=== PATIENT | male | born 1950 | race Caucasian/White ===

== ENCOUNTER 2018-05-15 20:11 | Outpatient (REF) | payer MEDICARE, BC, SELFPAY ==
[2018-05-15 20:44] LABS: Anion Gap 6.9 mmol/L (3-11); BUN 17 mg/dL (7-18); CO2 33.1 mmol/L (21.0-32.0); CREATININE 1.25 mg/dL (0.70-1.30); Calcium 8.9 mg/dL (8.5-10.1); Chloride 104 mmol/L (98-107); Estimated GFR 57.61 (mL/min/1.73m2); Glucose 95 mg/dL (70-100); Potassium 4.9 mmol/L (3.5-5.1); Sodium 144 mmol/L (136-145)
== END 2018-05-15 20:31 ==
LOC: NCHCN 20:11
PROVIDERS: PCP Specialist/Technologist Athletic Trainer; Visit Provider Specialist/Technologist Athletic Trainer
DX: I10 Essential (primary) hypertension (principal)
CPT/HCPCS: 80048

== ENCOUNTER 2020-08-09 08:14 | Outpatient (REF) | payer MEDICARE, BC, SELFPAY ==
[2020-08-09 13:47] LABS: HGB 14.8 g/dL (13.5-17.5); MCH 32.3 pg (27.0-33.0); MCHC 32.9 % (32.0-36.0); MCV 98.3 fL (80-95); MPV 10.9 fL (8.0-11.0); Platelet Count 191 10^3/uL (130-400); RBC 4.58 10^6/uL (4.36-5.78); RDW 12.4 % (11.8-14.1); RDW-SD 44.7 fL; WBC 5.33 10^3/uL (4.4-10.8)
[2020-08-09 14:32] LABS: Anion Gap 5.4 mmol/L (3-11); BUN 16 mg/dL (7-18); CO2 32.6 mmol/L (21.0-32.0); Calcium 8.7 mg/dL (8.5-10.1); Calculated LDL 144 mg/dL (<100); Chloride 106 mmol/L (98-107); Cholesterol 208 mg/dL (<200); Glucose 104 mg/dL (74-106); HDL Cholesterol 49 mg/dL (40-60); Potassium 5.3 mmol/L (3.5-5.1); Sodium 144 mmol/L (136-145); Triglyceride 77 mg/dL (<150)
== END 2020-08-09 08:15 | disposition home or self-care (01) ==
LOC: NCHCN 08:14
PROVIDERS: PCP Specialist/Technologist Athletic Trainer; Visit Provider Family Medicine
DX: I10 Essential (primary) hypertension (principal)
CPT/HCPCS: 80048; 80061; 85027

== ENCOUNTER 2021-07-26 14:30 | Outpatient (REF) | payer MEDICARE, BC, SELFPAY ==
[2021-07-26 18:58] LABS: ALT 27 U/L (16-63); AST 16 U/L (15-37); Albumin 3.9 g/dL (3.4-5.0); Alkaline Phosphatase 85 U/L (46-116); Anion Gap 8.4 mmol/L (3-11); BUN 17 mg/dL (7-18); CO2 27.6 mmol/L (21.0-32.0); Calculated LDL 155 mg/dL (<100); Chloride 105 mmol/L (98-107); Cholesterol 228 mg/dL (<200); Glucose 104 mg/dL (74-106); HDL Cholesterol 48 mg/dL (40-60); Potassium 5.6 mmol/L (3.5-5.1); Sodium 141 mmol/L (136-145); Total Protein 7.1 g/dL (6.4-8.2); Triglyceride 126 mg/dL (<150)
== END 2021-07-26 14:31 | disposition home or self-care (01) ==
LOC: NCHCN 14:30
PROVIDERS: PCP Specialist/Technologist Athletic Trainer; Visit Provider Family Medicine
DX: E78.5 Hyperlipidemia, unspecified (principal)
CPT/HCPCS: 80053; 80061

== ENCOUNTER 2021-11-09 18:41 | Outpatient (REF) | payer MEDICARE, BC, SELFPAY ==
[2021-11-09 16:26] LABS: Anion Gap 6.4 mmol/L (3-11); BUN 21 mg/dL (7-18); CO2 30.6 mmol/L (21.0-32.0); CREATININE 1.3 mg/dL (0.70-1.30); Calcium 8.9 mg/dL (8.5-10.1); Chloride 103 mmol/L (98-107); Estimated GFR 54.57 (mL/min/1.73m2); Glucose 86 mg/dL (74-106); Potassium 4.6 mmol/L (3.5-5.1); Sodium 140 mmol/L (136-145)
== END 2021-11-09 18:42 | disposition home or self-care (01) ==
LOC: NCHCN 18:41
PROVIDERS: PCP Specialist/Technologist Athletic Trainer; Visit Provider Family Medicine
DX: I10 Essential (primary) hypertension (principal)
CPT/HCPCS: 80048

== ENCOUNTER 2022-03-31 15:58 | Outpatient (REF) | payer MEDICARE, BC, SELFPAY ==
[2022-03-31 21:27] LABS: Abs Immature Grans 0.01 10^3/uL (0.0-0.06); Absolute Basophil Count 0.03 10^3/uL (0.0-0.2); Absolute Eosinophil Count 0.16 10^3/uL (0.0-0.7); Absolute Lymphocyte Count 2.25 10^3/uL (1.2-3.4); Absolute Monocyte Count 0.51 10^3/uL (0.1-0.8); Absolute Neutrophil Count 3.75 10^3/uL (1.2-6.7); Basophils % 0.4; Eosinophils % 2.4; HCT 40.5 % (40.0-50.0); HGB 13.3 g/dL (13.5-17.5); Immature Grans % 0.1; Lymphocytes % 33.5; MCH 32.4 pg (27.0-33.0); MCHC 32.8 % (32.0-36.0); MCV 99 fL (80-95); MPV 10.4 fL (8.0-11.0); Monocytes % 7.6; Platelet Count 229 10^3/uL (130-400); RDW 12.4 % (11.8-14.1); RDW-SD 45.1 fL; WBC 6.71 10^3/uL (4.4-10.8)
[2022-03-31 21:45] LABS: BUN 26 mg/dL (7-18); CREATININE 1.1 mg/dL (0.70-1.30); Calcium 8.6 mg/dL (8.5-10.1); Chloride 101 mmol/L (98-107); Estimated GFR 71.77 (mL/min/1.73m2); Glucose 99 mg/dL (74-106); Magnesium 2.1 mg/dL (1.8-2.4); Potassium 4.1 mmol/L (3.5-5.1); Sodium 140 mmol/L (136-145); TSH (W/Ref FT4) 2.27 uIU/mL (0.36-3.74)
== END 2022-03-31 15:59 | disposition home or self-care (01) ==
LOC: NCHCN 15:58
PROVIDERS: PCP Specialist/Technologist Athletic Trainer; Visit Provider Family Medicine
DX: R00.2 Palpitations (principal); I10 Essential (primary) hypertension
CPT/HCPCS: 80048; 83735; 84443; 85025

== ENCOUNTER 2022-04-06 10:57 | Outpatient (CLI) | payer MEDICARE, BC, SELFPAY | END 2022-04-06 10:58 | disposition home or self-care (01) | PROVIDERS: PCP Specialist/Technologist Athletic Trainer; Visit Provider Family Medicine | DX: R00.2 Palpitations (principal) | CPT/HCPCS: 93246 ==

== ENCOUNTER 2022-05-08 11:30 | Outpatient (CLI) | payer MEDICARE, BC, SELFPAY ==
--- NOTE | 2022-05-08 11:51 | W.CARDEVENT ---
Date of service: 05/08/22 Time of Service: 11:52 Cardiac Event Recorder Referring Provider:: Chau Braxton Indications:: Palpitations Cardiac Event Note: This is a 14-day cardiac event monitor ordered for palpitations Predominant rhythm was sinus with an average heart rate overall of 72. Minimum was 51, maximum 120 There were rare ventricular ectopic beats There were occasional atrial premature beat. A total of 31 self-limited atrial runs occurred. Most of these were 3-4 beats in length. The longest was 6 beats in length. There was no atrial fibrillation, no high-grade AV block, no pauses greater than 3 seconds no patient symptoms were reported
== END 2022-05-08 11:31 | disposition home or self-care (01) ==
LOC: CARDOPNVT 11:30
PROVIDERS: PCP Specialist/Technologist Athletic Trainer; Visit Provider Internal Medicine Cardiovascular Disease
DX: I49.1 Atrial premature depolarization (principal)
CPT/HCPCS: 93248

== ENCOUNTER 2022-08-17 10:39 | Outpatient (REF) | payer MEDICARE, BC, SELFPAY ==
[2022-08-17 16:13] LABS: BUN 22 mg/dL (7-18); CREATININE 1.3 mg/dL (0.70-1.30); Calcium 8.9 mg/dL (8.5-10.1); Chloride 103 mmol/L (98-107); Estimated GFR 58.73 (mL/min/1.73m2); Glucose 100 mg/dL (74-106); Potassium 4.6 mmol/L (3.5-5.1); Sodium 142 mmol/L (136-145)
== END 2022-08-17 10:40 | disposition home or self-care (01) ==
LOC: NCHCN 10:39
PROVIDERS: PCP Specialist/Technologist Athletic Trainer; Visit Provider Family Medicine
DX: I10 Essential (primary) hypertension (principal)
CPT/HCPCS: 80048; 84402; 84403

== ENCOUNTER 2022-08-21 18:40 | Outpatient (REF) | payer MEDICARE, BC, SELFPAY ==
[2022-08-29 17:51] LABS: Testosterone, Free 11.3 ng/dL (3.28-12.2); Testosterone, Total 365 ng/dL (240-950)
== END 2022-08-21 18:41 | disposition home or self-care (01) ==
LOC: NCHCN 18:40
PROVIDERS: PCP Specialist/Technologist Athletic Trainer; Visit Provider Family Medicine
DX: F52.21 Male erectile disorder (principal)
CPT/HCPCS: 84402; 84403

== ENCOUNTER 2023-01-03 04:02 | Outpatient (CLI) | payer MEDICARE, BC, SELFPAY ==
[2023-01-03 12:15] LABS: Abs Immature Grans 0.03 10^3/uL (0.0-0.06); Absolute Basophil Count 0.01 10^3/uL (0.0-0.2); Absolute Eosinophil Count 0.14 10^3/uL (0.0-0.7); Absolute Lymphocyte Count 2.41 10^3/uL (1.2-3.4); Absolute Monocyte Count 0.68 10^3/uL (0.1-0.8); Absolute Neutrophil Count 4.48 10^3/uL (1.2-6.7); Basophils % 0.1; Eosinophils % 1.8; HCT 36.5 % (40.0-50.0); HGB 11.9 g/dL (13.5-17.5); Immature Grans % 0.4; Lymphocytes % 31.1; MCH 31.3 pg (27.0-33.0); MCHC 32.6 % (32.0-36.0); MCV 96 fL (80-95); MPV 9.1 fL (8.0-11.0); Monocytes % 8.8; Neutrophils % 57.8; Platelet Count 267 10^3/uL (130-400); RDW 11.9 % (11.8-14.1); RDW-SD 42.1 fL; WBC 7.75 10^3/uL (4.4-10.8)
[2023-01-03 12:33] LABS: ALT 25 U/L (16-63); AST 20 U/L (15-37); Albumin 3.2 g/dL (3.4-5.0); Alkaline Phosphatase 135 U/L (46-116); Anion Gap 8.4 mmol/L (3-11); BUN 27 mg/dL (7-18); Bilirubin, Total 1.1 mg/dL (0.2-1.0); CO2 29.6 mmol/L (21.0-32.0); CREATININE 1.5 mg/dL (0.70-1.30); Calcium 9.2 mg/dL (8.5-10.1); Chloride 99 mmol/L (98-107); Estimated GFR 49.16 (mL/min/1.73m2); FREE T4 0.95 ng/dL (0.76-1.46); Glucose 122 mg/dL (74-106); Magnesium 2.3 mg/dL (1.8-2.4); Potassium 4.4 mmol/L (3.5-5.1); Sodium 137 mmol/L (136-145); TSH 1.52 uIU/mL (0.36-3.74); Total Protein 7.8 g/dL (6.4-8.2)
== END 2023-01-03 04:03 | disposition home or self-care (01) ==
PROVIDERS: Internal Medicine Medical Oncology; PCP Specialist/Technologist Athletic Trainer; Visit Provider Nurse Practitioner Family
DX: C34.11 Malignant neoplasm of upper lobe, right bronchus or lung (principal); Z79.899 Other long term (current) drug therapy
CPT/HCPCS: 36415; 80053; 83735; 84439; 84443; 85025

== ENCOUNTER 2023-01-22 10:33 | Outpatient (CLI) | payer MEDICARE, BC, SELFPAY ==
[2023-01-22 08:11] LABS: Abs Immature Grans 0.03 10^3/uL (0.0-0.06); Absolute Lymphocyte Count 1.48 10^3/uL (1.2-3.4); Absolute Monocyte Count 0.56 10^3/uL (0.1-0.8); Absolute Neutrophil Count 0.87 10^3/uL (1.2-6.7); Eosinophils % 3.3; HCT 30.5 % (40.0-50.0); Lymphocytes % 48.7; MCH 31.5 pg (27.0-33.0); MCHC 32.8 % (32.0-36.0); MCV 96 fL (80-95); MPV 8.1 fL (8.0-11.0); Monocytes % 18.4; Neutrophils % 28.6; Platelet Count 343 10^3/uL (130-400); RBC 3.17 10^6/uL (4.36-5.78); RDW-SD 43.2 fL; WBC 3.04 10^3/uL (4.4-10.8)
[2023-01-22 08:40] LABS: ALT 67 U/L (16-63); AST 23 U/L (15-37); Albumin 2.9 g/dL (3.4-5.0); Alkaline Phosphatase 151 U/L (46-116); BUN 14 mg/dL (7-18); Bilirubin, Total 0.5 mg/dL (0.2-1.0); CREATININE 1.4 mg/dL (0.70-1.30); Calcium 9.3 mg/dL (8.5-10.1); Chloride 100 mmol/L (98-107); FREE T4 1.04 ng/dL (0.76-1.46); Glucose 122 mg/dL (74-106); Magnesium 1.9 mg/dL (1.8-2.4); Potassium 4.5 mmol/L (3.5-5.1); Sodium 136 mmol/L (136-145); TSH 2.79 uIU/mL (0.36-3.74); Total Protein 7.3 g/dL (6.4-8.2)
[2023-01-22 09:01] LABS: Diff Comment Diff Reviewed; RBC Morphology Normal
== END 2023-01-22 10:34 | disposition home or self-care (01) ==
LOC: LBO 10:33
PROVIDERS: PCP Specialist/Technologist Athletic Trainer; Visit Provider Nurse Practitioner Family
DX: Z79.899 Other long term (current) drug therapy (principal)
CPT/HCPCS: 36415; 80053; 83735; 84439; 84443; 85025

== ENCOUNTER 2023-01-30 01:49 | Outpatient (CLI) | payer MEDICARE, BC, SELFPAY ==
[2023-01-30 11:39] LABS: Abs Immature Grans 0.24 10^3/uL (0.0-0.06); Absolute Basophil Count 0.03 10^3/uL (0.0-0.2); Absolute Eosinophil Count 0.02 10^3/uL (0.0-0.7); Absolute Lymphocyte Count 2.24 10^3/uL (1.2-3.4); Absolute Neutrophil Count 4.73 10^3/uL (1.2-6.7); Basophils % 0.4; Eosinophils % 0.2; HCT 31.7 % (40.0-50.0); HGB 10.3 g/dL (13.5-17.5); Immature Grans % 2.8; Lymphocytes % 26.5; MCH 31.8 pg (27.0-33.0); MCHC 32.5 % (32.0-36.0); MCV 98 fL (80-95); MPV 8.6 fL (8.0-11.0); Monocytes % 14.2; Neutrophils % 55.9; Platelet Count 301 10^3/uL (130-400); RBC 3.24 10^6/uL (4.36-5.78); RDW-SD 48.2 fL; WBC 8.46 10^3/uL (4.4-10.8)
[2023-01-30 12:04] LABS: ALT 32 U/L (16-63); AST 23 U/L (15-37); Alkaline Phosphatase 146 U/L (46-116); Anion Gap 8.5 mmol/L (3-11); BUN 17 mg/dL (7-18); Bilirubin, Total 0.6 mg/dL (0.2-1.0); CO2 28.5 mmol/L (21.0-32.0); CREATININE 1.2 mg/dL (0.70-1.30); Calcium 9.4 mg/dL (8.5-10.1); Chloride 98 mmol/L (98-107); Estimated GFR 64.25 (mL/min/1.73m2); FREE T4 1.03 ng/dL (0.76-1.46); Glucose 103 mg/dL (74-106); Potassium 4.1 mmol/L (3.5-5.1); Sodium 135 mmol/L (136-145); TSH 1.99 uIU/mL (0.36-3.74); Total Protein 7.6 g/dL (6.4-8.2)
== END 2023-01-30 01:50 | disposition home or self-care (01) ==
PROVIDERS: PCP Specialist/Technologist Athletic Trainer; Visit Provider Nurse Practitioner Family
DX: Z79.899 Other long term (current) drug therapy (principal); C34.11 Malignant neoplasm of upper lobe, right bronchus or lung
CPT/HCPCS: 36415; 80053; 83735; 84439; 84443; 85025

== ENCOUNTER 2023-02-19 03:28 | Outpatient (CLI) | payer MEDICARE, BC, SELFPAY ==
[2023-02-19 09:09] LABS: Abs Immature Grans 0.02 10^3/uL (0.0-0.06); Absolute Basophil Count 0.01 10^3/uL (0.0-0.2); Absolute Eosinophil Count 0.07 10^3/uL (0.0-0.7); Absolute Lymphocyte Count 1.63 10^3/uL (1.2-3.4); Absolute Monocyte Count 0.75 10^3/uL (0.1-0.8); Absolute Neutrophil Count 0.85 10^3/uL (1.2-6.7); Basophils % 0.3; Eosinophils % 2.1; HCT 30.2 % (40.0-50.0); HGB 9.7 g/dL (13.5-17.5); Immature Grans % 0.6; Lymphocytes % 48.9; MCH 32.2 pg (27.0-33.0); MCHC 32.1 % (32.0-36.0); MCV 100 fL (80-95); MPV 8.3 fL (8.0-11.0); Monocytes % 22.5; Neutrophils % 25.6; RBC 3.01 10^6/uL (4.36-5.78); RDW 16.6 % (11.8-14.1); RDW-SD 60.3 fL; WBC 3.33 10^3/uL (4.4-10.8)
[2023-02-19 09:37] LABS: ALT 35 U/L (16-63); AST 22 U/L (15-37); Albumin 3.1 g/dL (3.4-5.0); Alkaline Phosphatase 124 U/L (46-116); Anion Gap 6.3 mmol/L (3-11); BUN 23 mg/dL (7-18); Bilirubin, Total 0.6 mg/dL (0.2-1.0); CO2 27.7 mmol/L (21.0-32.0); CREATININE 1.5 mg/dL (0.70-1.30); Calcium 9.2 mg/dL (8.5-10.1); Chloride 104 mmol/L (98-107); Estimated GFR 49.16 (mL/min/1.73m2); FREE T4 0.92 ng/dL (0.76-1.46); Glucose 104 mg/dL (74-106); Magnesium 1.9 mg/dL (1.8-2.4); Potassium 4.2 mmol/L (3.5-5.1); Sodium 138 mmol/L (136-145); TSH 1.93 uIU/mL (0.36-3.74); Total Protein 7.6 g/dL (6.4-8.2)
[2023-02-19 09:50] LABS: Diff Comment Agrees w/ Instrument; Platelet Count 332 10^3/uL (130-400); RBC Morphology Normal
== END 2023-02-19 03:29 | disposition home or self-care (01) ==
PROVIDERS: PCP Specialist/Technologist Athletic Trainer; Visit Provider Nurse Practitioner Family
DX: Z79.899 Other long term (current) drug therapy (principal); C34.11 Malignant neoplasm of upper lobe, right bronchus or lung
CPT/HCPCS: 36415; 80053; 83735; 84439; 84443; 85025

== ENCOUNTER 2023-02-26 03:21 | Outpatient (CLI) | payer MEDICARE, BC, SELFPAY ==
[2023-02-26 12:25] LABS: Abs Immature Grans 0.06 10^3/uL (0.0-0.06); Absolute Basophil Count 0.03 10^3/uL (0.0-0.2); Absolute Eosinophil Count 0.07 10^3/uL (0.0-0.7); Absolute Lymphocyte Count 1.82 10^3/uL (1.2-3.4); Absolute Monocyte Count 0.81 10^3/uL (0.1-0.8); Absolute Neutrophil Count 3.35 10^3/uL (1.2-6.7); Basophils % 0.5; Eosinophils % 1.1; Lymphocytes % 29.6; MCH 32.3 pg (27.0-33.0); MCHC 32.3 % (32.0-36.0); MCV 100 fL (80-95); MPV 8.6 fL (8.0-11.0); Monocytes % 13.2; Neutrophils % 54.6; Platelet Count 268 10^3/uL (130-400); RDW 16.3 % (11.8-14.1); RDW-SD 59.2 fL; WBC 6.14 10^3/uL (4.4-10.8)
[2023-02-26 12:52] LABS: ALT 25 U/L (16-63); AST 22 U/L (15-37); Albumin 3.1 g/dL (3.4-5.0); Alkaline Phosphatase 136 U/L (46-116); Anion Gap 9.9 mmol/L (3-11); BUN 17 mg/dL (7-18); Bilirubin, Total 0.8 mg/dL (0.2-1.0); CO2 27.1 mmol/L (21.0-32.0); CREATININE 1.3 mg/dL (0.70-1.30); Calcium 9.1 mg/dL (8.5-10.1); Chloride 100 mmol/L (98-107); Estimated GFR 58.37 (mL/min/1.73m2); FREE T4 0.98 ng/dL (0.76-1.46); Glucose 117 mg/dL (74-106); Magnesium 2.3 mg/dL (1.8-2.4); Potassium 4.3 mmol/L (3.5-5.1); Sodium 137 mmol/L (136-145); TSH 3.16 uIU/mL (0.36-3.74); Total Protein 7.5 g/dL (6.4-8.2)
== END 2023-02-26 03:22 | disposition home or self-care (01) ==
PROVIDERS: PCP Specialist/Technologist Athletic Trainer; Visit Provider Nurse Practitioner Family
DX: Z79.899 Other long term (current) drug therapy (principal); C34.11 Malignant neoplasm of upper lobe, right bronchus or lung
CPT/HCPCS: 36415; 80053; 83735; 84439; 84443; 85025

== ENCOUNTER 2023-03-19 04:29 | Outpatient (CLI) | payer MEDICARE, BC, SELFPAY ==
[2023-03-19 09:32] LABS: Abs Immature Grans 0.12 10^3/uL (0.0-0.06); Absolute Basophil Count 0.02 10^3/uL (0.0-0.2); Absolute Eosinophil Count 0.04 10^3/uL (0.0-0.7); Absolute Lymphocyte Count 1.84 10^3/uL (1.2-3.4); Absolute Monocyte Count 0.93 10^3/uL (0.1-0.8); Absolute Neutrophil Count 3.75 10^3/uL (1.2-6.7); Basophils % 0.3; Eosinophils % 0.6; HCT 30.8 % (40.0-50.0); HGB 9.9 g/dL (13.5-17.5); Immature Grans % 1.8; Lymphocytes % 27.5; MCH 33.1 pg (27.0-33.0); MCHC 32.1 % (32.0-36.0); MCV 103 fL (80-95); MPV 8.9 fL (8.0-11.0); Monocytes % 13.9; Neutrophils % 55.9; Platelet Count 366 10^3/uL (130-400); RBC 2.99 10^6/uL (4.36-5.78); RDW 17.9 % (11.8-14.1); RDW-SD 66.6 fL
[2023-03-19 10:05] LABS: ALT 36 U/L (16-63); AST 29 U/L (15-37); Albumin 3.1 g/dL (3.4-5.0); Alkaline Phosphatase 114 U/L (46-116); Anion Gap 5.9 mmol/L (3-11); BUN 19 mg/dL (7-18); Bilirubin, Total 0.7 mg/dL (0.2-1.0); CO2 28.1 mmol/L (21.0-32.0); CREATININE 1.3 mg/dL (0.70-1.30); Calcium 8.9 mg/dL (8.5-10.1); Chloride 105 mmol/L (98-107); Estimated GFR 58.37 (mL/min/1.73m2); Glucose 99 mg/dL (74-106); Magnesium 2.1 mg/dL (1.8-2.4); Potassium 4.5 mmol/L (3.5-5.1); Sodium 139 mmol/L (136-145); TSH 1.95 uIU/mL (0.36-3.74); Total Protein 7.5 g/dL (6.4-8.2)
== END 2023-03-19 04:30 | disposition home or self-care (01) ==
PROVIDERS: PCP Specialist/Technologist Athletic Trainer; Visit Provider Nurse Practitioner Family
DX: Z79.899 Other long term (current) drug therapy (principal); C34.11 Malignant neoplasm of upper lobe, right bronchus or lung
CPT/HCPCS: 36415; 80053; 83735; 84439; 84443; 85025

== ENCOUNTER 2023-04-09 05:01 | Outpatient (CLI) | payer MEDICARE, BC, SELFPAY ==
[2023-04-09 08:50] LABS: Absolute Basophil Count 0.06 10^3/uL (0.0-0.2); Absolute Eosinophil Count 0.09 10^3/uL (0.0-0.7); Absolute Lymphocyte Count 1.67 10^3/uL (1.2-3.4); Absolute Monocyte Count 0.89 10^3/uL (0.1-0.8); Absolute Neutrophil Count 4.98 10^3/uL (1.2-6.7); Basophils % 0.8; Eosinophils % 1.1; HCT 30.7 % (40.0-50.0); HGB 9.9 g/dL (13.5-17.5); Immature Grans % 2.5; Lymphocytes % 21.2; MCHC 32.2 % (32.0-36.0); MCV 106 fL (80-95); MPV 8.5 fL (8.0-11.0); Monocytes % 11.3; Neutrophils % 63.1; Platelet Count 269 10^3/uL (130-400); RBC 2.91 10^6/uL (4.36-5.78); RDW 18.2 % (11.8-14.1); RDW-SD 70.6 fL; WBC 7.89 10^3/uL (4.4-10.8)
[2023-04-09 09:22] LABS: ALT 32 U/L (16-63); AST 27 U/L (15-37); Alkaline Phosphatase 128 U/L (46-116); Anion Gap 8.5 mmol/L (3-11); BUN 14 mg/dL (7-18); CO2 27.5 mmol/L (21.0-32.0); CREATININE 1.4 mg/dL (0.70-1.30); Calcium 8.3 mg/dL (8.5-10.1); Chloride 103 mmol/L (98-107); FREE T4 0.97 ng/dL (0.76-1.46); Glucose 123 mg/dL (74-106); Magnesium 1.8 mg/dL (1.8-2.4); Potassium 4.4 mmol/L (3.5-5.1); Sodium 139 mmol/L (136-145); Total Protein 7.3 g/dL (6.4-8.2)
== END 2023-04-09 05:02 | disposition home or self-care (01) ==
PROVIDERS: PCP Specialist/Technologist Athletic Trainer; Visit Provider Nurse Practitioner Family
DX: Z79.899 Other long term (current) drug therapy (principal); C34.11 Malignant neoplasm of upper lobe, right bronchus or lung
CPT/HCPCS: 36415; 80053; 83735; 84439; 84443; 85025

== ENCOUNTER 2023-05-02 04:27 | Outpatient (CLI) | payer MEDICARE, BC, SELFPAY ==
[2023-05-02 07:29] LABS: Abs Immature Grans 0.09 10^3/uL (0.0-0.06); Absolute Basophil Count 0.03 10^3/uL (0.0-0.2); Absolute Eosinophil Count 0.05 10^3/uL (0.0-0.7); Absolute Lymphocyte Count 1.97 10^3/uL (1.2-3.4); Absolute Monocyte Count 0.92 10^3/uL (0.1-0.8); Absolute Neutrophil Count 3.95 10^3/uL (1.2-6.7); Basophils % 0.4; Eosinophils % 0.7; HCT 28.9 % (40.0-50.0); HGB 9.5 g/dL (13.5-17.5); Immature Grans % 1.3; Lymphocytes % 28.1; MCH 35.4 pg (27.0-33.0); MCHC 32.9 % (32.0-36.0); MCV 108 fL (80-95); MPV 8.3 fL (8.0-11.0); Monocytes % 13.1; Neutrophils % 56.4; Platelet Count 241 10^3/uL (130-400); RBC 2.68 10^6/uL (4.36-5.78); RDW 16.4 % (11.8-14.1); WBC 7.01 10^3/uL (4.4-10.8)
[2023-05-02 07:55] LABS: ALT 26 U/L (16-63); AST 21 U/L (15-37); Alkaline Phosphatase 123 U/L (46-116); Anion Gap 8.4 mmol/L (3-11); BUN 22 mg/dL (7-18); Bilirubin, Total 0.8 mg/dL (0.2-1.0); CO2 28.6 mmol/L (21.0-32.0); CREATININE 1.5 mg/dL (0.70-1.30); Calcium 8.9 mg/dL (8.5-10.1); Chloride 98 mmol/L (98-107); Estimated GFR 49.16 (mL/min/1.73m2); FREE T4 0.97 ng/dL (0.76-1.46); Glucose 130 mg/dL (74-106); Magnesium 1.9 mg/dL (1.8-2.4); Potassium 4.1 mmol/L (3.5-5.1); Sodium 135 mmol/L (136-145); Total Protein 7.5 g/dL (6.4-8.2)
== END 2023-05-02 04:28 | disposition home or self-care (01) ==
PROVIDERS: PCP Specialist/Technologist Athletic Trainer; Visit Provider Nurse Practitioner Family
DX: Z79.899 Other long term (current) drug therapy (principal); C34.11 Malignant neoplasm of upper lobe, right bronchus or lung
CPT/HCPCS: 36415; 80053; 83735; 84439; 84443; 85025

== ENCOUNTER 2023-05-03 07:41 | Emergency (ER) | payer MEDICARE, BC, SELFPAY ==
[2023-05-03] VITALS (7 sets, daily range): BP systolic 109–142; BP diastolic 60–76; PULSE 85–99; RESP 20; TEMP 37.1–37.7; O2SAT 96–98
--- NOTE | 2023-05-03 07:42 | W.ED.GENAD ---
HPI General Date/Time Provider Initiated Documentation: 05/03/23 07:42. HPI Narrative: MDM This is an overall well-appearing normothermic and not tachycardic 72-year-old male chemotherapy patient with fever and possibility of neutropenic fever for which patient will receive lactate broad-spectrum antibiotics. Patient has resolving thrush in his mouth but no signs of mucositis. No signs of acute otitis media. No brawny edema submentally to suggest Rinku's angina. Clear lungs so lower suspicion for pneumonia. Patient the patient's history of malignancy he has a Wells score of 1 making him low risk for PE so we will obtain a D-dimer. No nuchal rigidity to suggest meningitis. No rash to suggest cellulitis. No pain out of proportion to suggest necrotizing soft tissue infection. No dysuria no frequency however will send urinalysis to assess for UTI. Soft nontender abdomen so low suspicion for intra-abdominal process. Furthermore no nausea vomiting or diarrhea. 8:20 AM Reassuring normal lactate. CBC lacks leukocytosis and leukopenia. Mild macrocytic anemia similar to prior. No thrombocytopenia. 8:51 AM Comprehensive metabolic panel showing very mild hyponatremia similar to prior. No ELLEN. Mildly elevated BUN improved compared to prior. Mild hyperglycemia but no anion gap??normal bicarbonate??not consistent with DKA. Mildly elevated alkaline phosphatase similar to prior. Mild hypoalbuminemia. Elevated D-dimer for which patient will undergo CTA to assess for PE. 9:35 AM Urinalysis nitrite leukoesterase negative -?not consistent with UTI. Patient was found to be COVID-positive which certainly could explain his fever and dry cough. [place] speak [place] [facility] consult neck steps. Patient reports that has received some of his early vaccines against COVID. He is not hypoxic and certainly does not require hospitalization nor dexamethasone. 9:45 AM I spoke with Dr. Garay from [place] [facility] [place] Given that the patient had had symptoms for several days he advised empiric trial of expectant outpatient management with strict return indications. Patient and his and I discussed return to ED for inability to tolerate p.o. any nausea or vomiting. Chronic conditions affecting the care of the patient: Metastatic lung cancer History obtained from an outside historian: Patient's External record [place] [facility] [place] [Diagnostic interpretations performed by me: Per my independent interpretation chest x-ray shows: Concern for deep sulcus sign on left Medications: Cefepime vancomycin and acetaminophen Social determinants of health affecting disposition: N/A Management discussed with:on[place] [facility] Treatment/interventions considered: anti-virals but deferred Response to therapies provided: N/A HPI This is a 72-year-old male with a history of stage IV non-small cell lung cancer on chemotherapy arriving to the emergency department via private vehicle in the setting of a fever. Patient last had chemotherapy on 03/11/2023, approximately 3 weeks ago. This morning had a temperature up to 100.8 ?F as taken orally. He skipped his chemotherapy treatment yesterday as result of fatigue. He has intermittently had a cough. It has not been productive. There are no sick contacts. He has not had a sore throat. He transiently had some left ear discomfort but this is bit resolving. He is on treatment for oral thrush with nystatin. He denies shortness of breath chest pain abdominal pain dysuria frequency headache and any rashes. No recent falls. He lives in [facility]. Exam General: Well-appearing in no acute distress speaking in complete sentences. Head: Normocephalic, atraumatic. Eye: Extraocular eye movements intact. No conjunctival injection. No scleral icterus. Ear, nose, mouth, throat: Grossly normal inspection. Normal voice, handling secretions normally. Bilateral TMs clear. Dental caries. Resolving thrush Neck: Trachea midline. No nuchal rigidity Cardiovascular: Well-perfused distal extremities. Regular rate and rhythm Respiratory: Nonlabored respiration. Clear lungs bilaterally Gastrointestinal: Nondistended abdomen. Soft nontender Musculoskeletal: No edema. Moving all 4 extremities spontaneously. Skin: Normal for age and race, grossly normal temperature and turgor. No acute rash. Neurologic: Alert and appropriate, no apparent acute deficits. GCS 15 Psychiatric: Mood and manner are appropriate. Grooming and personal hygiene are appropriate. Related Data Home Medications Medication Instructions Recorded Confirmed fluticasone propionate 50 1 spray intranasal DAILY 05/03/23 05/03/23 mcg/actuation nasal spray,suspension folic acid 1 mg tablet 1 mg PO DAILY 05/03/23 05/03/23 lisinopril 10 1 tab PO DAILY 05/03/23 05/03/23 mg-hydrochlorothiazide 12.5 mg tablet [id number] 3.5 4 drp otic (ear) QID 05/03/23 05/03/23 mg-10,000 unit/mL-1 % ear drops,susp nystatin 100,000 unit/mL oral 100,000 unit PO DAILY 05/03/23 05/03/23 suspension prochlorperazine maleate 10 mg 10 mg PO QID PRN 05/03/23 05/03/23 tablet sildenafil 50 mg tablet 50 mg PO PRN PRN 05/03/23 05/03/23 Allergies Allergy/AdvReac Type Severity Reaction Status Date / Time No Known Allergies Allergy Unverified 05/03/23 07:51 PFSH All Active Problems (Updated 05/03/23 @ 20:47 by Abdirahman Stapleton MD) COVID (Acute) Social History Smoking/Tobacco Use Status: Former Tobacco Use Smoking risk assessment performed?: Yes Alcohol Intake: current Alcohol Intake frequency: holidays/special occasions only Alcohol type: beer Substance use type: does not use Housing: house Do you feel safe at home: Yes Do you feel safe in your relationship?: Yes Medical Decision Making Quality:SDOH Health Related Social Needs: No Data to Display Discharge Plan Disposition Patient Disposition: Home Discharge Details Clinical Impression: COVID Primary Care Provider: Manuel Baker ED Provider: Abdirahman Stapleton Home Meds and New Rx's Prescriptions: Continued nystatin 100,000 unit/mL suspension 100,000 unit PO DAILY sildenafil 50 mg tablet 50 mg PO PRN PRN Patient Comments: Take 1 tablet by mouth once a day as needed take 1 hour prior to sexual activity. prochlorperazine maleate 10 mg tablet 10 mg PO QID PRN Patient Comments: TAKE ONE TABLET BY MOUTH EVERY SIX HOURS NEEDED FOR NAUSEA folic acid 1 mg tablet 1 mg PO DAILY Patient Comments: TAKE ONE TABLET BY MOUTH ONCE DAILY lisinopril-hydrochlorothiazide 10-12.5 mg tablet 1 tab PO DAILY fluticasone propionate 50 mcg/actuation spray,suspension 1 spray INTRANASAL DAILY Patient Comments: [place] 1 spray into both nostrils twice a day. voftyhgp-[id number] 3.5-10,000-1 mg/mL-unit/mL-% drops,suspension 4 drp otic (ear) QID Patient Comments: Instill 4 drops into affected ear four times a day for 7 days Discharge Instructions Additional Instructions: You were seen in the emergency department for your cough and fever. You are found to have COVID. Your CAT scan showed no sign of any pneumonia. Your blood work shows that you do not have a low white blood cell count. Please return to the emergency department if you cannot eat or drink as a result of nausea or vomiting. Please quarantine at home until your symptoms resolve or until you test negative on a home COVID test, which ever comes first. For your fever please take medications as follows: 1. Take acetaminophen (Tylenol), 1,000 mg (two 500 mg tabs) every 6 hours 2. Take ibuprofen (Advil), 200 mg every 12 hours. Discharge Data Discharge Date/Time-TO BE ENTERED AT DEPARTURE: 05/03/23 10:05
[2023-05-03] MEDS: Normal Saline 500 ML IV (08:07)
[2023-05-03] MEDS: CEFEPIME 2 GM in Normal Saline 100 ML IVPB (08:07)
[2023-05-03] MEDS: Acetaminophen 500 MG TAB 1000 MG PO (08:08)
[2023-05-03 08:09] LABS: Lactate 1.1 mmol/L (0.6-1.4)
[2023-05-03 08:11] LABS: Abs Immature Grans 0.07 10^3/uL (0.0-0.06); Absolute Basophil Count 0.02 10^3/uL (0.0-0.2); Absolute Eosinophil Count 0.03 10^3/uL (0.0-0.7); Absolute Lymphocyte Count 0.96 10^3/uL (1.2-3.4); Absolute Monocyte Count 1.23 10^3/uL (0.1-0.8); Absolute Neutrophil Count 5.37 10^3/uL (1.2-6.7); Basophils % 0.3; Eosinophils % 0.4; HCT 27.8 % (40.0-50.0); HGB 9.1 g/dL (13.5-17.5); Immature Grans % 0.9; Lymphocytes % 12.5; MCH 35.5 pg (27.0-33.0); MCHC 32.7 % (32.0-36.0); MPV 8.4 fL (8.0-11.0); Neutrophils % 69.9; Platelet Count 249 10^3/uL (130-400); RBC 2.56 10^6/uL (4.36-5.78); RDW 16.3 % (11.8-14.1); RDW-SD 65.9 fL; WBC 7.68 10^3/uL (4.4-10.8)
[2023-05-03 08:12] LABS: MCV 109 fL (80-95)
--- NOTE | 2023-05-03 08:18 | DI.RAD_ITS ---
Exam(s) XR PORTABLE CHEST AP EXAM: XR PORTABLE CHEST AP CLINICAL HISTORY: Fever TECHNIQUE: 2D digital imaging was performed of the chest. One image was obtained. An AP view was ob tained. COMPARISON: No exams were available for comparison FINDINGS: MEDIASTINUM: Normal. HEART: Normal. PULMONARY VASCULATURE: Normal. LUNGS: There is volume loss and opacity in the right upper lobe. PLEURAL SPACE: No pleural effusion or pneumothorax. BONE:Within normal limits for the patient's age. OTHER FINDINGS:There is elevation of the right hemidiaphragm. IMPRESSION: Opacity in the right upper lobe with loss of volume. This may represent a pneumonia. A follow-up ch est x-ray is recommended to document resolution of the infiltrate and to exclude an underlying abnorm ality. If the opacity and volume loss persist, a CT scan of the chest should be obtained for further evaluation. DATA REPOSITORY: RADIATION DOSE DELIVERED:
[2023-05-03 08:34] LABS: ALT 35 U/L (16-63); AST 29 U/L (15-37); Albumin 3.1 g/dL (3.4-5.0); Alkaline Phosphatase 129 U/L (46-116); Anion Gap 8.2 mmol/L (3-11); BUN 19 mg/dL (7-18); Bilirubin, Total 0.6 mg/dL (0.2-1.0); CO2 28.8 mmol/L (21.0-32.0); CREATININE 1.4 mg/dL (0.70-1.30); Calcium 8.6 mg/dL (8.5-10.1); Chloride 98 mmol/L (98-107); Glucose 111 mg/dL (74-106); Potassium 4.5 mmol/L (3.5-5.1); Sodium 135 mmol/L (136-145); Total Protein 7.7 g/dL (6.4-8.2)
--- NOTE | 2023-05-03 08:45 | DI.CT_ITS ---
Exam(s) CT CHEST PE CTA EXAM: CT CHEST PE CTA CLINICAL HISTORY: Fever. TECHNIQUE: Imaging Protocol: Axial CT angiography was performed with multi-slice acquisition and mu lti-planar and/or 3D reconstructions. CONTRAST MATERIAL: Intravenous: Omnipaque 350 contrast volume:100 mL COMPARISON: CR XR CHEST ONE VIEW from 11/23/2022 CT,PT NM PET CT STANDARD SKULL BASE TO MID-THIGH from 11/28/2022 CR XR PORTABLE CHEST AP from 05/03/2023 FINDINGS: Tracheobronchial tree: Patent where visualized. Pulmonary parenchyma: There has been interval decrease in size of the right upper lobe central mass m easuring 5.1 AP by 3.3 transverse. This compares to 6.7 x 4.5 cm on the prior examination from 023. The postobstructive infiltrate previously seen has significantly improved. Nodular areas are s een extending from the mass into the periphery of the right upper lobe which may reflect metastatic d isease. There is a calcified granuloma in the right lower lobe. The remainder of the lung is clear. Pulmonary Arteries: No evidence of filling defect to suggest pulmonary emboli. Pulmonary artery branc hes to the right upper lobe are attenuated likely secondary to compression by the right upper lobe ma ss. Mediastinum and Vivi: There is confluent soft tissue again seen in the mediastinum particularly aroun d the distal trachea and subcarinal region. This appears stable. The esophagus is unremarkable. Visualized thyroid gland: Unremarkable. Pleura: No effusion or pneumothorax. Heart: The heart is not dilated. Coronary artery calcifications and/or stents are present. No perica rdial effusion. Aorta: Thoracic aorta non-dilated. No evidence of dissection. Mild atherosclerosis. Upper abdomen: Unremarkable. Soft tissues: Unremarkable. Bones: Within normal limits for the patient's age. IMPRESSION: 1. No evidence of pulmonary embolism, thoracic aortic dissection or aneurysm. 2. Interval decrease in size of the right upper lobe central mass. Stable mediastinal adenopathy. N odular areas extending from the mass to the periphery of the right upper lobe which may reflect metas tatic disease. 3. Findings were discussed with Dr. Stapleton at 9:40 a.m. on 05/03/2023. RADIATION DOSE DELIVERED: Total DLP DATA REPOSITORY: All CT scans at this facility are submitted to the National Radiology Data Registry (NRDR) Dose Index Registry (DIR) with the [employer] (ACR). RADIATION OPTIMIZATION: All CT scans at this facility use at least one of these dose optimization te chniques: automated exposure control; mA and/or kV adjustment per patient size (includes targeted exa ms where dose is matched to clinical indication); or iterative reconstruction.
[2023-05-03 08:49] LABS: D-Dimer 1787 ng/mlFEU (<500)
[2023-05-03] MEDS: VANCOMYCIN/WATER (PEG) 1.5 GM/300 ML BAG IV (08:49)
[2023-05-03 09:12] LABS: Influenza A PCR Negative (Negative); Influenza B PCR Negative (Negative); RSV PCR Negative (Negative)
[2023-05-03 09:13] LABS: COVID-19 PCR Positive (Negative)
[2023-05-03 09:30] LABS: Bilirubin Negative (Negative); Blood Negative (Negative); Clarity Clear (Clear); Glucose Negative (Negative); Ketones Negative (Negative); Leukocyte Esterase Negative (Negative); Nitrite Negative (Negative); Urobilinogen 0.2 mg/dL (Up to 0.2)
== END 2023-05-03 10:05 | disposition home or self-care (01) ==
PROVIDERS: Emergency Provider Emergency Medicine; PCP Specialist/Technologist Athletic Trainer
DX: U07.1 COVID-19 (principal); E87.1 Hypo-osmolality and hyponatremia; R79.1 Abnormal coagulation profile; B37.0 Candidal stomatitis; C34.90 Malignant neoplasm of unspecified part of unspecified bronchus or lung; C79.9 Secondary malignant neoplasm of unspecified site; Z92.21 Personal history of antineoplastic chemotherapy; Z87.891 Personal history of nicotine dependence
CPT/HCPCS: 36415; 71275; 80053; 87040; 87637; 96365; 96368; 99285; 71045; 81003; 83605; 85025; 85379; 99284; J0692; J3372

== ENCOUNTER 2023-05-21 04:15 | Outpatient (CLI) | payer MEDICARE, BC, SELFPAY ==
[2023-05-21 08:23] LABS: Abs Immature Grans 0.03 10^3/uL (0.0-0.06); Absolute Basophil Count 0.03 10^3/uL (0.0-0.2); Absolute Eosinophil Count 0.18 10^3/uL (0.0-0.7); Absolute Lymphocyte Count 1.61 10^3/uL (1.2-3.4); Absolute Monocyte Count 0.66 10^3/uL (0.1-0.8); Absolute Neutrophil Count 2.88 10^3/uL (1.2-6.7); Basophils % 0.6; Eosinophils % 3.3; HCT 27.8 % (40.0-50.0); HGB 8.9 g/dL (13.5-17.5); Immature Grans % 0.6; Lymphocytes % 29.9; MCH 34.6 pg (27.0-33.0); MCV 108 fL (80-95); MPV 8.4 fL (8.0-11.0); Monocytes % 12.2; Neutrophils % 53.4; Platelet Count 284 10^3/uL (130-400); RBC 2.57 10^6/uL (4.36-5.78); RDW-SD 55.8 fL; WBC 5.39 10^3/uL (4.4-10.8)
[2023-05-21 09:08] LABS: ALT 30 U/L (16-63); AST 26 U/L (15-37); Albumin 3.1 g/dL (3.4-5.0); Alkaline Phosphatase 122 U/L (46-116); Anion Gap 8.4 mmol/L (3-11); BUN 28 mg/dL (7-18); Bilirubin, Total 0.6 mg/dL (0.2-1.0); CO2 27.6 mmol/L (21.0-32.0); CREATININE 1.5 mg/dL (0.70-1.30); Calcium 9.1 mg/dL (8.5-10.1); Chloride 102 mmol/L (98-107); Estimated GFR 49.16 (mL/min/1.73m2); FREE T4 0.93 ng/dL (0.76-1.46); Glucose 94 mg/dL (74-106); Potassium 4.6 mmol/L (3.5-5.1); Sodium 138 mmol/L (136-145); TSH 2.11 uIU/mL (0.36-3.74); Total Protein 7.8 g/dL (6.4-8.2)
== END 2023-05-21 04:16 | disposition home or self-care (01) ==
PROVIDERS: PCP Specialist/Technologist Athletic Trainer; Visit Provider Nurse Practitioner Family
DX: Z79.899 Other long term (current) drug therapy (principal)
CPT/HCPCS: 36415; 80053; 83735; 84439; 84443; 85025

== ENCOUNTER 2023-05-30 04:20 | Outpatient (CLI) | payer MEDICARE, BC, SELFPAY ==
[2023-05-30 10:57] LABS: Abs Immature Grans 0.02 10^3/uL (0.0-0.06); Absolute Basophil Count 0.03 10^3/uL (0.0-0.2); Absolute Eosinophil Count 0.14 10^3/uL (0.0-0.7); Absolute Lymphocyte Count 1.78 10^3/uL (1.2-3.4); Absolute Monocyte Count 0.59 10^3/uL (0.1-0.8); Absolute Neutrophil Count 2.84 10^3/uL (1.2-6.7); Basophils % 0.6; Eosinophils % 2.6; HCT 28.4 % (40.0-50.0); HGB 9.3 g/dL (13.5-17.5); Immature Grans % 0.4; MCH 35.1 pg (27.0-33.0); MCHC 32.7 % (32.0-36.0); MPV 8.9 fL (8.0-11.0); Monocytes % 10.9; Neutrophils % 52.5; Platelet Count 255 10^3/uL (130-400); RBC 2.65 10^6/uL (4.36-5.78); RDW 13.3 % (11.8-14.1); RDW-SD 52.4 fL
[2023-05-30 10:58] LABS: MCV 107 fL (80-95)
[2023-05-30 10:59] LABS: Bilirubin Negative (Negative); Blood Negative (Negative); Clarity Clear (Clear); Glucose Negative (Negative); Ketones Trace mg/dL (Negative); Leukocyte Esterase Negative (Negative); Nitrite Negative (Negative); Specific Gravity 1.015 (1.005-1.025); Urobilinogen 0.2 mg/dL (Up to 0.2)
[2023-05-30 11:21] LABS: ALT 27 U/L (16-63); AST 21 U/L (15-37); Albumin 3.2 g/dL (3.4-5.0); Alkaline Phosphatase 131 U/L (46-116); Anion Gap 7.5 mmol/L (3-11); BUN 25 mg/dL (7-18); Bilirubin, Total 0.8 mg/dL (0.2-1.0); CO2 28.5 mmol/L (21.0-32.0); CREATININE 1.3 mg/dL (0.70-1.30); Chloride 99 mmol/L (98-107); Estimated GFR 58.37 (mL/min/1.73m2); FREE T4 0.98 ng/dL (0.76-1.46); Glucose 107 mg/dL (74-106); Magnesium 2.2 mg/dL (1.8-2.4); Potassium 5.1 mmol/L (3.5-5.1); Sodium 135 mmol/L (136-145); TSH 2.11 uIU/mL (0.36-3.74); Total Protein 7.9 g/dL (6.4-8.2)
== END 2023-05-30 04:21 | disposition home or self-care (01) ==
PROVIDERS: PCP Family Medicine; Visit Provider Nurse Practitioner Family
DX: C34.11 Malignant neoplasm of upper lobe, right bronchus or lung (principal); Z79.899 Other long term (current) drug therapy; R82.998 Other abnormal findings in urine
CPT/HCPCS: 36415; 80053; 81003; 83735; 84439; 84443; 85025

== ENCOUNTER → 2023-06-11 01:44 | Outpatient (CLI) | payer MEDICARE, BC, SELFPAY ==
--- NOTE | 2023-06-11 | DI.MRI_ITS ---
Exam(s) MR BRAIN WO/W EXAM: MR BRAIN WO/W CLINICAL HISTORY: METS TO BONE, C79.51, MONITOR BRAIN METS. TECHNIQUE: Multiplanar multisequence MRI of the brain was performed. CONTRAST MATERIAL: IV Contrast: 14 ML of Dotarem contrast administered. CT,PT NM PET CT STANDARD SKULL BASE TO MID-THIGH from 11/28/2022 FINDINGS: VENTRICLES AND EXTRA AXIAL SPACES: Normal in size and morphology for the patient's age. HEMORRHAGE: None. CEREBRAL PARENCHYMA: No focus of restricted diffusion to suggest acute infarct. No space-occupying le jose elias identified. No abnormal white matter lesions. MIDLINE SHIFT: None. BRAINSTEM/CEREBELLUM: Normal. CALVARIUM: Approximately 2.8 x 8 centimeter area of intermediate signal within the lateral left occip ital bone with mild enhancement. The enhancing soft tissue component is much less prominent when comp ared with prior MRI. No new bone lesions identified. ENHANCEMENT: No suspicious enhancement identified in the brain. VISUALIZED PARANASAL SINUSES/MASTOIDS: Mild mucosal thickening. Small amount of fluid in the left mas toid air cells. Orbits: Unremarkable. Pituitary: Normal. Vasculature: Normal flow voids. IMPRESSION: No evidence of brain metastases. Marked interval improvement the in left occipital skull metaphysis w ith marked decrease in amount of soft tissue component. DATA REPOSITORY:
[2023-06-11] MEDS: Normal Saline Flush 10 ML SYR IVP (12:28)
[2023-06-11] MEDS: Gadoterate meglumine 20 ML SYRINGE 14 ML IVP (12:29)
== END ==
PROVIDERS: PCP Family Medicine; Visit Provider Radiology Radiation Oncology
DX: C79.51 Secondary malignant neoplasm of bone (principal)
CPT/HCPCS: 70553

== ENCOUNTER 2023-06-20 01:31 | Outpatient (CLI) | payer MEDICARE, BC, SELFPAY ==
[2023-06-20 07:59] LABS: Abs Immature Grans 0.01 10^3/uL (0.0-0.06); Absolute Basophil Count 0.02 10^3/uL (0.0-0.2); Absolute Eosinophil Count 0.11 10^3/uL (0.0-0.7); Absolute Lymphocyte Count 1.98 10^3/uL (1.2-3.4); Absolute Monocyte Count 0.66 10^3/uL (0.1-0.8); Absolute Neutrophil Count 3.09 10^3/uL (1.2-6.7); Basophils % 0.3; Eosinophils % 1.9; HCT 32.7 % (40.0-50.0); HGB 10.6 g/dL (13.5-17.5); Immature Grans % 0.2; Lymphocytes % 33.7; MCH 34.4 pg (27.0-33.0); MCHC 32.4 % (32.0-36.0); MPV 8.4 fL (8.0-11.0); Monocytes % 11.2; Neutrophils % 52.7; Platelet Count 226 10^3/uL (130-400); RBC 3.08 10^6/uL (4.36-5.78); RDW 12.4 % (11.8-14.1); RDW-SD 49.1 fL; WBC 5.87 10^3/uL (4.4-10.8)
[2023-06-20 08:00] LABS: Bilirubin Negative (Negative); Blood Trace-intact (Negative); Clarity Clear (Clear); Glucose Negative (Negative); Ketones Negative (Negative); Leukocyte Esterase Negative (Negative); MCV 106 fL (80-95); Nitrite Negative (Negative); Specific Gravity 1.015 (1.005-1.025); Urobilinogen 0.2 mg/dL (Up to 0.2); pH 5.5 (5-8)
[2023-06-20 08:08] LABS: Bacteria Negative HPF (Negative); C & S Indicated? No; Casts Negative LPF (Negative); Crystals Negative HPF (Negative); Epithelial Cells Rare HPF (Negative); Mucus Trace (Negative); WBC 0-2 HPF (0-5)
[2023-06-20 08:24] LABS: ALT 29 U/L (16-63); AST 25 U/L (15-37); Albumin 2.9 g/dL (3.4-5.0); Alkaline Phosphatase 125 U/L (46-116); Anion Gap 8.3 mmol/L (3-11); BUN 19 mg/dL (7-18); Bilirubin, Total 0.9 mg/dL (0.2-1.0); CO2 26.7 mmol/L (21.0-32.0); CREATININE 1.5 mg/dL (0.70-1.30); Calcium 8.6 mg/dL (8.5-10.1); Chloride 100 mmol/L (98-107); Estimated GFR 49.16 (mL/min/1.73m2); FREE T4 0.95 ng/dL (0.76-1.46); Glucose 111 mg/dL (74-106); Magnesium 1.8 mg/dL (1.8-2.4); Potassium 4.7 mmol/L (3.5-5.1); Sodium 135 mmol/L (136-145); TSH 3.13 uIU/mL (0.36-3.74); Total Protein 7.5 g/dL (6.4-8.2)
[2023-06-20 08:59] LABS: Iron 92 ug/dL (65-175); Total Iron Binding Capacity 282 ug/dL (250-450); Transferrin Sat 33 % (20-55)
[2023-06-20 09:03] LABS: Ferritin 911 ng/mL (26-388); Folate > 20.0 ng/mL (8.6-20.0); Vitamin B12 740 pg/mL (193-986)
== END 2023-06-20 01:32 | disposition home or self-care (01) ==
PROVIDERS: PCP Family Medicine; Visit Provider Nurse Practitioner Family
DX: D64.9 Anemia, unspecified (principal); C34.11 Malignant neoplasm of upper lobe, right bronchus or lung; Z79.899 Other long term (current) drug therapy
CPT/HCPCS: 36415; 80053; 81003; 81015; 82607; 82728; 82746; 83540; 83550; 83735; 84439; 84443; 85025

== ENCOUNTER 2023-07-11 03:47 | Outpatient (CLI) | payer MEDICARE, BC, SELFPAY ==
[2023-07-11 08:36] LABS: Abs Immature Grans 0.02 10^3/uL (0.0-0.06); Absolute Basophil Count 0.03 10^3/uL (0.0-0.2); Absolute Eosinophil Count 0.25 10^3/uL (0.0-0.7); Absolute Lymphocyte Count 1.53 10^3/uL (1.2-3.4); Absolute Monocyte Count 0.53 10^3/uL (0.1-0.8); Absolute Neutrophil Count 2.86 10^3/uL (1.2-6.7); Basophils % 0.6; Eosinophils % 4.8; HCT 31.7 % (40.0-50.0); HGB 10.4 g/dL (13.5-17.5); Immature Grans % 0.4; Lymphocytes % 29.3; MCH 33.9 pg (27.0-33.0); MCHC 32.8 % (32.0-36.0); MCV 103 fL (80-95); MPV 8.3 fL (8.0-11.0); Monocytes % 10.2; Neutrophils % 54.7; Platelet Count 249 10^3/uL (130-400); RBC 3.07 10^6/uL (4.36-5.78); RDW 12.1 % (11.8-14.1); RDW-SD 45.6 fL; WBC 5.22 10^3/uL (4.4-10.8)
[2023-07-11 08:43] LABS: Bilirubin Negative (Negative); Blood Trace-intact (Negative); Clarity Clear (Clear); Glucose Negative (Negative); Ketones Negative (Negative); Leukocyte Esterase Negative (Negative); Nitrite Negative (Negative); Urobilinogen 0.2 mg/dL (Up to 0.2); pH 5.5 (5-8)
[2023-07-11 08:53] LABS: Bacteria Rare HPF (Negative); C & S Indicated? No; Casts 5-10 Hyaline LPF (Negative); Crystals Negative HPF (Negative); Epithelial Cells Few HPF (Negative); Mucus Trace (Negative); RBC 0-2 HPF (0-2); WBC Negative HPF (0-5)
[2023-07-11 09:01] LABS: ALT 31 U/L (16-63); AST 27 U/L (15-37); Albumin 2.8 g/dL (3.4-5.0); Alkaline Phosphatase 131 U/L (46-116); Anion Gap 9.2 mmol/L (3-11); BUN 15 mg/dL (7-18); Bilirubin, Total 0.6 mg/dL (0.2-1.0); CO2 25.8 mmol/L (21.0-32.0); CREATININE 1.3 mg/dL (0.70-1.30); Calcium 8.3 mg/dL (8.5-10.1); Chloride 100 mmol/L (98-107); Estimated GFR 58.37 (mL/min/1.73m2); Glucose 128 mg/dL (74-106); Magnesium 2.1 mg/dL (1.8-2.4); Potassium 4.8 mmol/L (3.5-5.1); Sodium 135 mmol/L (136-145); TSH 3.44 uIU/Ml (0.36-3.74); Total Protein 7.1 g/dL (6.4-8.2)
== END 2023-07-11 03:48 | disposition home or self-care (01) ==
LOC: LBO 03:48
PROVIDERS: PCP Family Medicine; Visit Provider Internal Medicine Medical Oncology
DX: Z79.899 Other long term (current) drug therapy (principal); C34.11 Malignant neoplasm of upper lobe, right bronchus or lung
CPT/HCPCS: 36415; 80053; 81003; 81015; 83735; 84439; 84443; 85025

== ENCOUNTER 2023-08-01 05:04 | Outpatient (CLI) | payer MEDICARE, BC, SELFPAY ==
[2023-08-01 08:29] LABS: Abs Immature Grans 0.02 10^3/uL (0.0-0.06); Absolute Basophil Count 0.02 10^3/uL (0.0-0.2); Absolute Eosinophil Count 0.12 10^3/uL (0.0-0.7); Absolute Lymphocyte Count 1.76 10^3/uL (1.2-3.4); Absolute Monocyte Count 0.68 10^3/uL (0.1-0.8); Absolute Neutrophil Count 2.81 10^3/uL (1.2-6.7); Basophils % 0.4; Eosinophils % 2.2; HCT 35.3 % (40.0-50.0); HGB 11.4 g/dL (13.5-17.5); Immature Grans % 0.4; Lymphocytes % 32.5; MCHC 32.3 % (32.0-36.0); MCV 102 fL (80-95); MPV 8.7 fL (8.0-11.0); Monocytes % 12.6; Neutrophils % 51.9; Platelet Count 222 10^3/uL (130-400); RBC 3.45 10^6/uL (4.36-5.78); RDW-SD 45.5 fL; WBC 5.41 10^3/uL (4.4-10.8)
[2023-08-01 08:31] LABS: Bilirubin Negative (Negative); Blood Trace-lysed (Negative); Clarity Clear (Clear); Glucose Negative (Negative); Ketones Negative (Negative); Leukocyte Esterase Negative (Negative); Nitrite Negative (Negative); Urobilinogen 0.2 mg/dL (Up to 0.2); pH 5.5 (5-8)
[2023-08-01 08:38] LABS: Bacteria Negative HPF (Negative); C & S Indicated? No; Casts Negative LPF (Negative); Crystals Negative HPF (Negative); Epithelial Cells Rare HPF (Negative); Mucus Negative (Negative); RBC 0-2 HPF (0-2); WBC Negative HPF (0-5)
[2023-08-01 08:54] LABS: ALT 31 U/L (16-63); AST 26 U/L (15-37); Alkaline Phosphatase 134 U/L (46-116); Anion Gap 9.2 mmol/L (3-11); BUN 19 mg/dL (7-18); Bilirubin, Total 1.3 mg/dL (0.2-1.0); CO2 26.8 mmol/L (21.0-32.0); CREATININE 1.3 mg/dL (0.70-1.30); Calcium 8.3 mg/dL (8.5-10.1); Chloride 98 mmol/L (98-107); Estimated GFR 58.37 (mL/min/1.73m2); FREE T4 1.09 ng/dL (0.76-1.46); Glucose 131 mg/dL (74-106); Magnesium 2.1 mg/dL (1.8-2.4); Potassium 4.6 mmol/L (3.5-5.1); Sodium 134 mmol/L (136-145); TSH 3.05 uIU/Ml (0.36-3.74); Total Protein 7.5 g/dL (6.4-8.2)
== END 2023-08-01 05:05 | disposition home or self-care (01) ==
LOC: LBO 05:04
PROVIDERS: PCP Family Medicine; Visit Provider Internal Medicine Medical Oncology
DX: Z79.899 Other long term (current) drug therapy (principal); C34.11 Malignant neoplasm of upper lobe, right bronchus or lung
CPT/HCPCS: 36415; 80053; 81003; 81015; 83735; 84439; 84443; 85025

== ENCOUNTER 2023-08-08 15:54 | Emergency (ER) | payer MEDICARE, BC, SELFPAY ==
[2023-08-08] VITALS (39 sets, daily range): BP systolic 147–182; BP diastolic 78–94; PULSE 77–84; RESP 16–24; O2SAT 96–100
--- NOTE | 2023-08-08 16:23 | ED.GENADUL_ITS ---
Discharge Plan Disposition Patient Disposition: Home Condition: Good Discharge Details Clinical Impression: Left upper extremity swelling Primary Care Provider: Chau Braxton ED Provider: Gama Myers Meds and Santiago Rx's Prescriptions: Continued acetaminophen [Tylenol] 325 mg capsule 325 mg PO Q6H PRN nystatin 100,000 unit/mL suspension 500,000 unit PO .q4hr PRN sildenafil 50 mg tablet 50 mg PO PRN PRN Patient Comments: Take 1 tablet by mouth once a day as needed take 1 hour prior to sexual activity. prochlorperazine maleate 10 mg tablet 10 mg PO QID PRN Patient Comments: TAKE ONE TABLET BY MOUTH EVERY SIX HOURS NEEDED FOR NAUSEA folic acid 1 mg tablet 1 mg PO DAILY Patient Comments: TAKE ONE TABLET BY MOUTH ONCE DAILY lisinopril-hydrochlorothiazide 10-12.5 mg tablet 1 tab PO DAILY fluticasone propionate 50 mcg/actuation spray,suspension 1 spray INTRANASAL DAILY Patient Comments: [place] 1 spray into both nostrils twice a day. chlorhexidine gluconate 0.12 % mouthwash 15 ml mucous membrane DAILY calcium carbonate-vitamin D2 600 mg calcium- 200 unit tablet 1 tab PO BID olanzapine [Zyprexa] 5 mg tablet 5 mg PO DAILY Discharge Instructions Additional Instructions: You were seen in the ED for increased left facial swelling and new left hand swelling. CT scan of your chest shows no obvious clot or blockages. We were unable to obtain ultrasound this evening. You have been dosed with a blood thinner called Mediakraft [place] for overnight. You will receive a call from radiology to come back tomorrow morning for ultrasound of the left upper extremity. Will have you follow-up at the Cancer [facility]. Return to the ED if you develop any type of chest pain, shortness of breath, significantly worsening pain or swelling to the arm, other concerns. Referrals: [facility] [Provider Group] HPI General Mode of arrival: ambulatory . Date/Time Provider Initiated Documentation: 08/08/23 16:08 . Limitations to Documentation: no limitations . Information obtained by: patient, RN notes reviewed and old records reviewed . HPI Narrative: Patient presents to ED, referred in by cancer center, for increased facial swelling and new left upper extremity swelling. Patient has metastatic lung cancer with primary in the right upper lobe. He has had facial swelling for. It time that they have thought was related to one of his chemo agents. It is always been asymmetric. It is always affected the left side more so than the right side. Over the last 24 hours he is developed left upper extremity swelling. He has no pain in the arm. He has no neurologic change to the arm. Denies any chest pain or shortness of breath. Denies any swelling or changes to the right upper extremity. There was concern for possible clot and patient is referred to ED for evaluation. Related Data Home Medications Medication Instructions Recorded Confirmed fluticasone propionate 50 1 spray intranasal DAILY 05/03/23 08/08/23 mcg/actuation nasal spray,suspension folic acid 1 mg tablet 1 mg PO DAILY 05/03/23 08/08/23 lisinopril 10 1 tab PO DAILY 05/03/23 08/08/23 mg-hydrochlorothiazide 12.5 mg tablet nystatin 100,000 unit/mL oral 500,000 unit PO .q4hr PRN 05/03/23 08/08/23 suspension prochlorperazine maleate 10 mg 10 mg PO QID PRN 05/03/23 08/08/23 tablet sildenafil 50 mg tablet 50 mg PO PRN PRN 05/03/23 08/08/23 acetaminophen 325 mg capsule 325 mg PO Q6H PRN 07/06/23 08/08/23 (Tylenol) calcium carb-ergocalciferol (vit 1 tab PO BID 08/08/23 08/08/23 D2) 600 mg calcium-200 unit tablet chlorhexidine gluconate 0.12 % 15 ml mucous membrane DAILY 08/08/23 08/08/23 mouthwash olanzapine 5 mg tablet (Zyprexa) 5 mg PO DAILY 08/08/23 08/08/23 Allergies Allergy/AdvReac Type Severity Reaction Status Date / Time No Known Allergies Allergy Unverified 08/08/23 16:07 General Stated Complaint: GenMedical RONAN: 3 Review of Systems Narrative: Per HPI Exam Narrative Exam Narrative: Const: WDWN elderly male in NAD. VS per triage. HEENT: NC/AT. Obvious left facial edema/swelling. Eyes: Normal conjunctiva and sclera. Neck: Supple. Trachea midline. Lungs: Normal respiratory effort. Lungs are clear. Cor: RRR without murmur. Good radial pulses. Neuro: A+O x 3. Normal speech, mentation, gait. Cranial nerves II - XII grossly intact. No gross motor or sensory deficit. Ext: No C/C. Very mild LUE distal edema. Skin: Warm and dry without rash. Course Vital Signs Vital signs: Vital Signs Pulse 81 08/08/23 16:06 Respiratory Rate 20 08/08/23 16:06 Blood Pressure 159/89 H 08/08/23 16:06 Pulse Oximetry 98 08/08/23 16:06 Pulse 81 08/08/23 16:06 Respiratory Rate 20 08/08/23 16:06 Blood Pressure 159/89 H 08/08/23 16:06 Blood Pressure Position Sitting 08/08/23 16:06 Pulse Oximetry 98 08/08/23 16:06 Oxygen Delivery Method Room Air 08/08/23 16:06 Oxygen Flow Rate 0 08/08/23 16:06 Pain Level 0 08/08/23 16:06 Medical Decision Making Patient referred into ED by cancer center for evaluation of worsening left facial swelling and new left upper extremity swelling. Patient has primary lung cancer with metastasis. Primary location is right upper lung. It has been felt that the facial swelling was related to one of the medications he is receiving to treat the cancer. However, with left upper extremity swelling concern for blood clot and patient sent to ED. Would expect SVT syndrome to cause more right sided swelling but will need to rule out central clot given location of his known primary lesion. Should also evaluate for possible peripheral clot in the left upper extremity. IV established in order to obtain CT of the chest. Ultrasound has left for the day so this may need to wait until tomorrow. Laboratory studies last week looked fine. Will repeat CBC and BMP today. Patient's hemoglobin remained stable. Platelet count is normal. BMP remains unchanged except his bicarb is a little high today. CT of the chest discussed with radiology directly. There is no obvious evidence of clot or SVC syndrome. There is a little attenuation of the proximal left brachiocephalic vein by surrounding soft tissue at the level of the aortic arch. Called and discussed with [facility] heme-onc coverage, Dr. Winston. Discussed with patient. Will give single dose of Lovenox overnight and obtain outpatient ultrasound hopefully first thing in the morning. I filled out the order. Will have the results sent directly to the Cancer Center tomorrow when read. Patient will contact providers there for follow-up. Return precautions provided. Medical Records Medical records reviewed: Yes I reviewed the patient's medical records. Lab Data Lab results reviewed: Yes I reviewed the patient's lab results. Quality:SDOH Health Related Social Needs: No Data to Display PFSH All Active Problems (Updated 08/08/23 @ 20:38 by Gama Myers MD) Left upper extremity swelling (Acute) Mastoiditis (Acute) Occipital mass (Acute) Non-small cell lung cancer (Acute) Otalgia, left ear (Acute) COVID (Acute) Medical History HTN (hypertension) Metastatic lung cancer (metastasis from lung to other site) Social History Smoking/Tobacco Use Status: Former Tobacco Use Smoking risk assessment performed?: Yes Alcohol Intake: current Alcohol Intake frequency: holidays/special occasions only Alcohol type: beer Substance use type: does not use Housing: house Do you feel safe at home: Yes Do you feel safe in your relationship?: Yes
--- NOTE | 2023-08-08 16:30 | DI.CT_ITS ---
Exam(s) CT CHEST W EXAM: CT CHEST W CLINICAL HISTORY: Face/LUE swelling; hx of lung CA TECHNIQUE: Imaging Protocol: Axial computed tomography images with coronal and sagittal reformatted images were created and reviewed CONTRAST MATERIAL: Intravenous: Omnipaque 350 Contrast volume:structured data ml. COMPARISON: CR XR PORTABLE CHEST AP from 05/03/[address] CHEST PE CTA from 05/03/2023 FINDINGS: Exam mildly limited by motion. Pulmonary parenchyma: No consolidation. Stable size and appearance of right anterior upper lobe mass, adjacent to the hilum. Significant right upper lobe atelectasis again noted. The bronchi are oblit erated. Multiple smaller nodules are also noted in the right upper lobe. Tracheobronchial tree: No bronchiectasis or mucous plugging. Mediastinum and Vivi: Stable right paratracheal and pretracheal adenopathy. Soft tissue density noted around the the vessels superior to the aortic arch. This appears unchanged from the prior exam. The contrast bolus is suboptimal a and vessels are not well evaluated. The subclavian artery appears dunn nt. The adjacent brachiocephalic vein is not well visualized but appears attenuated by surrounding so ft tissue in the left superior mediastinum. Pleura: Small left pleural effusion. No pneumothorax. Heart: The heart is not dilated. No coronary artery calcifications are seen. Aorta: Thoracic aorta non-dilated. Mild atherosclerotic changes. Pulmonary arteries: Attenuation of the right upper lobe pulmonary arteries. Some compression of the main pulmonary artery. Contrast bolus timing suboptimal to exclude glued pulmonary emboli. No gross central emboli. The superior vena cava also appears compressed. Findings appear more severe when c ompared with the prior exam. Upper abdomen: No acute findings.. Large quantity of stool. Left adrenal metastasis. Renal cysts. Bones: Degenerative changes in the spine. Soft tissues: Mild bilateral gynecomastia. IMPRESSION: Stable size of right upper lobe mass. There is mild compression of the right main pulmonary artery. There is attenuation of the SVC which appears more prominent when compared with the prior exam. No significant increase in adenopathy is visible. Attenuation of the proximal left brachiocephalic vein by surrounding soft tissue above the level of t he aortic arch, in the left superior mediastinum. This is new compared with the prior exam. Findings called to Dr. Myers of the emergency department. RADIATION DOSE DELIVERED: Total DLP DATA REPOSITORY: All CT scans at this facility are submitted to the National Radiology Data Registry (NRDR) Dose Index Registry (DIR) with the [employer] (ACR). RADIATION OPTIMIZATION: All CT scans at this facility use at least one of these dose optimization te chniques: automated exposure control; mA and/or kV adjustment per patient size (includes targeted exa ms where dose is matched to clinical indication); or iterative reconstruction.
[2023-08-08 17:18] LABS: HCT 33.5 % (40.0-50.0); HGB 10.7 g/dL (13.5-17.5); MCH 32.6 pg (27.0-33.0); MCHC 31.9 % (32.0-36.0); MCV 102 fL (80-95); MPV 8.7 fL (8.0-11.0); Platelet Count 217 10^3/uL (130-400); RBC 3.28 10^6/uL (4.36-5.78); RDW 11.9 % (11.8-14.1); RDW-SD 45.1 fL; WBC 5.87 10^3/uL (4.4-10.8)
[2023-08-08 17:26] LABS: Anion Gap 5.6 mmol/L (3-11); BUN 21 mg/dL (7-18); CO2 32.4 mmol/L (21.0-32.0); CREATININE 1.3 mg/dL (0.70-1.30); Calcium 9.4 mg/dL (8.5-10.1); Chloride 97 mmol/L (98-107); Estimated GFR 58.37 (mL/min/1.73m2); Glucose 111 mg/dL (74-106); Potassium 4.8 mmol/L (3.5-5.1); Sodium 135 mmol/L (136-145)
[2023-08-08] MEDS: Normal Saline - Diluent 50 ML VIAL IJ (17:54)
[2023-08-08] MEDS: Omnipaque 350 MG/ML 100 ML BTL IJ (17:55)
[2023-08-08] MEDS: Enoxaparin 80 MG/0.8 ML SYR 70 MG SC (20:41)
--- NOTE | 2023-08-08 20:53 | NUR.NOTE ---
[facility] ultrasound requisition faxed to DI for appt 08/09/23. Patient advised to call DI scheduling early am. Patient will f/u with [facility].Nursing Note:
== END 2023-08-08 20:48 | disposition home or self-care (01) ==
PROVIDERS: Emergency Provider Emergency Medicine; PCP Family Medicine
DX: R22.0 Localized swelling, mass and lump, head (principal); R22.32 Localized swelling, mass and lump, left upper limb; C34.11 Malignant neoplasm of upper lobe, right bronchus or lung; C79.89 Secondary malignant neoplasm of other specified sites; I10 Essential (primary) hypertension; Z87.891 Personal history of nicotine dependence
CPT/HCPCS: 36415; 80048; 85027; 96372; 99285; 71260; 99284; J1650; J3490

== ENCOUNTER → 2023-08-09 08:40 | Outpatient (CLI) | payer MEDICARE, BC, SELFPAY ==
--- NOTE | 2023-08-09 | DI.US_ITS ---
Exam(s) US UPPER EXTREMITY VENOUS LT EXAM: US UPPER EXTREMITY VENOUS LT CLINICAL HISTORY: LEFT UPPER EXTREMITY SWELLING, R22.32. TECHNIQUE: Ultrasound examination of the left upper extremity venous system(s) is performed using gr ayscale, color-flow, and spectral Doppler analysis. COMPARISON: No exams were available for comparison FINDINGS: The left internal jugular, axillary, subclavian, cephalic, basilic, brachial, median cubital, radial, and ulnar veins are patent without evidence of thrombosis. IMPRESSION: No evidence of a left upper extremity DVT. DATA REPOSITORY:
== END ==
PROVIDERS: PCP Family Medicine; Visit Provider Emergency Medicine
DX: R22.32 Localized swelling, mass and lump, left upper limb (principal)
CPT/HCPCS: 93971

== ENCOUNTER 2023-08-20 05:07 | Outpatient (CLI) | payer MEDICARE, BC, SELFPAY ==
[2023-08-20 11:40] LABS: Abs Immature Grans 0.02 10^3/uL (0.0-0.06); Absolute Basophil Count 0.02 10^3/uL (0.0-0.2); Absolute Lymphocyte Count 1.27 10^3/uL (1.2-3.4); Absolute Monocyte Count 0.69 10^3/uL (0.1-0.8); Absolute Neutrophil Count 3.32 10^3/uL (1.2-6.7); Basophils % 0.4; Eosinophils % 1.8; HCT 32.5 % (40.0-50.0); HGB 10.7 g/dL (13.5-17.5); Immature Grans % 0.4; Lymphocytes % 23.4; MCH 32.4 pg (27.0-33.0); MCHC 32.9 % (32.0-36.0); MCV 99 fL (80-95); MPV 8.1 fL (8.0-11.0); Monocytes % 12.7; Neutrophils % 61.3; Platelet Count 274 10^3/uL (130-400); RDW 11.9 % (11.8-14.1); RDW-SD 43.2 fL; WBC 5.42 10^3/uL (4.4-10.8)
[2023-08-20 11:42] LABS: Bilirubin Negative (Negative); Blood Trace-intact (Negative); Clarity Clear (Clear); Glucose Negative (Negative); Ketones Negative (Negative); Leukocyte Esterase Negative (Negative); Nitrite Negative (Negative); Urobilinogen 0.2 mg/dL (Up to 0.2); pH 5.5 (5-8)
[2023-08-20 12:02] LABS: Bacteria Negative HPF (Negative); Crystals Negative HPF (Negative); Epithelial Cells Rare HPF (Negative); Mucus Trace (Negative); RBC 0-2 HPF (0-2); WBC 0-2 HPF (0-5)
[2023-08-20 12:03] LABS: C & S Indicated? No; Casts 20-50 Hyaline LPF (Negative)
[2023-08-20 12:07] LABS: ALT 53 U/L (16-63); AST 37 U/L (15-37); Albumin 2.6 g/dL (3.4-5.0); Alkaline Phosphatase 312 U/L (46-116); Anion Gap 6.6 mmol/L (3-11); BUN 20 mg/dL (7-18); Bilirubin, Total 0.7 mg/dL (0.2-1.0); CO2 29.4 mmol/L (21.0-32.0); CREATININE 1.3 mg/dL (0.70-1.30); Calcium 8.6 mg/dL (8.5-10.1); Chloride 89 mmol/L (98-107); Estimated GFR 58.37 (mL/min/1.73m2); FREE T4 1.17 ng/dL (0.76-1.46); Glucose 137 mg/dL (74-106); Potassium 5.1 mmol/L (3.5-5.1); Sodium 125 mmol/L (136-145); TSH 3.15 uIU/Ml (0.36-3.74); Total Protein 6.9 g/dL (6.4-8.2)
== END 2023-08-20 05:08 | disposition home or self-care (01) ==
LOC: LBO 05:07
PROVIDERS: Nurse Practitioner Family; PCP Family Medicine; Visit Provider Internal Medicine Medical Oncology
DX: Z79.899 Other long term (current) drug therapy (principal); C34.11 Malignant neoplasm of upper lobe, right bronchus or lung
CPT/HCPCS: 36415; 80053; 81003; 81015; 83735; 84439; 84443; 85025

== ENCOUNTER 2023-08-23 15:17 | Outpatient (REF) | payer MEDICARE, BC, SELFPAY ==
[2023-08-23 21:20] LABS: Calculated LDL 93 mg/dL (<100); Cholesterol 159 mg/dL (<200); HDL Cholesterol 55 mg/dL (40-60); Triglyceride 59 mg/dL (<150)
== END 2023-08-23 15:18 | disposition home or self-care (01) ==
LOC: NCHCN 15:17
PROVIDERS: PCP Family Medicine; Visit Provider Family Medicine
DX: E78.5 Hyperlipidemia, unspecified (principal)
CPT/HCPCS: 80061

== ENCOUNTER 2023-09-07 12:30 | Emergency (ER) | payer MEDICARE, BC, SELFPAY ==
[2023-09-07] VITALS (65 sets, daily range): BP systolic 103–143; BP diastolic 54–72; PULSE 75–91; RESP 0–23; TEMP 36.3–37.2; O2SAT 75–100
--- NOTE | 2023-09-07 12:45 | DI.US_ITS ---
Exam(s) US UPPER EXTREMITY VENOUS RT EXAM: US UPPER EXTREMITY VENOUS RT CLINICAL HISTORY: active CA, R UE swelling. TECHNIQUE: Ultrasound examination of the right upper extremity venous system(s) is performed using g rayscale, color-flow, and spectral Doppler analysis. COMPARISON: No exams were available for comparison FINDINGS: The right internal jugular, axillary, subclavian, cephalic, basilic, brachial, radial, and ulnar vein s are patent without evidence of thrombosis. There is thrombus within the radial vein in the forearm . IMPRESSION: Thrombus within the radial vein in the forearm. DATA REPOSITORY:
--- NOTE | 2023-09-07 12:45 | W.ED.GENAD ---
Discharge Plan Discharge Details Chief Complaint: [facility] Primary Care Provider: Chau Braxton ED Provider: Topher Garcia Home Meds and New Rx's Prescriptions: No Action acetaminophen [Tylenol] 325 mg capsule 325 mg PO Q6H PRN nystatin 100,000 unit/mL suspension 500,000 unit PO .q4hr PRN sildenafil 50 mg tablet 50 mg PO PRN PRN Patient Comments: Take 1 tablet by mouth once a day as needed take 1 hour prior to sexual activity. prochlorperazine maleate 10 mg tablet 10 mg PO QID PRN Patient Comments: TAKE ONE TABLET BY MOUTH EVERY SIX HOURS NEEDED FOR NAUSEA folic acid 1 mg tablet 1 mg PO DAILY Patient Comments: TAKE ONE TABLET BY MOUTH ONCE DAILY lisinopril-hydrochlorothiazide 10-12.5 mg tablet 1 tab PO DAILY fluticasone propionate 50 mcg/actuation spray,suspension 1 spray INTRANASAL DAILY Patient Comments: [place] 1 spray into both nostrils twice a day. chlorhexidine gluconate 0.12 % mouthwash 15 ml mucous membrane DAILY calcium carbonate-vitamin D2 600 mg calcium- 200 unit tablet 1 tab PO BID olanzapine [Zyprexa] 5 mg tablet 5 mg PO DAILY HPI General Date/Time Provider Initiated Documentation: 09/07/23 12:39. HPI Narrative: 72 year-old male presents to ED today by POV/ambulating with a chief complaint of known L ?brachial clot at [facility] [facility] last week- in the setting of stage IV Lung CA- with recent discontinuation of Eliquis this week for dental procedure, now having R arm swelling, nausea/vomiting, and worsening dysphagia- with onset since last night. Quality described as generalized dysphagia, R arm swelling without pain, generalized weakness, vomiting last night and this afternoon with brief remission this morning due to Zofran x2, no radiation to chest pain, syncope, palpitations, hematemesis, lack of urinary output, visual changes, confusion, fever. Severity is described as moderate. Palliating factors include Zofran x2 this morning with relief of vomiting. Provoking factors include nothing specific. Patient not anticoagulated. Related Data Home Medications Medication Instructions Recorded Confirmed fluticasone propionate 50 1 spray intranasal DAILY 05/03/23 08/08/23 mcg/actuation nasal spray,suspension folic acid 1 mg tablet 1 mg PO DAILY 05/03/23 08/08/23 lisinopril 10 1 tab PO DAILY 05/03/23 08/08/23 mg-hydrochlorothiazide 12.5 mg tablet nystatin 100,000 unit/mL oral 500,000 unit PO .q4hr PRN 05/03/23 08/08/23 suspension prochlorperazine maleate 10 mg 10 mg PO QID PRN 05/03/23 08/08/23 tablet sildenafil 50 mg tablet 50 mg PO PRN PRN 05/03/23 08/08/23 acetaminophen 325 mg capsule 325 mg PO Q6H PRN 07/06/23 08/08/23 (Tylenol) calcium carb-ergocalciferol (vit 1 tab PO BID 08/08/23 08/08/23 D2) 600 mg calcium-200 unit tablet chlorhexidine gluconate 0.12 % 15 ml mucous membrane DAILY 08/08/23 08/08/23 mouthwash olanzapine 5 mg tablet (Zyprexa) 5 mg PO DAILY 08/08/23 08/08/23 Allergies Allergy/AdvReac Type Severity Reaction Status Date / Time No Known Allergies Allergy Unverified 08/08/23 16:07 General Stated Complaint: GenMedical RONAN: 3 Review of Systems All systems reviewed & are unremarkable except as noted in HPI and below Exam Narrative Exam Narrative: GENERAL APPEARANCE: Well-nourished, non-toxic, awake and alert, atraumatic, no acute distress. SKIN: Warm, pink, dry, intact, without rashes/lesions/ulcerations. HEAD: Normocephalic, atraumatic, normal hair distribution for gender/age. EYES: Pupils PERRLA, EOMs intact without nystagmus, normal conjunctiva, no exudates on lids/lashes. ENT: Nares patent, no circumoral cyanosis, no facial swelling, hoarse voice, no trismus NECK: Supple, trachea midline, painless cervical ROM, no overt unilateral swelling, is managing secretions LUNGS/CHEST: Lungs CTA bilaterally- diffusely adventitious, diminished at L base, no crackles, no wheezing, non-labored respirations, normal A/P diameter, symmetrical expansion, no chest wall deformity HEART (CV/PV): Regular rate and rhythm without murmur, no peripheral edema, no JVD, no overt gross swelling of either upper extremity, no focal nodular swelling is consistent with superficial thrombophlebitis, no tenderness in either upper extremity, bilateral radial pulses 2+ ABDOMEN: Soft, non-distended, no guarding, no tenderness. MSK: Normal ROM, no swelling/deformity to bilateral UEs or LEs, moving all extremities without weakness, no cyanosis, spine midline without tenderness, normal curvature. NEURO: Mental Status AAOx4 - alert to person, place, time, events No facial droop, no forehead involvement. Motor: No focal weakness - strength 5/5 in bilateral UEs and LEs, proximal and distal, symmetric. Sensory: sensation intact to light touch globally. Gait normal: patient ambulated without ataxia into ED room. PSYCH: euthymic, cooperative, pleasant, appropriate speech Course Vital Signs Vital signs: Vital Signs Temperature 36.3 C L 09/07/23 12:35 Pulse 83 09/07/23 12:35 Respiratory Rate 18 09/07/23 12:35 Blood Pressure 143/71 H 09/07/23 12:35 Pulse Oximetry 100 09/07/23 12:35 Temperature 36.3 C L 09/07/23 12:35 Temperature Source Tympanic 09/07/23 12:35 Pulse 83 09/07/23 12:35 Respiratory Rate 18 09/07/23 12:35 Blood Pressure 143/71 H 09/07/23 12:35 Blood Pressure Position Sitting 09/07/23 12:35 Pulse Oximetry 100 09/07/23 12:35 Oxygen Delivery Method Room Air 09/07/23 12:35 Oxygen Flow Rate 0 09/07/23 12:35 Pain Level 0 09/07/23 12:35 Medical Decision Making This dictation utilizes [id number] dictation software and may contain unedited grammatical errors. 72 y/o M presents to ED today with a chief complaint of known blood clot somewhere in L brachial/UE vasculature from [facility] [facility] last week- active Stage IV lung CA, recent discontinuation of Eliquis briefly for a dental surgery, restarted today. Patient is having dysphagia that his dental team believes is unrelated to his recent dental surgery. He and his spoke with them about now having R arm swelling and they encouraged him to get a ruleout for R UE DVT. Patient has also had nausea and vomiting - episodic last night, but responded well to 2 tablets of Zofran this morning, with return of nausea and vomiting this afternoon. Patient has had chronic nausea since starting immunotherapy, has been trying olanzapine in PMs for nausea. Patients' medical history: Hypertension, metastatic lung cancer, known DVT, history of occipital mass and mastoiditis. Family and social history: Lives at home with his . Pertinent exam findings / vital signs include no gross unilateral arm swelling or skin changes, no tenderness to palpation of either upper extremity, grossly adventitious lung sounds without work of breathing or respiratory distress, benign cardiac exam, neuro intact, benign abdomen, neurovascularly intact in bilateral upper extremities. Differential / pathologies of concern include Mets/throat CA, DVT, Superficial thrombophlebitis, Nausea & Vomiting. Diagnostic studies of: -BMP, CBC, liver panel, lipase, lactate, magnesium, BNP, procalcitonin, CRP/ESR, blood cultures, CT neck with contrast, US R UE DVT Study. -CBC shows chronic anemia -BMP shows hyponatremia of 130, mild hypochloremia elevated BUN with elevated creatinine of 1.7 with a baseline of 1.3 -BNP within normal limits -CRP significantly elevated at 16, ESR elevated at 38 -Lactate within normal limits 1.0, procalcitonin negative- do not suspect sepsis -Lipase within normal limits -Elevated bilirubin at 1.1 with mildly elevated conjugated bilirubin, significantly elevated alk phos at 523-significant acute rise since early July -magnesium WNL -US R UE shows thrombus in the radial vein of forearm, patient is on Eliquis restarted today. -CT Neck shows new left sided neck mass with some fluid collection- sending images to [facility] [facility] for likely Oncology consult/ENT -US ABD [facility] shows no acute abnormality Interventions of: -4mg IV Zofran. ED Course/Assessment/Plan: 72-year-old male patient with stage IV lung cancer and known clot subclavian left upper extremity presents after dental procedure where he discontinued his Eliquis for 5 days, restarted it today. He states that he is having right arm swelling without significant pain, nausea and vomiting beyond his baseline last night that resolved with 2 Zofran this morning then returned this afternoon and difficulty swallowing. Due to elevated bilirubin and mild elevation of conjugated bilirubin I did order an ultrasound of the abdomen, due to his difficulty swallowing her CT of the neck, as ultrasound of the right upper extremity shows a superficial clot in the radial vein of the forearm and he did restart Eliquis today. CT Neck shows supraglottic possible mass with fluid in retropharyngeal space- sent images to [facility] [facility], consulting ENT. Patient has not received decadron or antibiotics yet. Signed out to Shi Obrien NP with consult pending. Findings not consistent with DVT of R UE, Intractable nausea/vomiting, trismus. Disposition of Superficial Thrombophlebitis, Nausea and Vomiting, Neck Mass. Patient verbalized understanding of the plan and return to ED criteria and engaged in shared decision making. Medical Records Medical records reviewed: Yes I reviewed the patient's medical records. Imaging Data Radiologic Study: Attestation: I personally reviewed and interpreted this imaging study as follows: Imaging: Ultrasound Radiologist's impression: EXAM: US UPPER EXTREMITY VENOUS RT CLINICAL HISTORY: active CA, R UE swelling. TECHNIQUE: Ultrasound examination of the right upper extremity venous system(s) is performed using grayscale, color-flow, and spectral Doppler analysis. COMPARISON: No exams were available for comparison FINDINGS: The right internal jugular, axillary, subclavian, cephalic, basilic, brachial, radial, and ulnar veins are patent without evidence of thrombosis. There is thrombus within the radial vein in the forearm. IMPRESSION: Thrombus within the radial vein in the forearm. Radiologic Study #2: Attestation: I personally reviewed and interpreted this imaging study as follows: Imaging: CT Scan Radiologist's impression: EXAM: CT NECK W CLINICAL HISTORY: dysphagia, known lung CA. TECHNIQUE: Imaging Protocol: Axial computed tomography images with coronal and sagittal reformatted images were created and reviewed CONTRAST MATERIAL: Intravenous: Omnipaque 350 Contrast volume:100 ml contrast COMPARISON: CT,PT NM PET CT STANDARD SKULL BASE TO MID-THIGH from 11/28/[address] CHEST W from 08/08/2023 US US ABDOMEN LIMITED from 09/07/2023 FINDINGS: Parotids: Normal. Submandibular glands: Normal. Thyroid gland: Normal. Lymph nodes: Matted appearing adenopathy in the left supraclavicular region. Other smaller lymph node seen more superiorly on the left. Soft tissues: The floor the mouth is u partially obscured by artifact from dental work.. The tonsils and adenoids are unremarkable. The epiglottis and vocal cords are within normal limits. In the left supra glottic region, there is asymmetric soft tissue fullness measuring approximately 5 by 1.6 by 1.5 cm. This causes deviation of the airway and some narrowing. There is also some fluid in the retropharyngeal space.. Lungs: Mass anterior right upper lobe. Multiple additional suspicious appearing opacities in the right upper lobe. There is narrowing of the superior vena cava secondary to the right upper lobe mass which is which encroaches into the mediastinum. Present on prior examination. Left pleural effusion. Bones: Degenerative changes of the cervical spine. Visualized portions of the brain and orbits: Unremarkable. Sinuses and mastoids: Mucosal thickening in the visualized sinuses. IMPRESSION: Left-sided supraglottic collection as well as a small amount of fluid in the retropharyngeal space. Findings are suspicious for abscess or fluid collection however the patient's history, a mass is also a consideration. Findings called to Topher Garcia, emergency department provider. Radiologic Study #3: Attestation: I personally reviewed and interpreted this imaging study as follows: Imaging: Ultrasound Radiologist's impression: EXAM: US ABDOMEN LIMITED CLINICAL HISTORY: RUQ study- elev bili/conj bili TECHNIQUE: Ultrasound abdomen performed using standard protocol. COMPARISON: CT CT CHEST W from 08/08/2023 FINDINGS: LIVER: Normal size. Normalechogenicity. No focal liver lesions are seen.. GALLBLADDER: No evidence of cholelithiasis. No evidence of wall thickening. No pericholecystic fluid identified. LIU'S SIGN: Negative. BILIARY SYSTEM: No intrahepatic or extrahepatic biliary ductal dilation. RIGHT KIDNEY: Normal size. No evidence of renal calculi. No evidence of hydronephrosis. No suspicious renal mass. Right renal cyst noted lateral lower pole. PANCREAS: Norm obscured by bowel gas. ABDOMINAL AORTA AND IVC: Visualized portions normal caliber. ASCITES: None seen. IMPRESSION: No acute abnormality.. Lab Data Lab results reviewed: Yes I reviewed the patient's lab results. Labs: 09/07/23 13:05 Blood Blood Culture - Pending 09/07/23 12:52 Blood Blood Culture - Pending Laboratory Tests Range/Units 09/07/23 13:05 WBC (4.4-10.8) 10^3/uL 5.72 RBC (4.36-5.78) 10^6/uL 3.07 L Hgb (13.5-17.5) g/dL 10.1 L Hct (40.0-50.0) % 30.9 L MCV (80-95) fL 101 H MCH (27.0-33.0) pg 32.9 MCHC (32.0-36.0) % 32.7 RDW (11.8-14.1) % 13.1 Plt Count (130-400) 10^3/uL 224 MPV (8.0-11.0) fL 8.6 Immature Gran % % 0.3 Neutrophils % % 67.5 Lymphocytes % % 15.6 Monocytes % % 13.5 Eosinophils % % 2.8 Basophils % % 0.3 Nucleated RBC % (0.0-0.3) % 0.0 Absolute Neutrophils (1.2-6.7) 10^3/uL 3.86 Absolute Lymphocytes (1.2-3.4) 10^3/uL 0.89 L Absolute Monocytes (0.1-0.8) 10^3/uL 0.77 Absolute Eosinophils (0.0-0.7) 10^3/uL 0.16 Absolute Basophils (0.0-0.2) 10^3/uL 0.02 ESR (0-20) mm/hr 38 H VBG Lactate (0.6-1.4) mmol/L 1.0 Sodium (136-145) mmol/L 130 L Potassium (3.5-5.1) mmol/L 4.7 Chloride (98-107) mmol/L 95 L Carbon Dioxide (21.0-32.0) mmol/L 27.1 Anion Gap (3-11) mmol/L 7.9 BUN (7-18) mg/dL 29 H Creatinine (0.70-1.30) mg/dL 1.7 H Est GFR (CKD-EPI 2020) (mL/min/1.73m2) 42.30 Glucose (74-106) mg/dL 102 Calcium (8.5-10.1) mg/dL 7.4 L Magnesium (1.8-2.4) mg/dL 2.1 Total Bilirubin (0.2-1.0) mg/dL 1.1 H Conjugated Bilirubin (0.0-0.2) mg/dL 0.4 H AST (15-37) U/L 43 H ALT (16-63) U/L 64 H Alkaline Phosphatase (46-116) U/L 523 H C-Reactive Protein (<or=0.5) mg/dL 16.17 H NT-Pro-B Natriuret Pep (<300) pg/mL 290 Total Protein (6.4-8.2) g/dL 6.8 Albumin (3.4-5.0) g/dL 2.5 L Lipase (16-77) U/L 43 Procalcitonin ng/mL 0.7 Quality:SDOH Health Related Social Needs: No Data to Display PFSH All Active Problems (Updated 08/08/23 @ 20:38 by Gama Myers MD) Left upper extremity swelling (Acute) Mastoiditis (Acute) Occipital mass (Acute) Non-small cell lung cancer (Acute) Otalgia, left ear (Acute) COVID (Acute) Medical History HTN (hypertension) Metastatic lung cancer (metastasis from lung to other site) Social History Smoking/Tobacco Use Status: Former Tobacco Use Smoking risk assessment performed?: Yes Alcohol Intake: current Alcohol Intake frequency: holidays/special occasions only Alcohol type: beer Substance use type: does not use Housing: house Do you feel safe at home: Yes Do you feel safe in your relationship?: Yes Sign Out Sign Out Data: Sign Out Comment: Stage IV Lung CA Patient - aggressively treating- has known L subclavian clot- new thrombus R brachial vein- Had d/c'd his Eliquis Sunday - Sunday for dental procedure. Now having worsening difficulty swallowing & some nausea/vomiting CT Neck w contrast shows supraglottic possible mass with fluid in the retropharyngeal space- mass effect to airway. Pending [facility] ENT & possibly multi-disciplinary oncology consult, possible transfer. Last updated by Topher Garcia PA at 09/07/23 15:31
[2023-09-07 13:19] LABS: Abs Immature Grans 0.02 10^3/uL (0.0-0.06); Absolute Basophil Count 0.02 10^3/uL (0.0-0.2); Absolute Eosinophil Count 0.16 10^3/uL (0.0-0.7); Absolute Lymphocyte Count 0.89 10^3/uL (1.2-3.4); Absolute Monocyte Count 0.77 10^3/uL (0.1-0.8); Absolute Neutrophil Count 3.86 10^3/uL (1.2-6.7); Basophils % 0.3 %; Eosinophils % 2.8 %; HCT 30.9 % (40.0-50.0); HGB 10.1 g/dL (13.5-17.5); Immature Grans % 0.3 %; Lymphocytes % 15.6 %; MCH 32.9 pg (27.0-33.0); MCHC 32.7 % (32.0-36.0); MCV 101 fL (80-95); MPV 8.6 fL (8.0-11.0); Monocytes % 13.5 %; Neutrophils % 67.5 %; Platelet Count 224 10^3/uL (130-400); RBC 3.07 10^6/uL (4.36-5.78); RDW 13.1 % (11.8-14.1); RDW-SD 48.5 fL; WBC 5.72 10^3/uL (4.4-10.8)
[2023-09-07 13:21] LABS: ESR 38 mm/hr (0-20)
--- NOTE | 2023-09-07 13:45 | DI.US_ITS ---
Exam(s) US ABDOMEN LIMITED EXAM: US ABDOMEN LIMITED CLINICAL HISTORY: RUQ study- elev bili/conj bili TECHNIQUE: Ultrasound abdomen performed using standard protocol. COMPARISON: CT CT CHEST W from 08/08/2023 FINDINGS: LIVER: Normal size. Normalechogenicity. No focal liver lesions are seen.. GALLBLADDER: No evidence of cholelithiasis. No evidence of wall thickening. No pericholecystic fluid identified. LIU'S SIGN: Negative. BILIARY SYSTEM: No intrahepatic or extrahepatic biliary ductal dilation. RIGHT KIDNEY: Normal size. No evidence of renal calculi. No evidence of hydronephrosis. No suspicious renal mass. Right renal cyst noted lateral lower pole. PANCREAS: Norm obscured by bowel gas. ABDOMINAL AORTA AND IVC: Visualized portions normal caliber. ASCITES: None seen. IMPRESSION: No acute abnormality.. DATA REPOSITORY:
[2023-09-07 13:46] LABS: ALT 64 U/L (16-63); AST 43 U/L (15-37); Albumin 2.5 g/dL (3.4-5.0); Alkaline Phosphatase 523 U/L (46-116); Anion Gap 7.9 mmol/L (3-11); BUN 29 mg/dL (7-18); Bilirubin, Direct 0.4 mg/dL (0.0-0.2); Bilirubin, Total 1.1 mg/dL (0.2-1.0); C-Reactive Protein 16.17 mg/dL (<or=0.5); CO2 27.1 mmol/L (21.0-32.0); CREATININE 1.7 mg/dL (0.70-1.30); Calcium 7.4 mg/dL (8.5-10.1); Chloride 95 mmol/L (98-107); Glucose 102 mg/dL (74-106); Lipase 43 U/L (16-77); Magnesium 2.1 mg/dL (1.8-2.4); NT-proBNP 290 pg/mL (<300); Potassium 4.7 mmol/L (3.5-5.1); Sodium 130 mmol/L (136-145); Total Protein 6.8 g/dL (6.4-8.2)
[2023-09-07 13:54] LABS: Procalcitonin 0.7 ng/mL
[2023-09-07] MEDS: Normal Saline - Diluent 50 ML VIAL IJ (14:08)
[2023-09-07] MEDS: Omnipaque 350 MG/ML 500 ML BTL-Imaging package 100 ML IJ (14:09)
--- NOTE | 2023-09-07 14:18 | DI.CT_ITS ---
Exam(s) CT NECK W EXAM: CT NECK W CLINICAL HISTORY: dysphagia, known lung CA. TECHNIQUE: Imaging Protocol: Axial computed tomography images with coronal and sagittal reformatted images were created and reviewed CONTRAST MATERIAL: Intravenous: Omnipaque 350 Contrast volume:100 ml contrast COMPARISON: CT,PT NM PET CT STANDARD SKULL BASE TO MID-THIGH from 11/28/[address] CHEST W from 08/08/2023 US US ABDOMEN LIMITED from 09/07/2023 FINDINGS: Parotids: Normal. Submandibular glands: Normal. Thyroid gland: Normal. Lymph nodes: Matted appearing adenopathy in the left supraclavicular region. Other smaller lymph node seen more superiorly on the left. Soft tissues: The floor the mouth is u partially obscured by artifact from dental work.. The tonsils and adenoids are unremarkable. The epiglottis and vocal cords are within normal limits. In the left supra glottic region, there is a symmetric soft tissue fullness measuring approximately 5 by 1.6 by 1.5 cm. This causes deviation of t he airway and some narrowing. There is also some fluid in the retropharyngeal space.. Lungs: Mass anterior right upper lobe. Multiple additional suspicious appearing opacities in the rig ht upper lobe. There is narrowing of the superior vena cava secondary to the right upper lobe mass wh ich is which encroaches into the mediastinum. Present on prior examination. Left pleural effusion. Bones: Degenerative changes of the cervical spine. Visualized portions of the brain and orbits: Unremarkable. Sinuses and mastoids: Mucosal thickening in the visualized sinuses. IMPRESSION: Left-sided supraglottic collection as well as a small amount of fluid in the retropharyngeal space. F indings are suspicious for abscess or fluid collection however the patient's history, a mass is also a consideration. Findings called to Topher Garcia, emergency department provider. RADIATION DOSE DELIVERED: 525.16mGy.cm Total DLP DATA REPOSITORY: All CT scans at this facility are submitted to the National Radiology Data Registry (NRDR) Dose Index Registry (DIR) with the [employer] (A[employer]). RADIATION OPTIMIZATION: All CT scans at this facility use at least one of these dose optimization te chniques: automated exposure control; mA and/or kV adjustment per patient size (includes targeted exa ms where dose is matched to clinical indication); or iterative reconstruction.
--- NOTE | 2023-09-07 15:39 | W.EDPROG ---
Date of service: 09/07/23 Time of Service: 15:40 Medical Decision Making Care assumed from provider (EMIYL Prabhakar) Please see their initial HPI, PE, and documentation. Discussed patient details and case and pending workup and disposition. Patient is hemodynamically stable, and alert and oriented. At the time of signout awaiting ENT from [facility] call back regarding imaging results. 1631: Spoke with Dr. Ren she recommends Unasyn, and Decadron and transfer for further eval and treatment, no imminent airway involvement at this time or need for intubation prior to transfer, she will call me back. 1718: Spoke with Dr. Ren again who accepts for ER to ER transfer for further eval, spoke also with ED provider Dr. Salazar will arrange for transportation. Upon entering room and discussing plan of care for transfer to [facility] ER to be seen by ENT patient states that he is refusing he does not wish to go to department since he just got out of there is at bedside they are speaking with patient's son on the phone at this time. I did discuss that he has new fluid in the back of his throat which is causing deviation of his airway and that the recommendation is for evaluation by ear nose and throat. I did give them a couple of minutes to discuss.He is now agreeable to go via EMS to [facility] ER. Pending transfer via EMS at this time. 1959: EMS here for patient transport. Remains hemodynamically stable, ambulatory to bathroom, and reports voice is less muffled then previously. This text was generated using HeadSpr[employer] dictation system, please disregard any oddities of phrase or misspellings. Medical Records Medical records reviewed: Yes I reviewed the patient's medical records. Imaging Data Radiologic Study: Imaging: CT Scan Radiologist's impression: FINDINGS: Parotids: Normal. Submandibular glands: Normal. Thyroid gland: Normal. Lymph nodes: Matted appearing adenopathy in the left supraclavicular region. Other smaller lymph node seen more superiorly on the left. Soft tissues: The floor the mouth is u partially obscured by artifact from dental work.. The tonsils and adenoids are unremarkable. The epiglottis and vocal cords are within normal limits. In the left supra glottic region, there is asymmetric soft tissue fullness measuring approximately 5 by 1.6 by 1.5 cm. This causes deviation of the airway and some narrowing. There is also some fluid in the retropharyngeal space.. Lungs: Mass anterior right upper lobe. Multiple additional suspicious appearing opacities in the right upper lobe. There is narrowing of the superior vena cava secondary to the right upper lobe mass which is which encroaches into the mediastinum. Present on prior examination. Left pleural effusion. Bones: Degenerative changes of the cervical spine. Visualized portions of the brain and orbits: Unremarkable. Sinuses and mastoids: Mucosal thickening in the visualized sinuses. IMPRESSION: Left-sided supraglottic collection as well as a small amount of fluid in the retropharyngeal space. Findings are suspicious for abscess or fluid collection however the patient's history, a mass is also a consideration. Findings called to Topher Garcia, emergency department provider. Lab Data Lab results reviewed: Yes I reviewed the patient's lab results. Labs: 09/07/23 13:05 Blood Blood Culture - Pending 09/07/23 12:52 Blood Blood Culture - Pending Laboratory Tests Range/Units 09/07/23 13:05 WBC (4.4-10.8) 10^3/uL 5.72 RBC (4.36-5.78) 10^6/uL 3.07 L Hgb (13.5-17.5) g/dL 10.1 L Hct (40.0-50.0) % 30.9 L MCV (80-95) fL 101 H MCH (27.0-33.0) pg 32.9 MCHC (32.0-36.0) % 32.7 RDW (11.8-14.1) % 13.1 Plt Count (130-400) 10^3/uL 224 MPV (8.0-11.0) fL 8.6 Immature Gran % % 0.3 Neutrophils % % 67.5 Lymphocytes % % 15.6 Monocytes % % 13.5 Eosinophils % % 2.8 Basophils % % 0.3 Nucleated RBC % (0.0-0.3) % 0.0 Absolute Neutrophils (1.2-6.7) 10^3/uL 3.86 Absolute Lymphocytes (1.2-3.4) 10^3/uL 0.89 L Absolute Monocytes (0.1-0.8) 10^3/uL 0.77 Absolute Eosinophils (0.0-0.7) 10^3/uL 0.16 Absolute Basophils (0.0-0.2) 10^3/uL 0.02 ESR (0-20) mm/hr 38 H VBG Lactate (0.6-1.4) mmol/L 1.0 Sodium (136-145) mmol/L 130 L Potassium (3.5-5.1) mmol/L 4.7 Chloride (98-107) mmol/L 95 L Carbon Dioxide (21.0-32.0) mmol/L 27.1 Anion Gap (3-11) mmol/L 7.9 BUN (7-18) mg/dL 29 H Creatinine (0.70-1.30) mg/dL 1.7 H Est GFR (CKD-EPI 2020) (mL/min/1.73m2) 42.30 Glucose (74-106) mg/dL 102 Calcium (8.5-10.1) mg/dL 7.4 L Magnesium (1.8-2.4) mg/dL 2.1 Total Bilirubin (0.2-1.0) mg/dL 1.1 H Conjugated Bilirubin (0.0-0.2) mg/dL 0.4 H AST (15-37) U/L 43 H ALT (16-63) U/L 64 H Alkaline Phosphatase (46-116) U/L 523 H C-Reactive Protein (<or=0.5) mg/dL 16.17 H NT-Pro-B Natriuret Pep (<300) pg/mL 290 Total Protein (6.4-8.2) g/dL 6.8 Albumin (3.4-5.0) g/dL 2.5 L Lipase (16-77) U/L 43 Procalcitonin ng/mL 0.7 Quality:SDOH Health Related Social Needs: No Data to Display Sign Out Sign Out Data: Sign Out Comment: Stage IV Lung CA Patient - aggressively treating- has known L subclavian clot- new thrombus R brachial vein- Had d/c'd his Eliquis Sunday - Sunday for dental procedure. Now having worsening difficulty swallowing & some nausea/vomiting CT Neck w contrast shows supraglottic possible mass with fluid in the retropharyngeal space- mass effect to airway. Pending [facility] ENT & possibly multi-disciplinary oncology consult, possible transfer. Last updated by Topher Garcia PA at 09/07/23 15:31 Discharge Plan Disposition Patient Disposition: Transfer-Acute Inpatient Care Specific Acute Inpt Facility: [facility] Condition: Serious Discharge Details Clinical Impression: Abscess, retropharyngeal, Dysphagia Primary Care Provider: Chau Braxton ED Provider: Shi Obrien Home Meds and New Rx's Prescriptions: No Action acetaminophen [Tylenol] 325 mg capsule 325 mg PO Q6H PRN folic acid 1 mg tablet 1 mg PO DAILY Patient Comments: TAKE ONE TABLET BY MOUTH ONCE DAILY lisinopril-hydrochlorothiazide 10-12.5 mg tablet 1 tab PO DAILY chlorhexidine gluconate 0.12 % mouthwash 15 ml mucous membrane DAILY calcium carbonate-vitamin D2 600 mg calcium- 200 unit tablet 1 tab PO BID olanzapine [Zyprexa] 5 mg tablet 5 mg PO DAILY ondansetron HCl 4 mg tablet 4 mg PO Q8H PRN Patient Comments: Take 1 tablet by mouth every 6 hours as needed, for nausea amoxicillin-pot clavulanate 875-125 mg tablet 1 tab PO BID Patient Comments: Take 1 tablet by mouth every 12 hours for 7 days. Eliquis DVT-PE Treat 30D Start 5 mg (74 tabs) tablets,dose pack 5 mg PO BID Patient Comments: Take 2 ( 5 mg Tablets ) twice daily for 5 days then change dose to 1 ( 5 mg tablet twice daily) ipratropium bromide 42 mcg (0.06 %) spray,non-aerosol 2 spray INTRANASAL TID PRN Patient Comments: [place] 2 sprays in each nostril 3 times a day as needed Discharge Instructions Instructions: Abscess (ED)
[2023-09-07] MEDS: AMPICILLIN/SULBACTAM 3 GM in Normal Saline 100 ML IVPB (16:45)
[2023-09-07] MEDS: Dexamethasone 10 MG/ML VIAL IVP (16:45)
== END 2023-09-07 20:19 | disposition short-term general hospital (02) ==
PROVIDERS: Physician Assistant; Emergency Provider Registered Nurse Emergency; PCP Family Medicine
DX: I82.621 Acute embolism and thrombosis of deep veins of right upper extremity (principal); E87.1 Hypo-osmolality and hyponatremia; E87.8 Other disorders of electrolyte and fluid balance, not elsewhere classified; E80.6 Other disorders of bilirubin metabolism; R93.89 Abnormal findings on diagnostic imaging of other specified body structures; I10 Essential (primary) hypertension; C34.11 Malignant neoplasm of upper lobe, right bronchus or lung; Z79.60 Long term (current) use of unspecified immunomodulators and immunosuppressants; Z87.891 Personal history of nicotine dependence; Z79.899 Other long term (current) drug therapy
CPT/HCPCS: 00123; 36415; 70491; 80048; 80076; 83690; 84145; 85652; 87040; 96365; 96375; 99285; 76705; 83605; 83735; 83880; 85025; 86140; 93971; J0295; J1100

== ENCOUNTER 2023-10-01 04:55 | Outpatient (CLI) | payer MEDICARE, BC, SELFPAY ==
[2023-10-01 10:13] LABS: Abs Immature Grans 0.09 10^3/uL (0.0-0.06); Absolute Basophil Count 0.02 10^3/uL (0.0-0.2); Absolute Eosinophil Count 0.04 10^3/uL (0.0-0.7); Absolute Lymphocyte Count 1.06 10^3/uL (1.2-3.4); Absolute Monocyte Count 0.69 10^3/uL (0.1-0.8); Absolute Neutrophil Count 4.85 10^3/uL (1.2-6.7); Basophils % 0.3 %; Eosinophils % 0.6 %; HGB 11.3 g/dL (13.5-17.5); Immature Grans % 1.3 %; Lymphocytes % 15.7 %; MCH 32.9 pg (27.0-33.0); MCHC 32.3 % (32.0-36.0); MCV 102 fL (80-95); MPV 8.2 fL (8.0-11.0); Monocytes % 10.2 %; Neutrophils % 71.9 %; Platelet Count 211 10^3/uL (130-400); RBC 3.43 10^6/uL (4.36-5.78); RDW 14.6 % (11.8-14.1); RDW-SD 55.5 fL; WBC 6.75 10^3/uL (4.4-10.8)
[2023-10-01 10:14] LABS: Bilirubin Negative (Negative); Blood Small (Negative); Clarity Clear (Clear); Glucose Negative (Negative); Ketones Negative (Negative); Leukocyte Esterase Trace (Negative); Nitrite Negative (Negative); Urobilinogen 0.2 mg/dL (Up to 0.2); pH 5.5 (5-8)
[2023-10-01 10:23] LABS: Bacteria Negative HPF (Negative); C & S Indicated? No; Casts Negative LPF (Negative); Crystals Negative HPF (Negative); Epithelial Cells Rare HPF (Negative); Mucus Negative (Negative)
[2023-10-01 10:39] LABS: ALT 36 U/L (16-63); AST 24 U/L (15-37); Albumin 2.9 g/dL (3.4-5.0); Alkaline Phosphatase 122 U/L (46-116); Anion Gap 6.1 mmol/L (3-11); BUN 35 mg/dL (7-18); Bilirubin, Total 0.7 mg/dL (0.2-1.0); CO2 26.9 mmol/L (21.0-32.0); CREATININE 1.2 mg/dL (0.70-1.30); Calcium 7.8 mg/dL (8.5-10.1); Chloride 99 mmol/L (98-107); Estimated GFR 64.25 (mL/min/1.73m2); FREE T4 1.16 ng/dL (0.76-1.46); Glucose 124 mg/dL (74-106); Magnesium 2.1 mg/dL (1.8-2.4); Potassium 4.5 mmol/L (3.5-5.1); Sodium 132 mmol/L (136-145); TSH 2.24 uIU/Ml (0.36-3.74); Total Protein 6.4 g/dL (6.4-8.2)
== END 2023-10-01 04:56 | disposition home or self-care (01) ==
LOC: LBO 04:55
PROVIDERS: PCP Family Medicine; Visit Provider Internal Medicine Medical Oncology
DX: Z79.899 Other long term (current) drug therapy (principal); C34.11 Malignant neoplasm of upper lobe, right bronchus or lung
CPT/HCPCS: 36415; 80053; 81003; 81015; 83735; 84439; 84443; 85025

== ENCOUNTER 2023-10-24 01:53 | Outpatient (CLI) | payer MEDICARE, BC, SELFPAY ==
[2023-10-24 11:01] LABS: Abs Immature Grans 0.03 10^3/uL (0.0-0.06); Absolute Basophil Count 0.01 10^3/uL (0.0-0.2); Absolute Eosinophil Count 0.02 10^3/uL (0.0-0.7); Absolute Lymphocyte Count 0.88 10^3/uL (1.2-3.4); Absolute Monocyte Count 0.74 10^3/uL (0.1-0.8); Absolute Neutrophil Count 1.75 10^3/uL (1.2-6.7); Basophils % 0.3 %; Eosinophils % 0.6 %; HCT 30.8 % (40.0-50.0); HGB 10.1 g/dL (13.5-17.5); Immature Grans % 0.9 %; Lymphocytes % 25.7 %; MCH 32.9 pg (27.0-33.0); MCHC 32.8 % (32.0-36.0); MCV 100 fL (80-95); Monocytes % 21.6 %; Neutrophils % 50.9 %; Platelet Count 200 10^3/uL (130-400); RBC 3.07 10^6/uL (4.36-5.78); RDW 14.2 % (11.8-14.1); RDW-SD 51.7 fL; WBC 3.43 10^3/uL (4.4-10.8)
[2023-10-24 11:03] LABS: Bilirubin Negative (Negative); Blood Negative (Negative); Clarity Clear (Clear); Glucose Negative (Negative); Ketones Negative (Negative); Leukocyte Esterase Trace (Negative); Nitrite Negative (Negative); Urobilinogen 0.2 mg/dL (Up to 0.2)
[2023-10-24 11:10] LABS: Bacteria Rare HPF (Negative); C & S Indicated? No; Casts 0-2 Coarse Granular LPF (Negative); Crystals Negative HPF (Negative); Epithelial Cells Rare HPF (Negative); Mucus Trace (Negative); RBC 0-2 HPF (0-2)
[2023-10-24 11:25] LABS: ALT 26 U/L (16-63); AST 32 U/L (15-37); Albumin 2.5 g/dL (3.4-5.0); Alkaline Phosphatase 128 U/L (46-116); Anion Gap 4.7 mmol/L (3-11); BUN 16 mg/dL (7-18); Bilirubin, Total 0.46 mg/dL (0.2-1.0); CO2 29.3 mmol/L (21.0-32.0); Calcium 8.3 mg/dL (8.5-10.1); Chloride 91 mmol/L (98-107); Estimated GFR 79.97 (mL/min/1.73m2); FREE T4 1.22 ng/dL (0.76-1.46); Glucose 116 mg/dL (74-106); Magnesium 1.8 mg/dL (1.8-2.4); Potassium 4.9 mmol/L (3.5-5.1); Sodium 125 mmol/L (136-145); TSH 3.19 uIU/Ml (0.36-3.74); Total Protein 6.1 g/dL (6.4-8.2)
== END 2023-10-24 01:54 | disposition home or self-care (01) ==
PROVIDERS: Internal Medicine Medical Oncology; PCP Family Medicine; Visit Provider Nurse Practitioner Family
DX: Z79.899 Other long term (current) drug therapy (principal); C34.11 Malignant neoplasm of upper lobe, right bronchus or lung
CPT/HCPCS: 36415; 80053; 81003; 81015; 83735; 84439; 84443; 85025

== ENCOUNTER 2023-11-12 03:52 | Outpatient (CLI) | payer MEDICARE, BC, SELFPAY ==
[2023-11-12 08:38] LABS: Abs Immature Grans 0.04 10^3/uL (0.0-0.06); Absolute Basophil Count 0.02 10^3/uL (0.0-0.2); Absolute Eosinophil Count 0.07 10^3/uL (0.0-0.7); Absolute Lymphocyte Count 1.34 10^3/uL (1.2-3.4); Absolute Neutrophil Count 4.16 10^3/uL (1.2-6.7); Basophils % 0.3 %; Eosinophils % 1.1 %; HCT 37.1 % (40.0-50.0); Immature Grans % 0.6 %; Lymphocytes % 21.2 %; MCH 33.1 pg (27.0-33.0); MCHC 32.3 % (32.0-36.0); MCV 102 fL (80-95); MPV 8.3 fL (8.0-11.0); Monocytes % 11.1 %; Neutrophils % 65.7 %; Platelet Count 177 10^3/uL (130-400); RBC 3.63 10^6/uL (4.36-5.78); WBC 6.33 10^3/uL (4.4-10.8)
[2023-11-12 08:49] LABS: Bilirubin Negative (Negative); Blood Negative (Negative); Clarity Clear (Clear); Glucose Negative (Negative); Ketones Negative (Negative); Leukocyte Esterase Negative (Negative); Nitrite Negative (Negative); Specific Gravity 1.015 (1.005-1.025); Urobilinogen 0.2 mg/dL (Up to 0.2); pH 5.5 (5-8)
[2023-11-12 09:04] LABS: ALT 47 U/L (16-63); AST 37 U/L (15-37); Albumin 2.7 g/dL (3.4-5.0); Alkaline Phosphatase 182 U/L (46-116); Anion Gap 7.5 mmol/L (3-11); BUN 22 mg/dL (7-18); Bilirubin, Total 0.55 mg/dL (0.2-1.0); CO2 28.5 mmol/L (21.0-32.0); CREATININE 1.1 mg/dL (0.70-1.30); Calcium 8.3 mg/dL (8.5-10.1); Chloride 97 mmol/L (98-107); Estimated GFR 71.32 (mL/min/1.73m2); FREE T4 1.37 ng/dL (0.76-1.46); Glucose 132 mg/dL (74-106); Potassium 4.1 mmol/L (3.5-5.1); Sodium 133 mmol/L (136-145); TSH 3.94 uIU/Ml (0.36-3.74); Total Protein 6.5 g/dL (6.4-8.2)
== END 2023-11-12 03:53 | disposition home or self-care (01) ==
LOC: LBO 03:52
PROVIDERS: Nurse Practitioner Family; PCP Family Medicine; Visit Provider Internal Medicine Medical Oncology
DX: Z79.899 Other long term (current) drug therapy (principal); C34.11 Malignant neoplasm of upper lobe, right bronchus or lung
CPT/HCPCS: 36415; 80053; 81003; 84439; 84443; 85025

== ENCOUNTER 2023-12-05 10:07 | Outpatient (CLI) | payer MEDICARE, BC, SELFPAY ==
[2023-12-05 09:46] LABS: Abs Immature Grans 0.06 10^3/uL (0.0-0.06); Absolute Basophil Count 0.02 10^3/uL (0.0-0.2); Absolute Eosinophil Count 0.04 10^3/uL (0.0-0.7); Absolute Lymphocyte Count 1.02 10^3/uL (1.2-3.4); Absolute Monocyte Count 0.72 10^3/uL (0.1-0.8); Absolute Neutrophil Count 3.85 10^3/uL (1.2-6.7); Basophils % 0.4 %; Eosinophils % 0.7 %; HCT 36.4 % (40.0-50.0); HGB 11.5 g/dL (13.5-17.5); Immature Grans % 1.1 %; Lymphocytes % 17.9 %; MCHC 31.6 % (32.0-36.0); MCV 105 fL (80-95); MPV 7.9 fL (8.0-11.0); Monocytes % 12.6 %; Neutrophils % 67.3 %; Platelet Count 117 10^3/uL (130-400); RBC 3.48 10^6/uL (4.36-5.78); RDW 13.7 % (11.8-14.1); WBC 5.71 10^3/uL (4.4-10.8)
[2023-12-05 09:48] LABS: Bilirubin Negative (Negative); Blood Trace-lysed (Negative); Clarity Clear (Clear); Glucose Negative (Negative); Ketones Negative (Negative); Leukocyte Esterase Negative (Negative); Nitrite Negative (Negative); Urobilinogen 0.2 mg/dL (Up to 0.2); pH 5.5 (5-8)
[2023-12-05 09:57] LABS: Bacteria Negative HPF (Negative); C & S Indicated? No; Casts 0-2 Hyaline LPF (Negative); Crystals Negative HPF (Negative); Epithelial Cells Few HPF (Negative); Mucus Moderate (Negative); RBC 0-2 HPF (0-2); WBC Negative HPF (0-5)
[2023-12-05 10:55] LABS: ALT 36 U/L (16-63); AST 29 U/L (15-37); Albumin 2.5 g/dL (3.4-5.0); Alkaline Phosphatase 154 U/L (46-116); Anion Gap 9.8 mmol/L (3-11); BUN 28 mg/dL (7-18); Bilirubin, Total 0.55 mg/dL (0.2-1.0); CO2 26.2 mmol/L (21.0-32.0); CREATININE 1.2 mg/dL (0.70-1.30); Calcium 8.5 mg/dL (8.5-10.1); Chloride 102 mmol/L (98-107); Estimated GFR 63.85 (mL/min/1.73m2); FREE T4 1.14 ng/dL (0.76-1.46); Glucose 96 mg/dL (74-106); Magnesium 1.8 mg/dL (1.8-2.4); Potassium 4.7 mmol/L (3.5-5.1); Sodium 138 mmol/L (136-145); TSH 4.92 uIU/Ml (0.36-3.74); Total Protein 6.2 g/dL (6.4-8.2)
[2023-12-06 19:46] LABS: PSA, Ultrasensitive 0.58 ng/mL (<= 6.5)
== END 2023-12-05 10:08 | disposition home or self-care (01) ==
LOC: LBO 10:08
PROVIDERS: PCP Family Medicine; Visit Provider Internal Medicine Medical Oncology
DX: Z79.899 Other long term (current) drug therapy (principal); C34.11 Malignant neoplasm of upper lobe, right bronchus or lung; R93.5 Abnormal findings on diagnostic imaging of other abdominal regions, including retroperitoneum; R93.41 Abnormal radiologic findings on diagnostic imaging of renal pelvis, ureter, or bladder
CPT/HCPCS: 36415; 80053; 84153; 81003; 81015; 83735; 84439; 84443; 85025

== ENCOUNTER 2023-12-22 10:09 | Inpatient (IN) | payer MEDICARE, BC, SELFPAY ==
[2023-12-22] VITALS (105 sets, daily range): BP systolic 64–174; BP diastolic 36–78; PULSE 71–137; RESP 13–42; TEMP 36.4–36.6; O2SAT 85–100
--- NOTE | 2023-12-22 10:00 | RT.EKG_ITS ---
APPROVED REPORT Exam: Resting ECG Reason for Exam: SOB Patient Location: E HR:79 bpm ECG Measurements Heart Rate 79 AXIS IL 161 P 119 QRSd 89 QRS -14 QT 384 T [id number] QTc 441 Conclusion Sinus rhythm...normal P axis, V-rate 60- 99 Low voltage, extremity and precordial leads...extremity<0.5mV, precordial<1.0mV Narrow complex normal sinus rhythm at a rate of 79. Intervals within normal limits. Low voltage talbert b leads and chest wall leads. No acute injury pattern. Compared to prior and [facility] EMR from August 17 patient had low voltage then which has become more pronounced.
--- NOTE | 2023-12-22 10:45 | DI.RAD_ITS ---
Exam(s) XR CHEST 2V PA LATERAL EXAM: XR CHEST 2V PA LATERAL CLINICAL HISTORY: SOB, known cancer TECHNIQUE: 2D digital imaging was performed. Two views. COMPARISON: CR XR PORTABLE CHEST AP from 05/03/[address] CHEST W from 08/08/2023 FINDINGS: HEART: Normal size. Aorta: Not dilated. PULMONARY VASCULATURE: Normal. MEDIASTINUM: Unremarkable. LUNGS: Right upper lobe atelectasis and increased density again noted, similar to prior chest CT. Me dial left lower lobe atelectasis now present. PLEURAL SPACE: Tiny right and small left pleural effusions, new from prior. BONE:Unremarkable for age. SOFT TISSUES: Unremarkable. IMPRESSION: New left medial lower lobe atelectasis. New bilateral pleural effusions. Stable appearance of collapse of right upper lobe. DATA REPOSITORY: RADIATION DOSE DELIVERED:
--- NOTE | 2023-12-22 10:48 | W.ED.GENAD ---
Discharge Plan Discharge Details Chief Complaint: SOB Primary Care Provider: Chau Braxton ED Provider: Topher Garcia Home Meds and New Rx's Prescriptions: No Action acetaminophen [Tylenol] 325 mg capsule 325 mg PO Q6H PRN All Day Allergy (cetirizine) 10 mg capsule 10 mg PO DAILY PRN lidocaine HCl 2 % solution 1 applic mucous membrane BID metoclopramide HCl 5 mg tablet 5 mg PO QID Rx Instructions: administer 30 minutes before meals mirtazapine 30 mg tablet 30 mg PO QHS multivitamin Tablet 1 tab PO DAILY ofloxacin 0.3 % drops 10 drp otic (ear) DAILY prochlorperazine maleate 10 mg tablet 10 mg PO QID PRN tamsulosin 0.4 mg capsule 0.4 mg PO DAILY folic acid 1 mg tablet 1 mg PO DAILY Patient Comments: TAKE ONE TABLET BY MOUTH ONCE DAILY lisinopril-hydrochlorothiazide 10-12.5 mg tablet 1 tab PO DAILY chlorhexidine gluconate 0.12 % mouthwash 15 ml mucous membrane DAILY calcium carbonate-vitamin D2 600 mg calcium- 200 unit tablet 1 tab PO BID ondansetron HCl 4 mg tablet 4 mg PO Q8H PRN Patient Comments: Take 1 tablet by mouth every 6 hours as needed, for nausea Eliquis DVT-PE Treat 30D Start 5 mg (74 tabs) tablets,dose pack 5 mg PO BID Patient Comments: Take 2 ( 5 mg Tablets ) twice daily for 5 days then change dose to 1 ( 5 mg tablet twice daily) ipratropium bromide 42 mcg (0.06 %) spray,non-aerosol 2 spray INTRANASAL TID PRN Patient Comments: [place] 2 sprays in each nostril 3 times a day as needed HPI General Date/Time Provider Initiated Documentation: 12/22/23 10:27. HPI Narrative: 73 year-old male presents to ED today by POV/ambulating with his with a chief complaint of worsening shortness of breath, increasing bilateral upper extremity edema in the setting of stage IV non-small cell lung cancer with bone mets, question prostate mets, has been getting chemotherapy, immunotherapy, now awaiting trial at [facility] with onset chronically. Patient has 2-word dyspnea on arrival can barely speak due to shortness of breath. Quality described as productive cough, denies fever, endorses chest tightness, does have a bandaged skin tear to R arm from bumping it in the setting of his edema, no radiation to syncope, nausea/vomiting, black/bloody stool, hematemesis, abdominal pain. Severity is described as severe. Palliating factors include nothing attempted- have been trying to get in with PT for lymphedema treatment. Provoking factors include nothing specific. Patient not anticoagulated. Related Data Home Medications ?Medication ?Instructions ?Recorded ?Confirmed folic acid 1 mg tablet 1 mg PO DAILY 05/03/23 12/22/23 lisinopril 10 1 tab PO DAILY 05/03/23 12/22/23 mg-hydrochlorothiazide 12.5 mg tablet acetaminophen 325 mg capsule 325 mg PO Q6H PRN 07/06/23 12/22/23 (Tylenol) calcium carb-ergocalciferol (vit 1 tab PO BID 08/08/23 12/22/23 D2) 600 mg calcium-200 unit tablet chlorhexidine gluconate 0.12 % 15 ml mucous membrane DAILY 08/08/23 12/22/23 mouthwash apixaban 5 mg (74 tabs) tablets in 5 mg PO BID 09/07/23 12/22/23 a dose pack ([place] DVT-PE Treat 30D Start) ipratropium bromide 42 mcg (0.06 2 spray intranasal TID PRN 09/07/23 12/22/23 %) nasal spray ondansetron HCl 4 mg tablet 4 mg PO Q8H PRN 09/07/23 12/22/23 cetirizine 10 mg capsule (All Day 10 mg PO DAILY PRN 12/20/23 12/22/23 Allergy (cetirizine)) lidocaine HCl 2 % mucosal solution 1 applic mucous membrane BID 12/20/23 12/22/23 metoclopramide HCl 5 mg tablet 5 mg PO QID 12/20/23 12/22/23 mirtazapine 30 mg tablet 30 mg PO QHS 12/20/23 12/22/23 multivitamin 1 tab PO DAILY 12/20/23 12/22/23 ofloxacin 0.3 % ear drops 10 drp otic (ear) DAILY 12/20/23 12/22/23 prochlorperazine maleate 10 mg 10 mg PO QID PRN 12/20/23 12/22/23 tablet tamsulosin 0.4 mg capsule 0.4 mg PO DAILY 12/20/23 12/22/23 Allergies Allergy/AdvReac Type Severity Reaction Status Date / Time No Known Allergies Allergy Unverified 12/22/23 10:20 General Stated Complaint: SOB RONAN: 3 Review of Systems All systems reviewed & are unremarkable except as noted in HPI and below Exam Narrative Exam Narrative: GENERAL APPEARANCE: Well-nourished, non-toxic, awake and alert, atraumatic, no acute distress. SKIN: Warm, pink, dry, intact, without rashes/lesions/ulcerations. HEAD: Normocephalic, atraumatic, normal hair distribution for gender/age. EYES: Normal conjunctiva, no exudates on lids/lashes. ENT: Nares patent, no circumoral cyanosis, no facial swelling NECK: Supple, trachea midline, painless cervical ROM. LUNGS/CHEST: Lungs CTA bilaterally, non-labored respirations, normal A/P diameter, symmetrical expansion, no chest wall deformity HEART (CV/PV): Regular rate and rhythm without murmur, no peripheral edema, no JVD. ABDOMEN: Soft, non-distended, no guarding. MSK: Normal ROM, no swelling/deformity to bilateral UEs or LEs, moving all extremities without weakness, no cyanosis, spine midline without tenderness, normal curvature. NEURO: Mental Status AAOx4 - alert to person, place, time, events No facial droop, no forehead involvement. Motor: No focal weakness - strength 5/5 in bilateral UEs and LEs, proximal and distal, symmetric. Sensory: sensation intact to light touch globally. Gait normal: patient ambulated without ataxia into ED room. PSYCH: euthymic, cooperative, pleasant, appropriate speech Course Vital Signs Vital signs: Vital Signs Temperature 36.6 C 12/22/23 10:11 Pulse 80 12/22/23 10:11 Respiratory Rate 16 12/22/23 10:11 Blood Pressure 109/72 12/22/23 10:11 Pulse Oximetry 98 12/22/23 10:11 Temperature 36.6 C 12/22/23 10:11 Pulse 80 12/22/23 10:11 Respiratory Rate 16 12/22/23 10:11 Respiratory Effort Short of Breath 12/22/23 10:16 Blood Pressure 109/72 12/22/23 10:11 Pulse Oximetry 98 12/22/23 10:11 Pain Level 0 12/22/23 10:11 Medical Decision Making This dictation utilizes [id number] dictation software and may contain unedited grammatical errors. 73 year-old male presents to ED today by POV/ambulating with his with a chief complaint of worsening shortness of breath, increasing bilateral upper extremity edema in the setting of stage IV non-small cell lung cancer with bone mets, question prostate mets, has been getting chemotherapy, immunotherapy, now awaiting trial at [facility] with onset chronically. Patient has 2-word dyspnea on arrival can barely speak due to shortness of breath. Quality described as productive cough, denies fever, endorses chest tightness, does have a bandaged skin tear to R arm from bumping it in the setting of his edema, no radiation to syncope, nausea/vomiting, black/bloody stool, hematemesis, abdominal pain. Severity is described as severe. Palliating factors include nothing attempted- have been trying to get in with PT for lymphedema treatment. Provoking factors include nothing specific. Patients' medical history: Hypertension, metastatic lung cancer as described, diverticulosis, hyperlipidemia, cervical disc disorder, superior vena cava syndrome, BPH, occipital mass. Family and social history: Lives at home with his , extensive tobacco use and history. Pertinent exam findings / vital signs include absent lung sounds in the left lower lung kim, diffusely rhonchorous elsewhere, profoundly dyspneic barely getting to words out, benign abdomen, toxic appearing but afebrile. Differential / pathologies of concern include hypoxic respiratory failure, pneumonia, pleural effusions, new metastasis, worsening superior vena cava syndrome, benign abdomen, neuro intact. Diagnostic studies of: -CBC, BMP, liver panel, magnesium, coagulopathy studies, VBG, lactate, procalcitonin, COVID/flu/RSV PCR, TSH, troponin I, BNP, x-ray chest, CTA thorax, EKG. -CBC shows leukopenia with no acute neutropenic crisis, ANC is 1.31, worsening chronic anemia -VBG shows mild acidosis at 7.30 -PT/PTT slightly above normal -BMP shows no profound electrolyte derangements -Magnesium within normal limits -Liver panel shows elevated alk phos and low albumin -Troponin I negative -BNP 254 -Lactate negative, procalcitonin negative-do not suspect sepsis though the patient is immunocompromise and these are less reliable -TSH elevated with normal T4 -COVID/flu/RSV PCR is negative -EKG shows almost no voltage, no profound ST changes, normal intervals -X-ray shows bilateral new pleural effusions with right-sided atelectasis which is new Interventions of: -DuoNeb, 40 mg IV Lasix with improvement of his 2 word dyspnea. -Consult hospitalist for admission for likely pneumonia with acute hypoxic respiratory failure and likely overnight diuresis attempt for his pleural effusions, they are not massive I do not feel that they warrant tapping ED Course/Assessment/Plan: 73-year-old male presents with severe respiratory distress and profound 2 word dyspnea in the setting of stage IV non-small cell lung cancer with chronic right upper lobe collapse, x-ray shows new bilateral pleural effusions and some right-sided atelectasis, he has been coughing and believe he has pneumonia, he has leukopenia and is immune compromised so lactate and procalcitonin are less reliable for ruling out of sepsis. Consulted with hospitalist Dr. Guthrie who would like a CTA of the chest to reassess the severity of his superior vena cava syndrome, though there would unlikely be causing bilateral upper extremity lymphedema. Provided this is stable patient can be admitted for diuresis for acute hypoxic respiratory failure and pneumonia. Disposition of Acute hypoxic respiratory failure, pneumonia. Patient verbalized understanding of the plan and return to ED criteria and engaged in shared decision making. Medical Records Medical records reviewed: Yes I reviewed the patient's medical records. Imaging Data Radiologic Study: Attestation: I personally reviewed and interpreted this imaging study as follows: Imaging: X-Ray Radiologist's impression: EXAM: XR CHEST 2V PA LATERAL CLINICAL HISTORY: SOB, known cancer TECHNIQUE: 2D digital imaging was performed. Two views. COMPARISON: CR XR PORTABLE CHEST AP from 05/03/[address] CHEST W from 08/08/2023 FINDINGS: HEART: Normal size. Aorta: Not dilated. PULMONARY VASCULATURE: Normal. MEDIASTINUM: Unremarkable. LUNGS: Right upper lobe atelectasis and increased density again noted, similar to prior chest CT. Medial left lower lobe atelectasis now present. PLEURAL SPACE: Tiny right and small left pleural effusions, new from prior. BONE:Unremarkable for age. SOFT TISSUES: Unremarkable. IMPRESSION: New left medial lower lobe atelectasis. New bilateral pleural effusions. Stable appearance of collapse of right upper lobe. Radiologic Study #2: Attestation: I personally reviewed and interpreted this imaging study as follows: Imaging: CT Scan Lab Data Lab results reviewed: Yes I reviewed the patient's lab results. Labs: 12/22/23 11:36 Blood Blood Culture - Pending 12/22/23 10:54 Blood Blood Culture - Pending Laboratory Tests Range/Units 12/22/23 12/22/23 12/22/23 11:36 11:54 12:09 WBC (4.4-10.8) 10^3/uL 3.03 L RBC (4.36-5.78) 10^6/uL 2.79 L Hgb (13.5-17.5) g/dL 9.2 L Hct (40.0-50.0) % 28.9 L MCV (80-95) fL 104 H MCH (27.0-33.0) pg 33.0 MCHC (32.0-36.0) % 31.8 L RDW (11.8-14.1) % 14.2 H Plt Count (130-400) 10^3/uL 150 MPV (8.0-11.0) fL 8.6 Immature Gran % % 0.3 Neutrophils % % 43.3 Lymphocytes % % 27.4 Monocytes % % 26.7 Eosinophils % % 2.0 Basophils % % 0.3 Nucleated RBC % (0.0-0.3) % 0.0 Absolute Neutrophils (1.2-6.7) 10^3/uL 1.31 Absolute Lymphocytes (1.2-3.4) 10^3/uL 0.83 L Absolute Monocytes (0.1-0.8) 10^3/uL 0.81 H Absolute Eosinophils (0.0-0.7) 10^3/uL 0.06 Absolute Basophils (0.0-0.2) 10^3/uL 0.01 PT (9.1-11.1) sec 11.5 H INR (0.9-1.1) 1.2 H VBG pH (7.31-7.41) 7.30 L VBG pCO2 (41-51) mmHg 51 VBG pO2 mmHg 27 VBG HCO3 (23-28) mmol/L 25 VBG Total CO2 (24-29) mmol/L 24 VBG O2 Saturation % 47 VBG Base Excess (-2-3) mmol/L -2 VBG Lactate (0.6-1.4) mmol/L 1.2 Sodium (136-145) mmol/L 128 L Potassium (3.5-5.1) mmol/L 5.1 Chloride (98-107) mmol/L 96 L Carbon Dioxide (21.0-32.0) mmol/L 25.3 Anion Gap (3-11) mmol/L 6.7 BUN (7-18) mg/dL 24 H Creatinine (0.70-1.30) mg/dL 1.3 Est GFR (CKD-EPI 2020) (mL/min/1.73m2) 58.01 Glucose (74-106) mg/dL 99 Calcium (8.5-10.1) mg/dL 8.7 Magnesium (1.8-2.4) mg/dL 2.1 Total Bilirubin (0.2-1.0) mg/dL 0.78 Conjugated Bilirubin (0.0-0.2) mg/dL 0.2 AST (15-37) U/L 21 ALT (16-63) U/L 17 Alkaline Phosphatase (46-116) U/L 277 H Ammonia (11-32) umol/L 15 Troponin I (< or =60) ng/L < 50 NT-Pro-B Natriuret Pep (<300) pg/mL 254 Total Protein (6.4-8.2) g/dL 5.8 L Albumin (3.4-5.0) g/dL 2.0 L Procalcitonin ng/mL 0.1 TSH (0.36-3.74) uIU/mL 4.15 H Free T4 (0.76-1.46) ng/dL 1.27 COVID-19 Source Nasopharynx SARS-CoV-2 (PCR) (Negative) Negative Influenza Type A (PCR) (Negative) Negative Influenza Type B (PCR) (Negative) Negative RSV (PCR) (Negative) Negative Quality:SDOH Health Related Social Needs: No Data to Display PFSH All Active Problems (Updated 12/20/23 @ 14:30 by Vince Simmons) Erectile dysfunction (Acute) 08/17/2022 Diverticulosis (Acute) of large intestine (06/17/2010) Allergic rhinitis (Acute) 07/25/2022 Hemorrhoids (Acute) 2 of [address] 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 Hyperlipidemia (Acute) 07/23/2020 Adult failure to thrive syndrome (Acute) ONSET: 08/30/2023- From CHEMO Superior vena cava syndrome (Acute) 08/29/2023 Benign prostatic hyperplasia without urinary obstruction (Acute) 12/17/2023 Mastoiditis (Acute) Occipital mass (Acute) Non-small cell lung cancer (Acute) Otalgia, left ear (Acute) COVID (Acute) Medical History (Updated 12/20/23 @ 14:30 by Vince Simmons) HTN (hypertension) 05/16/2017 Metastatic lung cancer (metastasis from lung to other site) 06/27/2023 Family History (Updated 12/20/23 @ 14:31 by Vince Simmons) Mother Hypertension Social History Smoking/Tobacco Use Status: Former Tobacco Use Smoking risk assessment performed?: Yes Alcohol Intake: former Drug use: Never Substance use type: does not use Housing: house Do you feel safe at home: Yes Do you feel safe in your relationship?: Yes Sign Out Sign Out Data: Sign Out Comment: Patient awaiting CT results > new bilateral pleural effusions in the setting of stage IV lung CA Had 2-word dyspnea on arrival, was given 40mg lasix with some improvement, likely needs admit for pneumonia and acute hypoxic respiratory failure, diuresis. awaiting CT chest for re-eval of known superior vena cava syndrome at request of Hospitalist Last updated by Topher Garcia PA at 12/22/23 16:44
[2023-12-22] MEDS: Albuterol/Ipratropium 3 ML UPD VIAL UPD (11:06)
--- NOTE | 2023-12-22 11:36 | DI.VRAD_ITS ---
PROCEDURE INFORMATION: Exam: XR Chest Exam date and time: 12/22/2023 11:09 AM Age: 73 years old Clinical indication: Other: SOB, known cancer TECHNIQUE: Imaging protocol: Radiologic exam of the chest. Views: 2 views. COMPARISON: CT CHEST W 08/08/2023 5:47 PM FINDINGS: Lungs: Left lower lobe consolidation collapse. Right hilar mass with right upper lobe post obstructive changes. Pleural spaces: There are bilateral pleural effusions. Heart/Mediastinum: Unremarkable. No cardiomegaly. Bones/joints: Unremarkable. IMPRESSION: 1. Right hilar mass with right upper lobe postobstructive changes. 2. Bilateral pleural effusions with lower lobe atelectasis. Dictated and Authenticated by: Yossi Francis MD. Ordering:ROSE Obando MD
[2023-12-22] MEDS: Furosemide 40 MG/4 ML VIAL IVP ×2 (11:41→19:05)
[2023-12-22 11:45] LABS: Abs Immature Grans 0.01 10^3/uL (0.0-0.06); Absolute Basophil Count 0.01 10^3/uL (0.0-0.2); Absolute Eosinophil Count 0.06 10^3/uL (0.0-0.7); Absolute Lymphocyte Count 0.83 10^3/uL (1.2-3.4); Absolute Monocyte Count 0.81 10^3/uL (0.1-0.8); Absolute Neutrophil Count 1.31 10^3/uL (1.2-6.7); BE (Venous) -2 mmol/L (-2-3); Basophils % 0.3 %; HCO3 (Venous) 25 mmol/L (23-28); HCT 28.9 % (40.0-50.0); HGB 9.2 g/dL (13.5-17.5); Immature Grans % 0.3 %; Lactate 1.2 mmol/L (0.6-1.4); Lymphocytes % 27.4 %; MCHC 31.8 % (32.0-36.0); MCV 104 fL (80-95); MPV 8.6 fL (8.0-11.0); Monocytes % 26.7 %; Neutrophils % 43.3 %; O2 Sat (Venous) 47 %; Platelet Count 150 10^3/uL (130-400); RBC 2.79 10^6/uL (4.36-5.78); RDW 14.2 % (11.8-14.1); RDW-SD 54.5 fL; TCO2 (Venous) 24 mmol/L (24-29); WBC 3.03 10^3/uL (4.4-10.8); pCO2 (Venous) 51 mmHg (41-51); pO2 (Venous) 27 mmHg
[2023-12-22 11:56] LABS: INR 1.2 (0.9-1.1); Prothrombin Time 11.5 sec (9.1-11.1)
[2023-12-22 12:15] LABS: ALT 17 U/L (16-63); AST 21 U/L (15-37); Alkaline Phosphatase 277 U/L (46-116); Anion Gap 6.7 mmol/L (3-11); BUN 24 mg/dL (7-18); Bilirubin, Direct 0.2 mg/dL (0.0-0.2); Bilirubin, Total 0.78 mg/dL (0.2-1.0); CO2 25.3 mmol/L (21.0-32.0); CREATININE 1.3 mg/dL (0.70-1.30); Calcium 8.7 mg/dL (8.5-10.1); Chloride 96 mmol/L (98-107); Estimated GFR 58.01 (mL/min/1.73m2); Glucose 99 mg/dL (74-106); Magnesium 2.1 mg/dL (1.8-2.4); NT-proBNP 254 pg/mL (<300); Potassium 5.1 mmol/L (3.5-5.1); Sodium 128 mmol/L (136-145); TSH (W/Ref FT4) 4.15 uIU/mL (0.36-3.74); Total Protein 5.8 g/dL (6.4-8.2); Troponin I < 50 ng/L (< or =60)
[2023-12-22 12:15] LABS: Ammonia 15 umol/L (11-32)
[2023-12-22 12:20] LABS: Procalcitonin 0.1 ng/mL
[2023-12-22 12:33] LABS: FREE T4 1.27 ng/dL (0.76-1.46)
[2023-12-22 12:58] LABS: COVID-19 PCR Negative (Negative); Influenza A PCR Negative (Negative); Influenza B PCR Negative (Negative); RSV PCR Negative (Negative)
[2023-12-22 13:12] LABS: Source Nasopharynx
--- NOTE | 2023-12-22 14:52 | DI.CT_ITS ---
Exam(s) CT CHEST W EXAM: CT CHEST W CLINICAL HISTORY: question superior vena cava syndrome TECHNIQUE: Imaging Protocol: Axial computed tomography images with coronal and sagittal reformatted images were created and reviewed CONTRAST MATERIAL: Intravenous: Omnipaque 350 Contrast volume:70 ml. COMPARISON: CT CT CHEST W from 08/08/2023 FINDINGS: Exam is somewhat limited due to poor pulmonary inflation and mild motion. Pulmonary parenchyma: Bibasilar atelectasis. Right upper lobe mass and postobstructive atelectasis. Nodular density noted in the right upper lobe, worsening from prior. Tracheobronchial tree: No bronchiectasis or mucous plugging. Compression of the right main bronchus w ith mild narrowing. Mediastinum and Vivi: Mass around the right hilum and upper mediastinum similar to prior. Pleura: Small right and moderate left pleural effusion. Adjacent no pneumothorax. Heart: The heart is not dilated. No coronary artery calcifications are seen. Aorta: Thoracic aorta non-dilated. Mild atherosclerotic changes. Pulmonary arteries: No gross evidence of emboli. Compression of the right main pulmonary artery. SVC: Compression of the SVC again noted. Brachiocephalic vein again noted to be narrowed. Upper abdomen: No acute findings. Bones: Degenerative changes in the spine. Soft tissues: Opacification of collateral veins in the left chest wall which drain into the hepatic v ein. Bilateral mild gynecomastia. IMPRESSION: Mass again noted in the right hilar and mediastinum with narrowing of the SVC, brachial cephalic vein in right pulmonary artery. Postobstructive atelectasis of the right upper lobe again noted. Worsening of right upper lobe infiltrates. Worsening of bilateral pleural effusions, left greater than right. RADIATION DOSE DELIVERED: Total DLP DATA REPOSITORY: All CT scans at this facility are submitted to the National Radiology Data Registry (NRDR) Dose Index Registry (DIR) with the [employer] [place] [employer] (A[employer]). RADIATION OPTIMIZATION: All CT scans at this facility use at least one of these dose optimization te chniques: automated exposure control; mA and/or kV adjustment per patient size (includes targeted exa ms where dose is matched to clinical indication); or iterative reconstruction.
[2023-12-22] MEDS: Normal Saline - Diluent 50 ML VIAL IJ (16:28)
[2023-12-22] MEDS: Omnipaque 350 MG/ML 100 ML BTL 70 ML IJ (16:29)
--- NOTE | 2023-12-22 16:45 | DI.VRAD_ITS ---
PROCEDURE INFORMATION: Exam: CT Chest With Contrast; Diagnostic Exam date and time: 12/22/2023 4:16 PM Age: 73 years old Clinical indication: Other: Question superior vena cava syndrome TECHNIQUE: Imaging protocol: Diagnostic computed tomography of the chest with contrast. 3D rendering (Not supervised by radiologist): MIP and/or 3D reconstructed images were created by the technologist. Radiation optimization: All CT scans at this facility use at least one of these dose optimization techniques: automated exposure control; mA and/or kV adjustment per patient size (includes targeted exams where dose is matched to clinical indication); or iterative reconstruction. Contrast material: OMNI 350; Contrast volume: 70 ml; Contrast route: INTRAVENOUS (IV); COMPARISON: CT CHEST W 08/08/2023 5:47 PM FINDINGS: Lungs: Redemonstrated the right hilar mass with right upper lobe postobstructive segmental atelectasis. There is compression of the right mainstem bronchus with mild narrowing. There is left lower lobe atelectasis. Ground-glass and nodular infiltrates in the apical segment of the right upper lobe. Pleural spaces: Bilateral pleural effusions, larger on the left side. Heart: Unremarkable. No cardiomegaly. No pericardial effusion. Mediastinal space: The right hilar mass measures 3.5 x 4 point 2 cm. Lymph nodes: Unremarkable. No enlarged lymph nodes. Vasculature: There secondary compression of the SVC which is at the anterior aspect of the mass with severe narrowing estimated at 90%. The mass is compressing the right main pulmonary artery with moderate narrowing. No pulmonary embolism. Bones/joints: Mild curvature of the thoracic spine convex to the right. Soft tissues: Collateral circulation in the left anterior chest and abdominal wall draining into the hepatic IVC. IMPRESSION: 1. Right hilar mass with secondary severe stenosis of the SVC and collateral circulation in the left chest and abdominal wall draining into the hepatic IVC. Findings are stable compared to prior study. 2. Moderate narrowing of the right main pulmonary artery by mass compression. 3. Postobstructive atelectasis in the right upper lobe with right upper lobe ground-glass opacities that might represent early infection versus post obstructive changes. Dictated and Authenticated by: Yossi Francis MD. Ordering:ROSE Obando MD
[2023-12-22] MEDS: cefTRIAXone 1 GM/50 ML BAG IVPB (17:52)
[2023-12-22] MEDS: Albuterol/Ipratropium 3 ML UPD VIAL (19:05)
--- NOTE | 2023-12-22 19:44 | W.EDPROG ---
Date of service: 12/22/23 Time of Service: 16:00 Medical Decision Making End of report received from EMILY Prabhakar, daytime MANOLO. Please see his note for full HPI/ROS and diagnostic findings. Alberto is a 73-year-old male with history of non-small cell lung cancer who presented to the emergency department today for increasing shortness of breath over the last couple of days with a productive cough. Overall workup today consistent with likely pneumonia and acute hypoxic respiratory failure. CTA of chest performed per hospitalist request to rule out worsening superior vena cava syndrome. While in the emergency department he initially received DuoNeb and 40 mg furosemide, with approximately 500 cc urine output. Around 1900 Alberto developed shortness of breath with coarse wheezes throughout.; O2 sat 88% on RA An additional 40 mg of Lasix and DuoNeb given with good improvement in symptoms and resolution of need for supplemental O2. He does still feel like he is wheezing, so a second albuterol was given. Rocephin given for likely pneumonia. 1944: Discussed case with Dr. Huddleston, overnight hospitalist. Patient to be admitted, will stay overnight in the ED until a bed available in [facility] unit. He is agreeable with plan of care. Quality:[facility] Health Related Social Needs: No Data to Display Sign Out Sign Out Data: Sign Out Comment: Patient awaiting CT results > new bilateral pleural effusions in the setting of stage IV lung CA Had 2-word dyspnea on arrival, was given 40mg lasix with some improvement, likely needs admit for pneumonia and acute hypoxic respiratory failure, diuresis. awaiting CT chest for re-eval of known superior vena cava syndrome at request of Hospitalist Last updated by Topher Garcia PA at 12/22/23 16:44 Discharge Plan Discharge Details Chief Complaint: SOB Primary Care Provider: Chau Braxton ED Provider: Alcira Rashid Home Meds and New Rx's Prescriptions: No Action acetaminophen [Tylenol] 325 mg capsule 325 mg PO Q6H PRN All Day Allergy (cetirizine) 10 mg capsule 10 mg PO DAILY PRN lidocaine HCl 2 % solution 1 applic mucous membrane BID metoclopramide HCl 5 mg tablet 5 mg PO QID Rx Instructions: administer 30 minutes before meals mirtazapine 30 mg tablet 30 mg PO QHS multivitamin Tablet 1 tab PO DAILY ofloxacin 0.3 % drops 10 drp otic (ear) DAILY prochlorperazine maleate 10 mg tablet 10 mg PO QID PRN tamsulosin 0.4 mg capsule 0.4 mg PO DAILY folic acid 1 mg tablet 1 mg PO DAILY Patient Comments: TAKE ONE TABLET BY MOUTH ONCE DAILY lisinopril-hydrochlorothiazide 10-12.5 mg tablet 1 tab PO DAILY chlorhexidine gluconate 0.12 % mouthwash 15 ml mucous membrane DAILY calcium carbonate-vitamin D2 600 mg calcium- 200 unit tablet 1 tab PO BID ondansetron HCl 4 mg tablet 4 mg PO Q8H PRN Patient Comments: Take 1 tablet by mouth every 6 hours as needed, for nausea Eliquis DVT-PE Treat 30D Start 5 mg (74 tabs) tablets,dose pack 5 mg PO BID Patient Comments: Take 2 ( 5 mg Tablets ) twice daily for 5 days then change dose to 1 ( 5 mg tablet twice daily) ipratropium bromide 42 mcg (0.06 %) spray,non-aerosol 2 spray INTRANASAL TID PRN Patient Comments: [place] 2 sprays in each nostril 3 times a day as needed
[2023-12-22] MEDS: Albuterol 2.5 MG/3 ML INH SOLN VIAL UPD (19:50)
--- NOTE | 2023-12-22 20:37 | W.PM.HP.N ---
Date of service: 12/22/23 Time of Service: 20:47 Assessment and Plan Assessment and plan (1) Dyspnea: Status: Acute Assessment and plan: The patient comes in w/ acute onset of dyspnea at rest and with minimal exerion which began 1 week ago and is acute. He has a PMH NSLC w/ Stage IV mets complicated with bilateral SVC syndrome. On evaluation today his CT Chest shows significant bilateral pleural effusions along w/ evidence of SVC. He has recieved Lasix 40mg x2 doses in the ER without any significant diuresis. Recommend to trial w/ Bumex, monitor I/O, daily weights and BMP/Cr. He is on Eliquis but it maybe that we cannot improve his symptoms w/ diuresis he may require thoracocentesis. He does not have any issues w/ recurrent pleural effusions but if this is a recurrent process due to his malignancy he may require a PleurX catheter drain. -Administered Lasix 40mg x2 in ER -Cont w/ oxygen supplementation. If he has acute worsening then he may require Bipap -Change to IV Bumex and monitor diuresis -If he has no significant diuresis then consider holding Eliquis and thoracocentesis Full Code Surrogate Decision Maker Irene Ding () [phone] Qualifiers: Dyspnea type: shortness of breath Qualified Code(s): R06.02 - Shortness of breath (2) Non-small cell lung cancer: Status: Chronic Assessment and plan: His current medical oncology reigmen is on hold, Ramucirumab and Pembrolizumab, as he is being evaluated at [facility]. 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 He was started on Eliquis w/ concern for DVT w/ external compression but a LUE US on 08/09/23 did not show any DVT. -He has significant bilateral upper extremity edema w/ CT venogram showing bilateral complete compression/occlusion of the brachiocephalic veins -He is at high risk for RUE cellulitis w/ significant edema. He has no pain on palpation or warmth but does have a superficial tear w/ clear drainage which will require wound care evaluation -Cont w/ diuresis -Cont w/ Eliquis -Unfortunately there is little we can do at this time as the treatment is for the underlying malignancy -Consider stent placement (4) HTN (hypertension): Assessment and plan: -Cont w/ Lisinopril-HCTZ Qualifiers: Hypertension type: primary hypertension Qualified Code(s): I10 - Essential (primary) hypertension History of Present Illness History of Present Illness Chief Complaint: Shortness of breath Narrative: The patient is a 73 y/o C M w/ PMH Stage IV Non-small cell lung carcinoma with metastasis of mediastinal lymph node, adrenal gland, occiptial bone w/ possible left parietal brain metastasis which was diagnosed in 2022. He underwent lung bronchoscopy on 11/03/22 which diagnosed adenocarcinoma and has since completed palliative radiating therapy to occipital metastasis on 01/02/23 and his treatment consisted of Carboplatin, Pemetrexed and Pembrolizumab. On 05/14/23 he was noted to have new bony lesions concerning for systemic progression and has been enrolled in a study trial w/ his new regimen consisting of Ramucirumab and Pembrolizumab. He has also completed XRT to the upper mediastinum from 09/12/23-09/18/23. He is now being evaluated at [facility] on 12/27 and his current regimen is on hold. His care is also complicated with suspected SVC syndrome. A CT Venogram on 08/27/23 showed mild compression of the right main pulmonary artery with near occlusion of the distal right brachiocephalic vein and proximal SVC as well as complete occlusion of the left proximal brachiocephalic vein. He was started on Eliquis w/ concern for DVT w/ external compression but a LUE US on 08/09/23 did not show any DVT. He comes to the ED today due to acute onset of dyspnea at rest which has been on-going for the past 1 week. Prior to this he was able to do his basic activities of daily living but now is unable to do so. He has difficulty with walking across the room or even taking a shower. His dyspnea is present at rest and w/ minmal exertion. Associated symptoms include of productive clear cough, wheezing and palpitations. He has been having orthopnea and is unable to lay down flat. He has not had any weight gain but rather weight loss. He has no significant lower extremity edema but since 12/05/23 he has had significant bilateral upper extremity edema. He denies any fever, chills or night sweats. He has no issues w/ chest pain. He denies any significant pain of his upper extremity but there is erythema on the right along with a superficial tear. He has had clear drainage from the upper extremities. Review of Systems Constitutional Constitutional: Denies chills, Denies fatigue, Denies fever(s), Denies headache(s), Denies night sweats, Denies poor appetite, Denies weight gain and Reports weight loss Eyes Eyes: Denies blurry vision, Denies diplopia and Denies loss of vision ENT Ears, Nose, Mouth, and Throat: Denies dysphagia, Denies headache(s), Denies neck pain and Denies sore throat Cardiovascular Cardiovascular: Denies chest pain, Denies irregular heart rhythm, Reports dyspnea, Reports dyspnea on exertion and Reports orthopnea Respiratory Respiratory: Reports dyspnea, Reports dyspnea on exertion and Denies stridor Gastrointestinal Gastrointestinal: Denies abdominal pain, Denies melena, Denies hematochezia, Denies constipation, Denies dysphagia and Denies heartburn Genitourinary Genitourinary: Denies hematuria Musculoskeletal Musculoskeletal: Denies arthralgias, Denies neck pain and Denies numbness Neurologic Neurologic: Denies headache(s), Denies loss of vision, Denies numbness and Denies paresthesias Psychiatric Psychiatric: Denies depression and Denies mood swings Endocrine Endocrine: Denies fatigue PFSH All Active Problems (Updated 12/22/23 @ 21:40 by Javier Huddleston MD) Dyspnea (Acute) Erectile dysfunction (Acute) 08/17/2022 Diverticulosis (Acute) of large intestine (06/17/2010) Allergic rhinitis (Acute) 07/25/2022 Hemorrhoids (Acute) 2 of [address] 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 Hyperlipidemia (Acute) 07/23/2020 Adult failure to thrive syndrome (Acute) ONSET: 08/30/2023- From CHEMO Superior vena cava syndrome (Chronic) 08/29/2023 Benign prostatic hyperplasia without urinary obstruction (Acute) 12/17/2023 Mastoiditis (Acute) Occipital mass (Acute) Non-small cell lung cancer (Chronic) Otalgia, left ear (Acute) COVID (Acute) Medical History (Updated 12/22/23 @ 21:40 by Javier Huddleston MD) HTN (hypertension) 05/16/2017 Metastatic lung cancer (metastasis from lung to other site) 06/27/2023 Family History (Updated 12/20/23 @ 14:31 by Vince Simmons) Mother Hypertension Social History Smoking/Tobacco Use Status: Former Tobacco Use Smoking risk assessment performed?: Yes Alcohol Intake: former Drug use: Never Substance use type: does not use Housing: house Do you feel safe at home: Yes Do you feel safe in your relationship?: Yes Meds Allergies and Home Medications Allergies Allergy/AdvReac Type Severity Reaction Status Date / Time No Known Allergies Allergy Unverified 12/22/23 10:20 Home Medications ?Medication ?Instructions ?Recorded ?Confirmed ?Type folic acid 1 mg tablet 1 mg PO DAILY 05/03/23 12/22/23 History lisinopril 10 1 tab PO DAILY 05/03/23 12/22/23 History mg-hydrochlorothiazide 12.5 mg tablet acetaminophen 325 mg capsule 325 mg PO Q6H PRN 07/06/23 12/22/23 History (Tylenol) calcium carb-ergocalciferol (vit 1 tab PO BID 08/08/23 12/22/23 History D2) 600 mg calcium-200 unit tablet chlorhexidine gluconate 0.12 % 15 ml mucous membrane DAILY 08/08/23 12/22/23 History mouthwash apixaban 5 mg (74 tabs) tablets in 5 mg PO BID 09/07/23 12/22/23 History a dose pack (Eliquis DVT-PE Treat 30D Start) ipratropium bromide 42 mcg (0.06 2 spray intranasal TID PRN 09/07/23 12/22/23 History %) nasal spray ondansetron HCl 4 mg tablet 4 mg PO Q8H PRN 09/07/23 12/22/23 History cetirizine 10 mg capsule (All Day 10 mg PO DAILY PRN 12/20/23 12/22/23 History Allergy (cetirizine)) lidocaine HCl 2 % mucosal solution 1 applic mucous membrane BID 12/20/23 12/22/23 History metoclopramide HCl 5 mg tablet 5 mg PO QID 12/20/23 12/22/23 History mirtazapine 30 mg tablet 30 mg PO QHS 12/20/23 12/22/23 History multivitamin 1 tab PO DAILY 12/20/23 12/22/23 History ofloxacin 0.3 % ear drops 10 drp otic (ear) DAILY 12/20/23 12/22/23 History prochlorperazine maleate 10 mg 10 mg PO QID PRN 12/20/23 12/22/23 History tablet tamsulosin 0.4 mg capsule 0.4 mg PO DAILY 12/20/23 12/22/23 History Exam Const General: cooperative and comfortable Nutritional Appearance: average body habitus Orientation: alert, awake and oriented x3 Limitations: mental status not altered [facility] Head: normal to inspection, normocephalic and atraumatic Ears: hearing grossly normal bilaterally General nose exam: external nose normal Face and sinus: normal facial exam Eyes General: appearance normal, both eyes and all related structures Periorbital: periorbital findings normal Eyelids: eyelids normal Neck Neck: normal visual inspection, full ROM and no lymphadenopathy Chest Chest: normal inspection of the chest Resp Effort & Inspection: normal respiratory effort and able to speak in complete sentences Auscultation: breath sounds absent and crackles Cardio Jugular venous pressure: no JVD Rate: regular rate Rhythm: regular rhythm Heart Sounds: S1 normal and S2 normal GI Inspection: normal to inspection Palpation: soft Percussion: normal to percussion Auscultation: normal bowel sounds Skin Other: small spider veins of the anterior chest Neuro General: patient alert, patient awake and patient oriented x3 Cranial Nerves: CN's II-XI intact bilaterally Cognition: normal cognition Speech: speech normal Extrem Right upper extremity: edema (Significant RUE edema. erythema of the forearm w/ clear drainage ) Left upper extremity: edema (LUE edema) Other: There is small clear drainage from the RUE but no pain on palpation or warmth of the area Bilateral ankle edema 2+ Psych Appearance: grossly normal Mental Status: mental status grossly normal Results Imaging Imaging Studies: CT Chest: MPRESSION: 1. Right hilar mass with secondary severe stenosis of the SVC and collateral circulation in the left chest and abdominal wall draining into the hepatic IVC. Findings are stable compared to prior study. 2. Moderate narrowing of the right main pulmonary artery by mass compression. 3. Postobstructive atelectasis in the right upper lobe with right upper lobe ground-glass opacities that might represent early infection versus post obstructive changes Labs 12/22/23 11:36 12/22/23 11:36 Labs: Laboratory Results - last 24 hr 12/22/23 12/22/23 12/22/23 11:36 11:54 12:09 WBC 3.03 L RBC 2.79 L Hgb 9.2 L Hct 28.9 L MCV 104 H MCH 33.0 MCHC 31.8 L RDW 14.2 H Plt Count 150 MPV 8.6 Immature Gran % 0.3 Neutrophils % 43.3 Lymphocytes % 27.4 Monocytes % 26.7 Eosinophils % 2.0 Basophils % 0.3 Nucleated RBC % 0.0 Absolute Neutrophils 1.31 Absolute Lymphocytes 0.83 L Absolute Monocytes 0.81 H Absolute Eosinophils 0.06 Absolute Basophils 0.01 PT 11.5 H INR 1.2 H VBG pH 7.30 L VBG pCO2 51 VBG pO2 27 VBG HCO3 25 VBG Total CO2 24 VBG O2 Saturation 47 VBG Base Excess -2 VBG Lactate 1.2 Sodium 128 L Potassium 5.1 Chloride 96 L Carbon Dioxide 25.3 Anion Gap 6.7 BUN 24 H Creatinine 1.3 Est GFR (CKD-EPI 2020) 58.01 Glucose 99 Calcium 8.7 Magnesium 2.1 Total Bilirubin 0.78 Conjugated Bilirubin 0.2 AST 21 ALT 17 Alkaline Phosphatase 277 H Ammonia 15 Troponin I < 50 NT-Pro-B Natriuret Pep 254 Total Protein 5.8 L Albumin 2.0 L Procalcitonin 0.1 TSH 4.15 H Free T4 1.27 COVID-19 Source Nasopharynx SARS-CoV-2 (PCR) Negative Influenza Type A (PCR) Negative Influenza Type B (PCR) Negative RSV (PCR) Negative Last Vital Signs Temp 36.6 C 12/22/23 10:11 Pulse 79 12/22/23 15:16 Resp 37 H 12/22/23 15:20 BP 122/65 12/22/23 15:16 Pulse Ox 94 12/22/23 15:10 Time Spent Time spent with Patient: 55-74 minutes Time was spent: preparing to see the patient(eg.review tests), obtaining and/or reviewing separately otained hiistory, indepentently interpreting results and counseling the patient
[2023-12-23] MEDS: Bumetanide 1 MG/4 ML VIAL IVP ×3 (01:06→16:06)
[2023-12-23] MEDS: Mirtazapine 15 MG TAB 30 MG PO ×2 (01:07→20:11)
--- NOTE | 2023-12-23 04:47 | W.PC.ACHO ---
Registration Status: Primary Language: Preferred Language: ED Information & Data Chief Complaint SOB 12/22/23 10:52 Triage Note sob, coughing thick phlem, 12/22/23 10:11 lymphedema bilateral arms, right arm weeping and red. had swelling in arms before and has gone down on it's own, not this time. He fell sunday, which gave pt skin tear to right arm. Pt reports he did not hit head, no ballard no neck pain. since sunday SOB much worse. no hx CHF. pt has hx of SCLC. pt also had BLE edema. Medical / Surgical History (Last Updated 12/20/23 @ 14:30 by Vince Simmons) HTN (hypertension) Metastatic lung cancer (metastasis from lung to other site) Most Recent Vital Signs Temperature 36.4 C L 12/22/23 23:05 Pulse 89 12/22/23 23:05 Pulse Rhythm Regular 12/22/23 23:05 Pulse 81 12/22/23 22:31 Respiratory Rate 32 H 12/22/23 23:05 Respiratory Effort Short of Breath, Grunting 12/22/23 23:05 Respiratory Depth Normal 12/22/23 23:05 Respiratory Pattern Tachypnea 12/22/23 23:05 Blood Pressure 124/65 12/22/23 23:05 Blood Pressure Mean 79 12/22/23 22:30 Pulse Oximetry 96 12/22/23 23:05 Oxygen Delivery Method Nasal Cannula 12/22/23 23:05 Oxygen Flow Rate 2.5 12/22/23 23:05 Pain Level 0 12/22/23 23:05 Allergies No Known Allergies Allergy (Unverified 12/22/23 10:20) Active Medications Generic Name Dose Route Start Last Admin Trade Name Freq PRN Reason Stop Dose Admin Bumetanide 1 mg 12/23/23 00:00 12/23/23 01:06 Bumetanide 1 Mg/4 Ml Vial IVP 12/23/23 16:01 1 mg Q8H JUDIT Administration Iohexol 70 ml 12/22/23 16:30 12/22/23 16:29 Omnipaque 350 Mg/Ml 100 Ml Btl IJ 01/21/24 23:59 70 ml DIRECTED JUDIT Administration Mirtazapine 30 mg 12/22/23 22:57 12/23/23 01:07 Mirtazapine 15 Mg Tab PO 30 mg HS JUDIT Administration Sodium Chloride 50 ml 12/22/23 16:30 12/22/23 16:28 Normal Saline - Diluent 50 Ml Vial IJ 50 ml .FOR DI USE JUDIT Administration IV IV Catheter Type [Left Saline Lock Antecubital] IV Catheter Gauge [Left 18 Antecubital] Diet Orders Category Date Time Status Regular/Normal [DIET] Nutrition 12/23/23 Breakfast Active Diagnostics 12/22/23 12/22/23 12/22/23 Range/Units Unknown 21:45 12:09 WBC Pending (4.4-10.8) 10^3/uL RBC Pending (4.36-5.78) 10^6/uL Hgb Pending (13.5-17.5) g/dL Hct Pending (40.0-50.0) % MCV Pending (80-95) fL MCH Pending (27.0-33.0) pg MCHC Pending (32.0-36.0) % RDW Pending (11.8-14.1) % Plt Count Pending (130-400) 10^3/uL MPV Pending (8.0-11.0) fL Immature Gran % % Neutrophils % % Lymphocytes % % Monocytes % % Eosinophils % % Basophils % % Nucleated RBC % (0.0-0.3) % Absolute Neutrophils (1.2-6.7) 10^3/uL Absolute Lymphocytes (1.2-3.4) 10^3/uL Absolute Monocytes (0.1-0.8) 10^3/uL Absolute Eosinophils (0.0-0.7) 10^3/uL Absolute Basophils (0.0-0.2) 10^3/uL PT (9.1-11.1) sec INR (0.9-1.1) VBG pH (7.31-7.41) VBG pCO2 (41-51) mmHg VBG pO2 mmHg VBG HCO3 (23-28) mmol/L VBG Total CO2 (24-29) mmol/L VBG O2 Saturation % VBG Base Excess (-2-3) mmol/L VBG Lactate (0.6-1.4) mmol/L Sodium Pending (136-145) mmol/L Potassium Pending (3.5-5.1) mmol/L Chloride Pending (98-107) mmol/L Carbon Dioxide Pending (21.0-32.0) mmol/L Anion Gap Pending (3-11) mmol/L BUN Pending (7-18) mg/dL Creatinine Pending (0.70-1.30) mg/dL Est GFR (CKD-EPI 2020) Pending (mL/min/1.73m2) Glucose Pending (74-106) mg/dL Calcium Pending (8.5-10.1) mg/dL Magnesium (1.8-2.4) mg/dL Total Bilirubin (0.2-1.0) mg/dL Conjugated Bilirubin (0.0-0.2) mg/dL AST (15-37) U/L ALT (16-63) U/L Alkaline Phosphatase (46-116) U/L Ammonia (11-32) umol/L Troponin I (< or =60) ng/L NT-Pro-B Natriuret Pep (<300) pg/mL Total Protein (6.4-8.2) g/dL Albumin (3.4-5.0) g/dL Procalcitonin ng/mL TSH (0.36-3.74) uIU/mL Free T4 (0.76-1.46) ng/dL COVID-19 Source Nasopharynx SARS-CoV-2 (PCR) Negative (Negative) Influenza Type A (PCR) Negative (Negative) Influenza Type B (PCR) Negative (Negative) RSV (PCR) Negative (Negative) 12/22/23 12/22/23 Range/Units 11:54 11:36 WBC 3.03 L (4.4-10.8) 10^3/uL RBC 2.79 L (4.36-5.78) 10^6/uL Hgb 9.2 L (13.5-17.5) g/dL Hct 28.9 L (40.0-50.0) % MCV 104 H (80-95) fL MCH 33.0 (27.0-33.0) pg MCHC 31.8 L (32.0-36.0) % RDW 14.2 H (11.8-14.1) % Plt Count 150 (130-400) 10^3/uL MPV 8.6 (8.0-11.0) fL Immature Gran % 0.3 % Neutrophils % 43.3 % Lymphocytes % 27.4 % Monocytes % 26.7 % Eosinophils % 2.0 % Basophils % 0.3 % Nucleated RBC % 0.0 (0.0-0.3) % Absolute Neutrophils 1.31 (1.2-6.7) 10^3/uL Absolute Lymphocytes 0.83 L (1.2-3.4) 10^3/uL Absolute Monocytes 0.81 H (0.1-0.8) 10^3/uL Absolute Eosinophils 0.06 (0.0-0.7) 10^3/uL Absolute Basophils 0.01 (0.0-0.2) 10^3/uL PT 11.5 H (9.1-11.1) sec INR 1.2 H (0.9-1.1) VBG pH 7.30 L (7.31-7.41) VBG pCO2 51 (41-51) mmHg VBG pO2 27 mmHg VBG HCO3 25 (23-28) mmol/L VBG Total CO2 24 (24-29) mmol/L VBG O2 Saturation 47 % VBG Base Excess -2 (-2-3) mmol/L VBG Lactate 1.2 (0.6-1.4) mmol/L Sodium 128 L (136-145) mmol/L Potassium 5.1 (3.5-5.1) mmol/L Chloride 96 L (98-107) mmol/L Carbon Dioxide 25.3 (21.0-32.0) mmol/L Anion Gap 6.7 (3-11) mmol/L BUN 24 H (7-18) mg/dL Creatinine 1.3 (0.70-1.30) mg/dL Est GFR (CKD-EPI 2020) 58.01 (mL/min/1.73m2) Glucose 99 (74-106) mg/dL Calcium 8.7 (8.5-10.1) mg/dL Magnesium 2.1 (1.8-2.4) mg/dL Total Bilirubin 0.78 (0.2-1.0) mg/dL Conjugated Bilirubin 0.2 (0.0-0.2) mg/dL AST 21 (15-37) U/L ALT 17 (16-63) U/L Alkaline Phosphatase 277 H (46-116) U/L Ammonia 15 (11-32) umol/L Troponin I < 50 (< or =60) ng/L NT-Pro-B Natriuret Pep 254 (<300) pg/mL Total Protein 5.8 L (6.4-8.2) g/dL Albumin 2.0 L (3.4-5.0) g/dL Procalcitonin 0.1 ng/mL TSH 4.15 H (0.36-3.74) uIU/mL Free T4 1.27 (0.76-1.46) ng/dL COVID-19 Source SARS-CoV-2 (PCR) (Negative) Influenza Type A (PCR) (Negative) Influenza Type B (PCR) (Negative) RSV (PCR) (Negative) 12/22/23 11:36 Blood Culture - Pending Blood Intake and Output - 24 Hour Total 12/22/23 10:09 thru 12/23/23 01:31 Intake Total 50 Output Total 635 Balance -585 Weight 69 kg Intake: IV 50 Output: Urine 635 Other: Urine Color Pale Yellow Urine Appearance Clear Urine Odor None Voiding Methods Urinal Falls Risk Assessment History of Falls Previous History 12/22/23 23:05 Contributing Factors Unstable 12/22/23 23:05 Ambulatory Aids Independent 12/22/23 23:05 Tubes/Lines W/no contributing factors 12/22/23 23:05 Gait Evaluation W/any additional score 12/22/23 23:05 Cognition No cognitive impairment 12/22/23 23:05 Fall Total Score 48 12/22/23 23:05 Level of Risk Moderate Risk 12/22/23 23:05 Problems (Last Updated 12/20/23 @ 14:30 by Vince Simmons) Pleural effusion (Acute) Acute dyspnea (Acute) Dyspnea (Acute) Superior vena cava syndrome (Chronic) Non-small cell lung cancer (Chronic) v v v v v v v v v Sending and/or Receiving Nurses: Please use comment section below to note any information pertinent to the patient hand-off not included above. Information / Comments: Pt aphasic and experiencing chest pain on admission due to SOA/ increased work of breathing; following 40mg IV lasix and duoneb tx, pt able to speak in full sentences and chest pain resolved. Pt has a barrel chest, no coughing in ED but had been having a productive cough at home. Pt is able to stand and pivot with assistance. Pt does not use O2 at home but is currently on 2L NC at 96%. Pt is A&Ox2. Report received from:Yara Deras RN
[2023-12-23] MEDS: Normal Saline Flush 10 ML SYR (06:43)
[2023-12-23 06:45] LABS: HCT 28.1 % (40.0-50.0); HGB 8.9 g/dL (13.5-17.5); MCH 32.6 pg (27.0-33.0); MCHC 31.7 % (32.0-36.0); MCV 103 fL (80-95); MPV 8.5 fL (8.0-11.0); Platelet Count 166 10^3/uL (130-400); RBC 2.73 10^6/uL (4.36-5.78); RDW 14.5 % (11.8-14.1); RDW-SD 54.4 fL; WBC 3.12 10^3/uL (4.4-10.8)
[2023-12-23 06:57] LABS: Anion Gap 9.5 mmol/L (3-11); BUN 29 mg/dL (7-18); CO2 24.5 mmol/L (21.0-32.0); CREATININE 1.4 mg/dL (0.70-1.30); Calcium 8.8 mg/dL (8.5-10.1); Chloride 95 mmol/L (98-107); Estimated GFR 53.07 (mL/min/1.73m2); Glucose 102 mg/dL (74-106); Potassium 5.5 mmol/L (3.5-5.1); Sodium 129 mmol/L (136-145)
[2023-12-23 08:09] VITALS: BP 98/63; PULSE 83; RESP 19; TEMP 36.8; O2SAT 100
[2023-12-23] MEDS: Metoclopramide 10 MG TAB 5 MG PO ×4 (08:38→21:59)
[2023-12-23] MEDS: Multivitamin TAB 1 TAB PO (08:38)
[2023-12-23] MEDS: Tamsulosin 0.4 MG CAPCR PO (08:38)
[2023-12-23] MEDS: hydroCHLOROthiazide 12.5 MG TAB PO (08:38)
[2023-12-23] MEDS: Folic Acid 1 MG TAB PO (08:38)
[2023-12-23] MEDS: Apixaban 5 MG TAB PO ×2 (08:40→20:11)
--- NOTE | 2023-12-23 09:53 | PDOC.CMIN ---
Date of service: 12/23/23 Time of Service: 09:53 Care Management Initial Assmt Initial Assessment Reason for Hospitalization: Bilateral pleural effusions Functional Status/Living Situation Patient Presentation: Alberto was sitting up in bed visiting with his Irene when CM met with him. He appeared to have difficulty breathing but was not wearing oxygen at the time. Alberto has 2 children and 5 grandchildren , all local. He is retired from a career in [employer]. He was independent with all care and activities prior to this illness and does not use any ambulatory aids such as a cane or walker. Alberto does not receive any community services. When asked, Alberto informed CM that he expects to be transferred to [facility] for a down and back procedure tomorrow or Sunday to stent his superior vena cava and have drainage tubes placed to alleviate the pleural effusions. CM asked about home health services and Alberto did not seem open to the idea, however Irene stated that she thought a PT consult might be helpful as he has gotten weaker. CM will discuss again with Alberto tomorrow. Town of Residence: [place], [place] Resides with: Spouse (Irene) Significant Other/Family: Local Natural Supports: family Employment Status: Retired ([employer]) Instrumental Activities of Daily Living (ADLs): Independent Medications Medication Management: No Issues/Barriers identified Advance Directives Advance Directives: Do you have an Advance Directive: N 05/21/17 14:36 AD On File at [facility]: N 05/21/17 14:36 Date Asked 12/22/23 12/22/23 10:21 AD Date Reviewed COLST On File at [facility] COLST Date Scanned Code Status Resuscitation Status Full Code Portal Pt does not currently have a portal and education provided: No Insurance Coverage/Financial Issues Insurance: Medicare /[facility] Care Team Visit Care Team Role Provider Type Chau Braxton MD Primary Care Provider NON-[facility] STAFF PHYSICIAN Alcira Castañeda Emergency Provider NURSE PRACTITIONER Javier Huddleston MD Admit Provider [facility] STAFF PHYSICIAN Attending Provider Discharge Potential Discharge Needs: PCP F/U Appt and Surgical F/U Appt Anticipated Barriers to Discharge: Medical Status Patient/Family Education Needs: Review discharge instructions, discuss Ask Me Three Transportation: Private vehicle Plan: Alberto will likely be transferred to [facility] for a down and back procedure within the next day or 2. He has SVC syndrome as well as bilateral pleural effusions. The plan would be to stent his SVC and place drainage tubes for the pleural effusions.Anticipate Alberto will be discharged home when medically cleared with no new services. He will follow up with his community providers, and plan of care and transport with family. CM will continue to assess for and support discharge planning concerns. [facility] All Active Problems (Updated 12/23/23 @ 00:55 by Alcira Castañeda) Pleural effusion (Acute) Acute dyspnea (Acute) Dyspnea (Acute) Erectile dysfunction (Acute) 08/17/2022 Diverticulosis (Acute) of large intestine (06/17/2010) Allergic rhinitis (Acute) 07/25/2022 Hemorrhoids (Acute) 2 of [address] 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 Hyperlipidemia (Acute) 07/23/2020 Adult failure to thrive syndrome (Acute) ONSET: 08/30/2023- From CHEMO Superior vena cava syndrome (Chronic) 08/29/2023 Benign prostatic hyperplasia without urinary obstruction (Acute) 12/17/2023 Mastoiditis (Acute) Occipital mass (Acute) Non-small cell lung cancer (Chronic) Otalgia, left ear (Acute) COVID (Acute) Medical History (Updated 12/23/23 @ 00:55 by Alcira Castañeda) HTN (hypertension) 05/16/2017 Metastatic lung cancer (metastasis from lung to other site) 06/27/2023 Family History (Updated 12/20/23 @ 14:31 by Vince Simmons) Mother Hypertension Social History Smoking/Tobacco Use Status: Former Tobacco Use Smoking risk assessment performed?: Yes Alcohol Intake: former Drug use: Never Substance use type: does not use Housing: house Do you feel safe at home: Yes Do you feel safe in your relationship?: Yes SDOH(Care Management) Screening Will the Patient Participate in the Screening?: Yes Do you worry about having a steady place to live?: no Problems where you live: no known problems In the past 12 months, have you had to go without electric, gas, oil or water in your home?: no Have you or anyone in your house had to go without enough food to eat?: no Has lack of transportation kept you from medical appointments or from doing things needed for daily living?: no Has anyone in your support network made you feel unsafe for any reason?: no
[2023-12-23 10:18] VITALS: O2SAT 94
[2023-12-23 15:25] VITALS: BP 118/68; PULSE 100; RESP 20; TEMP 37; O2SAT 93
--- NOTE | 2023-12-23 17:04 | PGE_ITS ---
Date of Service Date of service: 12/23/23 Time of Service: 17:04 Assessment and Plan Assessment and plan (1) Dyspnea: Status: Acute Assessment and plan: Per my discussion w/ IR fellow at [facility] (Dr. Cassius Ojeda) he reviewed last [facility] CT chest w/ his attending and they can place an SVC stent and also pleural catheters to drain the effusions. They will call tomorrow to set this up. They request a faxed order for the procedures and the patient's H&P and face sheet. The IR fellow indicated to NOT stop his Eliquis as this may lead to a complete occlusion. I also spoke w/ the vascular fellow who indicated that she would need to examine the patient before confirming that vascular would do the procedure but since there are no beds available for transfer, she recommended I call the IR fellow. She did recommend use of KENDALL wrap and elevation of his arms since the vessels are not completely occluded. Full Code Surrogate Decision Maker Irene Ding () [phone] Qualifiers: Dyspnea type: shortness of breath Qualified Code(s): R06.02 - Shortness of breath (2) Non-small cell lung cancer: Status: Chronic Assessment and plan: His current medical oncology reigmen is on hold, Ramucirumab and Pembrolizumab, as he is being evaluated at [facility]. -Follow up at [facility] and [facility] has been schedule for this Sunday according to his . They would like to keep this appointment and hope to have the SVC and pleural catheter completed before this. (3) Superior vena cava syndrome: Status: Chronic Assessment and plan: A CT Venogram on 08/27/23 showed mild compression of the right main pulmonary artery with near occlusion of the distal right brachiocephalic vein and proximal SVC as well as complete occlusion of the left proximal brachiocephalic vein. He was started on Eliquis w/ concern for DVT w/ external compression but a LUE US on 08/09/23 did not show any DVT. -He has significant bilateral upper extremity edema w/ CT venogram showing bilateral complete compression/occlusion of the brachiocephalic veins -He is at high risk for RUE cellulitis w/ significant edema. He has no pain on palpation or warmth but does have a superficial tear w/ clear drainage which will require wound care evaluation -Cont w/ diuresis -Cont w/ Eliquis -Unfortunately there is little we can do at this time as the treatment is for the underlying malignancy -patient and his wish to proceed w/ stent placement, this is being arranged w/ [facility] interventional radiology department (4) HTN (hypertension): Assessment and plan: -Cont w/ Lisinopril-HCTZ Qualifiers: Hypertension type: primary hypertension Qualified Code(s): I10 - Essential (primary) hypertension Subjective Subjective Interval history since last seen: Mr Ding was seen this afternoon and again this evening while his was present. He complains of increasing dyspnea and bilateral lymphedema of his arms that has progressed over the past 2 weeks. He has NSCC of the lung w/ compression of his SVC and brachiocephalic veins. He also has bilateral pleural effusions. He was admitted last night for diuretic therapy. Although he is a patient at [facility] they were never contacted yesteray. I told him and his that I called [facility] and spoke w/ a vascular surgeon who reviewed his CT scan and although she would not render an opinion regarding placement of a stent, without seeing him in person, she agreed that the current CT scan of his chest showed compression of the SVC and she suggested that I call [facility] to see if they would perform an SVC stent in a down and back trip, i.e. not transfer to [facility] as an inpatient. The filling and stapling machine operator indicated that there was no bed capacity and that the patient would not be eligible for a transfer. At first, the indicated that his oncologist and vascular surgeons when they evaluated him in August, (when his bilateral arm lymphedema first began) said that his SVC is open enough that he does not need a stent. However he has had recurrent lymphedema w/ intermittent improvement, the last time occurred late October or beginning of November, however for past 2 weeks it has been getting worse and causing him pain and now he is dyspneic d/t bilateral pleural effusions. They are agreeable to going to [facility] on a down and back procedure for the stent and pleural catheters for drainage of his pleural effusions. Exam Narrative Exam Narrative: Alberto has plethoric appearance although mildly so, no overt facial edema, neck veins are promient Lungs: diminished breath sound bilaterally in the lower half Heart: regular but distant heart tones Abdomen: soft, nondistended, nontender Extremities: both upper arms are with pitting edema 3+ from hands to the upper arms, (skin reportedly weeping fluid but I did not see this since they were already dressed w/ Mepilex, Kerlex and KENDALL wrap) note: KENDALL wraps were per my order as a recommendation from the vascular fellow Legs: no edema of his legs or ankle. Objective Last Vital Signs Temp 37 C 12/23/23 15:25 Pulse 100 H 12/23/23 15:25 Resp 20 12/23/23 15:25 BP 118/68 12/23/23 15:25 Pulse Ox 93 12/23/23 15:25 Laboratory Results - last 24 hr 12/23/23 06:30 WBC 3.12 L RBC 2.73 L Hgb 8.9 L Hct 28.1 L MCV 103 H MCH 32.6 MCHC 31.7 L RDW 14.5 H Plt Count 166 MPV 8.5 Sodium 129 L Potassium 5.5 H Chloride 95 L Carbon Dioxide 24.5 Anion Gap 9.5 BUN 29 H Creatinine 1.4 H Est GFR (CKD-EPI 2020) 53.07 Glucose 102 Calcium 8.8 PAWSS Have you Been Recently Intoxicated or Drunk Within the Last 30 days?: No Have you Ever Experienced Previous Episodes of Alcohol Withdrawal?: No Have you ever Experienced Withdrawal Seizures?: No Have you ever Experienced Delirium Tremens(DT)s?: No Have you ever undergone Alcohol Rehabilitation Treatment (i.e, inpt ot outpatient treatment programs)?: No Have you ever Experienced Blackouts?: No Have you ever Combined Alcohol with other Downers within the last 90 days?: No Have you ever Combined Alcohol with any other Substance of Abuse during the last 90 days?: No Positive Blood Alcohol level on Presentation? [PCS.BAL]: No Evidence of Increased Autonomic Activity (i.e. HR>120, tremor, sweating, agitation, nausea)?: No Result: 0 Time Spent with Patient Time Spent with Patient: 35-49 minutes Time was spent: preparing to see the patient(eg.review tests), ordering medications,tests, procedures, referring, communicating with other health long term care social worker (multiple calls to [facility] in discussion w/ vascular surgery and IR), indepentently interpreting results, counseling the patient and care coordination
[2023-12-23 20:13] VITALS: BP 137/77; PULSE 85; RESP 18; TEMP 36.7; O2SAT 90
--- NOTE | 2023-12-24 | DI.US_ITS ---
Exam(s) US EXTREMITY VENOUS BI EXAM: US EXTREMITY VENOUS BI CLINICAL HISTORY: Bilateral upper extremity swelling TECHNIQUE: GRAYSCALE, COLOR, DOPPLER IMAGING OF THE VENOUS SYSTEM OF THE UPPER EXTREMITY-BILATERAL Grayscale, color, and doppler imaging of the deep venous system of both upper extremities was perform ed. COMPARISON: Prior ultrasound 09/07/2023 FINDINGS: RIGHT UPPER EXTREMITY: Basilic vein: Patent. Normal color-flow and normal compression and augmentation properties. Brachial vein(s):Patent. Normal color flow. Normal compression and augmentation properties. Cephalic vein:Patent. Normal color flow. Normal compression and augmentation properties. Axillary vein: Patent. Normal color flow. Normal compression and augmentation properties. Visualized subclavian vein: Patent. No obvious intraluminal thrombus. LEFT UPPER EXTREMITY: The median cubital vein was not able to be visualized due to intravenous dressing. The left cephalic vein and brachial vein and basal veins are demonstrated to be patent as is the left axillary vein. There is a small amount of residual nonocclusive thrombus in segments of the left subclavian vein. T he ipsilateral internal jugular vein is also smaller when compared to the opposite-right side with sm all flow channel, this implying some degree of nonocclusive thrombus at this level. IMPRESSION: 1. No evidence of venous thrombosis in the right upper extremity. 2. Small amount of residual nonocclusive thrombus in segments of the left subclavian vein. 3. Somewhat narrowed and poor compressibility of the left internal jugular vein in the lower neck im plying some degree of nonocclusive thrombus at this level. DATA REPOSITORY:
[2023-12-24 07:00] LABS: Anion Gap 5.4 mmol/L (3-11); BUN 30 mg/dL (7-18); CO2 25.6 mmol/L (21.0-32.0); CREATININE 1.7 mg/dL (0.70-1.30); Calcium 8.8 mg/dL (8.5-10.1); Chloride 95 mmol/L (98-107); Estimated GFR 42.04 (mL/min/1.73m2); Glucose 102 mg/dL (74-106); Potassium 4.8 mmol/L (3.5-5.1); Sodium 126 mmol/L (136-145)
[2023-12-24 08:01] VITALS: BP 119/69; PULSE 88; RESP 18; TEMP 36.4; O2SAT 92
[2023-12-24] MEDS: hydroCHLOROthiazide 12.5 MG TAB PO (08:14)
[2023-12-24] MEDS: Metoclopramide 10 MG TAB 5 MG PO ×2 (08:15→12:41)
[2023-12-24] MEDS: Tamsulosin 0.4 MG CAPCR PO (08:17)
[2023-12-24] MEDS: Multivitamin TAB 1 TAB PO (08:17)
[2023-12-24] MEDS: Folic Acid 1 MG TAB PO (08:18)
[2023-12-24] MEDS: Apixaban 5 MG TAB PO ×2 (08:18→20:56)
--- NOTE | 2023-12-24 08:42 | CMPROGNOTE_ITS ---
Date of service: 12/24/23 Time of Service: 08:42 Care Management Progress Note Progress Note Text Progress Note Text: Alberto was sitting on the side of his bed when CM met with him. He is scheduled with [facility] tomorrow at 230, CM notified RN tilt wall supervisor and updated white board. RN Personal Lines Account Executive agrees to coordinated EMS. Pt also reviewed tomorrows plan with the hospitalist during this interaction. CM will follow. Discharge Potential Discharge Needs: PCP F/U Appt and Surgical F/U Appt Anticipated Barriers to Discharge: Medical Status Patient/Family Education Needs: Review discharge instructions, discuss Ask Me Three Transportation: Private vehicle Plan: Alberto is being transferred to [facility] for a down and back procedure scheduled 12/25/23 at 1430. Anticipate Alberto will be discharged home when medically cleared with no new services. He will follow up with his community providers, and plan of care and transport with family. CM will continue to assess for and support discharge planning concerns. SDOH(Care Management) Screening Will the Patient Participate in the Screening?: Yes Do you worry about having a steady place to live?: no Problems where you live: no known problems In the past 12 months, have you had to go without electric, gas, oil or water in your home?: no Have you or anyone in your house had to go without enough food to eat?: no Has lack of transportation kept you from medical appointments or from doing things needed for daily living?: no Has anyone in your support network made you feel unsafe for any reason?: no
--- NOTE | 2023-12-24 14:14 | W.PM.PROGNOT ---
Date of Service Date of service: 12/24/23 Time of Service: 14:14 Assessment and Plan Assessment and plan (1) Dyspnea: Status: Acute Assessment and plan: -previous physican discussed with w/ IR fellow at [facility] (Dr. Cassius Ojeda) -reviewed CT chest w/ his attending and they can place an SVC stent and also pleural catheters to drain the effusions. -this is set up for tomorrow, Sunday12/25/2023 -IR fellow indicated to NOT stop his Eliquis as this may lead to a complete occlusion. -previous physician also spoke with vascular fellow who indicated that she would need to examine the patient before confirming that vascular would do the procedure but since there are no beds available for transfer, and recommended I call the IR fellow. She did recommend use of KENDALL wrap and elevation of his arms since the vessels are not completely occluded. Qualifiers: Dyspnea type: shortness of breath Qualified Code(s): R06.02 - Shortness of breath (2) Non-small cell lung cancer: Status: Chronic Assessment and plan: -current medical oncology elli is on hold, Ramucirumab and Pembrolizumab, as he is being evaluated at [facility]. -Follow up at [facility] and [facility] has been schedule for this Sunday according to his . They would like to keep this appointment and hope to have the SVC and pleural catheter completed before this. 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 -was started on Eliquis w/ concern for DVT w/ external compression but a LUE US on 08/09/23 did not show any DVT. -has significant bilateral upper extremity edema w/ CT venogram showing bilateral complete compression/occlusion of the brachiocephalic veins -at high risk for RUE cellulitis w/ significant edema. He has no pain on palpation or warmth but does have a superficial tear w/ clear drainage which will require wound care evaluation -Cont w/ diuresis -Cont w/ Eliquis -Unfortunately there is little we can do at this time as the treatment is for the underlying malignancy -patient and his wish to proceed w/ stent placement, this is arranged w/ [facility] interventional radiology department as noted above (4) HTN (hypertension): Assessment and plan: -Cont w/ Lisinopril-HCTZ Qualifiers: Hypertension type: primary hypertension Qualified Code(s): I10 - Essential (primary) hypertension Subjective Subjective Interval history since last seen: Patient states that he is doing well today. He understands that his [id number] IR procedures at [facility] are scheduled for tomorrow, Sunday12/25/2023. Otherwise he has no complaints or concerns at this time. Exam Narrative Exam Narrative: chronically ill appearing gentleman sitting up on the edge of the bed in no acute distress, AOx4, heart RRR, lungs diminished bilaterally to about half way up lung kim, abdomen soft, non-tender, non-distended, pitting edema in bilateral upper extremities with weeping of clear fluid and wrapped in kendall bandages Objective Last Vital Signs Temp 97.5 F L 12/24/23 08:01 Pulse 88 12/24/23 08:01 Resp 18 12/24/23 08:01 BP 119/69 12/24/23 08:01 Pulse Ox 92 12/24/23 08:01 Laboratory Results - last 24 hr 12/24/23 06:25 Sodium 126 L Potassium 4.8 Chloride 95 L Carbon Dioxide 25.6 Anion Gap 5.4 BUN 30 H Creatinine 1.7 H Est GFR (CKD-EPI 2020) 42.04 Glucose 102 Calcium 8.8 PAWSS Have you Been Recently Intoxicated or Drunk Within the Last 30 days?: No Have you Ever Experienced Previous Episodes of Alcohol Withdrawal?: No Have you ever Experienced Withdrawal Seizures?: No Have you ever Experienced Delirium Tremens(DT)s?: No Have you ever undergone Alcohol Rehabilitation Treatment (i.e, inpt ot outpatient treatment programs)?: No Have you ever Experienced Blackouts?: No Have you ever Combined Alcohol with other Downers within the last 90 days?: No Have you ever Combined Alcohol with any other Substance of Abuse during the last 90 days?: No Positive Blood Alcohol level on Presentation? [PCS.BAL]: No Evidence of Increased Autonomic Activity (i.e. HR>120, tremor, sweating, agitation, nausea)?: No Result: 0 Time Spent with Patient Time Spent with Patient: >50 minutes Time was spent: preparing to see the patient(eg.review tests), obtaining and/or reviewing separately otained hiistory, ordering medications,tests, procedures, referring, communicating with other health care specialist, indepentently interpreting results, counseling the patient and care coordination
[2023-12-24 14:58] VITALS: BP 131/64; PULSE 71; RESP 20; TEMP 36.2; O2SAT 91
[2023-12-24] MEDS: Mirtazapine 15 MG TAB 30 MG PO (20:56)
[2023-12-24 21:20] VITALS: O2SAT 98
[2023-12-24 23:50] VITALS: BP 142/71; PULSE 82; RESP 20; TEMP 36.5; O2SAT 94
[2023-12-25 07:33] VITALS: BP 135/64; PULSE 87; RESP 18; TEMP 36.5; O2SAT 93
[2023-12-25 08:04] VITALS: O2SAT 95
[2023-12-25] MEDS: Tamsulosin 0.4 MG CAPCR PO (08:05)
[2023-12-25] MEDS: Folic Acid 1 MG TAB PO (08:05)
[2023-12-25] MEDS: hydroCHLOROthiazide 12.5 MG TAB PO (08:05)
[2023-12-25] MEDS: Multivitamin TAB 1 TAB PO (08:05)
--- NOTE | 2023-12-25 08:51 | CMPROGNOTE_ITS ---
Date of service: 12/25/23 Time of Service: 08:51 Care Management Progress Note Progress Note Text Progress Note Text: Alberto is going to [facility] IR for a down and back procedure scheduled at 1430. EMS will be here at 11:10am, coordinated by RN Vamp Throater. CM will follow. Discharge Potential Discharge Needs: PT Evaluation and PCP F/U Appt Anticipated Barriers to Discharge: Medical Status Patient/Family Education Needs: Review discharge instructions, discuss Ask Me Three Transportation: Private vehicle Plan: Alberto is being transferred to [facility] IR for a down and back procedure today at 1430. Anticipate, Alberto will be discharged home when medically cleared with new services, if indicated. He will follow up with his community providers, and plan of care and transport with family. CM will continue to assess for and support discharge planning concerns. SDOH(Care Management) Screening Will the Patient Participate in the Screening?: Yes Do you worry about having a steady place to live?: no Problems where you live: no known problems In the past 12 months, have you had to go without electric, gas, oil or water in your home?: no Have you or anyone in your house had to go without enough food to eat?: no Has lack of transportation kept you from medical appointments or from doing things needed for daily living?: no Has anyone in your support network made you feel unsafe for any reason?: no
[2023-12-25 08:58] VITALS: RESP 32; O2SAT 80
[2023-12-25 08:59] VITALS: RESP 28; O2SAT 92
--- NOTE | 2023-12-25 10:23 | W.PM.PROGNOT ---
Date of Service Date of service: 12/25/23 Time of Service: 10:24 Assessment and Plan Assessment and plan (1) Dyspnea: Status: Acute Assessment and plan: -previous physican discussed with w/ IR fellow at [facility] (Dr. Cassius Ojeda) -reviewed CT chest w/ his attending and they can place an SVC stent and also pleural catheters to drain the effusions. -this is set up for todayT12/25/2023 -IR fellow indicated to NOT stop his Eliquis as this may lead to a complete occlusion. -previous physician also spoke with vascular fellow who indicated that she would need to examine the patient before confirming that vascular would do the procedure but since there are no beds available for transfer, and recommended I call the IR fellow. She did recommend use of KENDALL wrap and elevation of his arms since the vessels are not completely occluded. Qualifiers: Dyspnea type: shortness of breath Qualified Code(s): R06.02 - Shortness of breath (2) Non-small cell lung cancer: Status: Chronic Assessment and plan: -current medical oncology reigmen is on hold, Ramucirumab and Pembrolizumab, as he is being evaluated at [facility]. -Follow up at [facility] and [facility] has been schedule for this Sunday according to his . They would like to keep this appointment and hope to have the SVC and pleural catheter completed before this. 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 -was started on Eliquis w/ concern for DVT w/ external compression but a LUE US on 08/09/23 did not show any DVT. -has significant bilateral upper extremity edema w/ CT venogram showing bilateral complete compression/occlusion of the brachiocephalic veins -at high risk for RUE cellulitis w/ significant edema. He has no pain on palpation or warmth but does have a superficial tear w/ clear drainage which will require wound care evaluation -Cont w/ diuresis -Cont w/ Eliquis -Unfortunately there is little we can do at this time as the treatment is for the underlying malignancy -patient and his wish to proceed w/ stent placement, this is arranged w/ [facility] interventional radiology department as noted above (4) HTN (hypertension): Assessment and plan: -Cont w/ Lisinopril-HCTZ Qualifiers: Hypertension type: primary hypertension Qualified Code(s): I10 - Essential (primary) hypertension (5) Acute respiratory failure with hypoxia: Status: Acute Assessment and plan: -secondary to worsening pleural effusions -plan to go to [facility] today for chest tube placement and fluid drainage Subjective Subjective Interval history since last seen: Patient states that he was short of breath this morning but feels better after being placed on 1L supplemental oxygen and a dose of IV morphine. He is happy that he will have his procedures dont at [facility] today and has no other complaints or concerns at this time. Exam Narrative Exam Narrative: chronically ill appearing gentleman laying in no acute distress, AOx4, 1L NC in place, heart RRR, lungs diminished bilaterally to about half way up lung kim, abdomen soft, non-tender, non-distended, pitting edema in bilateral upper extremities with weeping of clear fluid and wrapped in kendall bandages Objective Last Vital Signs Temp 97.7 F 12/25/23 07:33 Pulse 87 12/25/23 07:33 Resp 28 H 12/25/23 08:59 BP 135/64 12/25/23 07:33 Pulse Ox 92 12/25/23 08:59 PAWSS Have you Been Recently Intoxicated or Drunk Within the Last 30 days?: No Have you Ever Experienced Previous Episodes of Alcohol Withdrawal?: No Have you ever Experienced Withdrawal Seizures?: No Have you ever Experienced Delirium Tremens(DT)s?: No Have you ever undergone Alcohol Rehabilitation Treatment (i.e, inpt ot outpatient treatment programs)?: No Have you ever Experienced Blackouts?: No Have you ever Combined Alcohol with other Downers within the last 90 days?: No Have you ever Combined Alcohol with any other Substance of Abuse during the last 90 days?: No Positive Blood Alcohol level on Presentation? [PCS.BAL]: No Evidence of Increased Autonomic Activity (i.e. HR>120, tremor, sweating, agitation, nausea)?: No Result: 0 Time Spent with Patient Time Spent with Patient: >50 minutes Time was spent: preparing to see the patient(eg.review tests), obtaining and/or reviewing separately otained hiistory, ordering medications,tests, procedures, referring, communicating with other health rn palliative care, indepentently interpreting results, counseling the patient and care coordination
[2023-12-25] MEDS: MORPHine 2 MG/ML SYR 1 MG IVP (10:48)
[2023-12-25 11:07] VITALS: BP 125/62; PULSE 87; RESP 26; TEMP 36.9; O2SAT 94
[2023-12-25] MEDS: Bumetanide 1 MG/4 ML VIAL IVP (11:09)
--- NOTE | 2023-12-25 11:44 | NUR.NOTE ---
Nursing Note: Report to Galilea BROWN at [facility] intervention radiology department regarding transfer.
--- NOTE | 2023-12-25 17:25 | W.PM.DS.N ---
Date of service: 12/25/23 Time of Service: 17:25 DS: Diagnosis Discharge Diagnosis (1) Dyspnea: Status: Acute Asessment and Plan: -previous physican discussed with w/ IR fellow at [facility] (Dr. Cassius Ojeda) -reviewed CT chest w/ his attending and they can place an SVC stent and also pleural catheters to drain the effusions. -thiswas set up for Sunday12/25/2023, but upon arrival to [facility] we at [facility] were informed that the patient would be staying [facility] -IR fellow indicated to NOT stop his Eliquis as this may lead to a complete occlusion. -previous physician also spoke with vascular fellow who indicated that she would need to examine the patient before confirming that vascular would do the procedure but since there are no beds available for transfer, and recommended I call the IR fellow. She did recommend use of KENDALL wrap and elevation of his arms since the vessels are not completely occluded. (2) Non-small cell lung cancer: Status: Chronic Asessment and Plan: -current medical oncology reigmen is on hold, Ramucirumab and Pembrolizumab, as he is being evaluated at [facility]. -Follow up at [facility] and [facility] has been schedule for this Sunday according to his . They would like to keep this appointment and hope to have the SVC and pleural catheter completed before this. 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 -was started on Eliquis w/ concern for DVT w/ external compression but a LUE US on 08/09/23 did not show any DVT. -has significant bilateral upper extremity edema w/ CT venogram showing bilateral complete compression/occlusion of the brachiocephalic veins -at high risk for RUE cellulitis w/ significant edema. He has no pain on palpation or warmth but does have a superficial tear w/ clear drainage which will require wound care evaluation -Cont w/ diuresis -Cont w/ Eliquis -Unfortunately there is little we can do at this time as the treatment is for the underlying malignancy -patient and his wish to proceed w/ stent placement, this is arranged w/ [facility] interventional radiology department as noted above (4) HTN (hypertension): (5) Acute respiratory failure with hypoxia: Status: Acute Asessment and Plan: -secondary to worsening pleural effusions Discharge Plan Disposition Patient Disposition: Transfer-Acute Inpatient Care Specific Acute Inpt Facility: [facility] Condition: Fair Discharge Details Reason For Visit: Dyspnea due to bilateral pleural effusion Admit Date/Time: 12/22/23 21:43 Admit Provider: Javier Huddleston Attending Provider: Javier Huddleston Primary Care Provider: Chau Braxton [facility] Course Hospital Course: The patient was initially admitted with signs and symptoms that was determined to be secondary to SVC syndrome from non-small cell carcinoma of the lung. Additionally, the patient had bilateral pleural effusions. He was admitted and plan was for patient to have been there and back interventional radiology stent placement for his SVC syndrome as well as chest tubes for his pleural effusions. However, after patient was sent down to [facility] for his procedures, [facility] was informed that the patient would not be returning to [facility] and would stay admitted at [facility]. Home Meds and New Rx's Prescriptions: No Action acetaminophen [Tylenol] 325 mg capsule 325 mg PO Q6H PRN All Day Allergy (cetirizine) 10 mg capsule 10 mg PO DAILY PRN lidocaine HCl 2 % solution 1 applic mucous membrane BID metoclopramide HCl 5 mg tablet 5 mg PO QID Rx Instructions: administer 30 minutes before meals mirtazapine 30 mg tablet 30 mg PO QHS multivitamin Tablet 1 tab PO DAILY ofloxacin 0.3 % drops 10 drp otic (ear) DAILY prochlorperazine maleate 10 mg tablet 10 mg PO QID PRN tamsulosin 0.4 mg capsule 0.4 mg PO DAILY folic acid 1 mg tablet 1 mg PO DAILY Patient Comments: TAKE ONE TABLET BY MOUTH ONCE DAILY lisinopril-hydrochlorothiazide 10-12.5 mg tablet 1 tab PO DAILY chlorhexidine gluconate 0.12 % mouthwash 15 ml mucous membrane DAILY calcium carbonate-vitamin D2 600 mg calcium- 200 unit tablet 1 tab PO BID ondansetron HCl 4 mg tablet 4 mg PO Q8H PRN Patient Comments: Take 1 tablet by mouth every 6 hours as needed, for nausea Eliquis DVT-PE Treat 30D Start 5 mg (74 tabs) tablets,dose pack 5 mg PO BID Patient Comments: Take 2 ( 5 mg Tablets ) twice daily for 5 days then change dose to 1 ( 5 mg tablet twice daily) ipratropium bromide 42 mcg (0.06 %) spray,non-aerosol 2 spray INTRANASAL TID PRN Patient Comments: Boutte 2 sprays in each nostril 3 times a day as needed Discharge Instructions Activity:: Activity as Tolerated Equipment/Supplies:: No Equipment Needed Diet:: As Tolerated Discharge Orders Discharge Orders: Discharge Order (Routine); Ordered 12/25/23 Ordered By: Jani Levin DS: Summary Time Spent with Patient providing and/or coordinating discharge services: Greater than 30 minutes Status at Discharge Functional status at discharge: independent ambulation Overall status at discharge: patient is back to baseline Mental Status: mental status grossly normal Speech and Movement: speech and movement normal Mood: congruent mood Affect: normal affect Quality:SDOH Health Related Social Needs: No Data to Display Exam Narrative Exam Narrative: chronically ill appearing gentleman laying in no acute distress, AOx4, 1L NC in place, heart RRR, lungs diminished bilaterally to about half way up lung kim, abdomen soft, non-tender, non-distended, pitting edema in bilateral upper extremities with weeping of clear fluid and wrapped in kendall bandages Psych Mental Status: mental status grossly normal Speech and Movement: speech and movement normal Mood: congruent mood Affect: normal affect DS: Data Vitals/I&O Vitals and I&O: Vital Signs Temperature 98.4 F 12/25/23 11:07 Temperature Source Tympanic 12/25/23 11:07 Pulse 87 12/25/23 11:07 Pulse Rhythm Regular 12/24/23 20:52 Pulse 81 12/22/23 22:31 Respiratory Rate 26 H 12/25/23 11:07 Respiratory Effort Short of Breath, Labored, Accessory Muscle Use 12/25/23 10:25 Respiratory Depth Shallow 12/25/23 10:25 Respiratory Pattern Tachypnea 12/25/23 10:25 Blood Pressure 125/62 12/25/23 11:07 Blood Pressure Mean 79 12/22/23 22:30 Pulse Oximetry 94 12/25/23 11:07 Oxygen Delivery Method Nasal Cannula 12/25/23 11:07 Oxygen Flow Rate 2 12/25/23 11:07 Pain Level 0 12/24/23 14:58 Comment pt continues to feel sob, using all muscles to breath 12/25/23 10:31 Intake & Output 12/24/23 12/25/23 12/25/23 17:59 05:59 17:59 Intake Total 570 / 570 240 / 240 Output Total 600 / 600 100 / 100 Balance -30 / -30 140 / 140 Intake: IV Oral 560 / 560 240 / 240 Output: Urine 600 / 600 100 / 100 Other: Urine Color Yellow Straw Urine Appearance Clear Clear Clear Urine Odor None Normal Comment pt has voided only a dribble amount in urinal. Voiding Methods Toilet Urinal Urinal Data Completed and Pending Labs on day of discharge: Preliminary micro results at discharge 12/22/23 11:36 Blood Culture - Preliminary Blood NO GROWTH 72 HOURS PFSH All Active Problems (Updated 12/25/23 @ 10:25 by Jani Levin MD) Acute respiratory failure with hypoxia (Acute) Pleural effusion (Acute) Acute dyspnea (Acute) Dyspnea (Acute) Erectile dysfunction (Acute) 08/17/2022 Diverticulosis (Acute) of large intestine (06/17/2010) Allergic rhinitis (Acute) 07/25/2022 Hemorrhoids (Acute) 2 of [address] 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 Hyperlipidemia (Acute) 07/23/2020 Adult failure to thrive syndrome (Acute) ONSET: 08/30/2023- From CHEMO Superior vena cava syndrome (Chronic) 08/29/2023 Benign prostatic hyperplasia without urinary obstruction (Acute) 12/17/2023 Mastoiditis (Acute) Occipital mass (Acute) Non-small cell lung cancer (Chronic) Otalgia, left ear (Acute) COVID (Acute) Medical History (Updated 12/25/23 @ 10:25 by Jani Levin MD) HTN (hypertension) 05/16/2017 Metastatic lung cancer (metastasis from lung to other site) 06/27/2023 Family History (Updated 12/20/23 @ 14:31 by Vince Simmons) Mother Hypertension Social History Smoking/Tobacco Use Status: Former Tobacco Use Smoking risk assessment performed?: Yes Alcohol Intake: former Drug use: Never Substance use type: does not use Housing: house Do you feel safe at home: Yes Do you feel safe in your relationship?: Yes Time Spent with Patient Time Spent with Patient: <45 minutes Time was spent: preparing to see the patient(eg.review tests), obtaining and/or reviewing separately otained hiistory, ordering medications,tests, procedures, referring, communicating with other health childcare director, indepentently interpreting results, counseling the patient and care coordination
== END 2023-12-25 17:24 | disposition short-term general hospital (02) | DRG 186 ==
LOC: ER 22:32 → MS 22:49
PROVIDERS: Internal Medicine; Physician Assistant; Admitting Provider Student in an Organized Health Care Education/Training Program; Emergency Provider Nurse Practitioner Family; PCP Family Medicine; Visit Provider Student in an Organized Health Care Education/Training Program
DX: J90 Pleural effusion, not elsewhere classified (principal); J96.01 Acute respiratory failure with hypoxia; I87.1 Compression of vein; C34.01 Malignant neoplasm of right main bronchus; C79.51 Secondary malignant neoplasm of bone; C79.31 Secondary malignant neoplasm of brain; C77.1 Secondary and unspecified malignant neoplasm of intrathoracic lymph nodes; C79.70 Secondary malignant neoplasm of unspecified adrenal gland; I10 Essential (primary) hypertension; Z79.899 Other long term (current) drug therapy; D70.1 Agranulocytosis secondary to cancer chemotherapy; D64.81 Anemia due to antineoplastic chemotherapy; I28.8 Other diseases of pulmonary vessels; Z79.01 Long term (current) use of anticoagulants; I89.0 Lymphedema, not elsewhere classified; K57.30 Diverticulosis of large intestine without perforation or abscess without bleeding; E78.5 Hyperlipidemia, unspecified; N40.0 Benign prostatic hyperplasia without lower urinary tract symptoms; J30.9 Allergic rhinitis, unspecified; Z87.891 Personal history of nicotine dependence
CPT/HCPCS: 00123; 36415; 80048; 80076; 82805; 84145; 85027; 87040; 87637; 93005; 94640; 96365; 96366; 96375; 96376; 99285; 71046; 71260; 82140; 83605; 83735; 83880; 84439; 84443; 84484; 85025; 85610; 93010; 93970; 94760; 99222; 99232; 99233; 99238; J0696; J1939; J1940; J2270; J3490; J7613; J7620